=== PATIENT | male | born 1950 | race American Indian/Alaskan Native ===

== ENCOUNTER 2018-08-16 10:16 | Outpatient (REF) | payer MEDICARE, BC, SELFPAY ==
[2018-08-16 13:38] LABS: Anion Gap 8.6 mmol/L (3-11); BUN 14 mg/dL (7-18); CO2 29.4 mmol/L (21.0-32.0); CREATININE 0.96 mg/dL (0.70-1.30); Calcium 9.3 mg/dL (8.5-10.1); Chloride 104 mmol/L (98-107); Glucose 101 mg/dL (70-100); Potassium 3.8 mmol/L (3.5-5.1); Sodium 142 mmol/L (136-145)
== END 2018-08-16 10:36 ==
LOC: NCHCN 10:16
PROVIDERS: PCP Family Medicine; Visit Provider Family Medicine
DX: I10 Essential (primary) hypertension (principal)
CPT/HCPCS: 80048

== ENCOUNTER 2019-11-16 10:27 | Emergency (ER) | payer MEDICARE, BC, SELFPAY ==
[2019-11-16] VITALS (47 sets, daily range): BP systolic 138–164; BP diastolic 70–97; PULSE 65–87; RESP 7–27; TEMP 36.6; O2SAT 93–99
--- NOTE | 2019-11-16 10:30 | DI.CT_ITS ---
EXAM: CT HEAD CERVICAL SPINE WO CLINICAL HISTORY: Trauma, fall 8 feet TECHNIQUE: COMPARISON: No exams were available for comparison FINDINGS: Noncontrast cranial CT was performed. No calvarial fracture seen. Paranasal sinuses and mastoid air cells appear clear as visualized. Orbital and temporal bone structures appear intact. There is an ossified left frontal mass arising from the inner table of the skull or dura, the finding s are suggestive of meningioma. No prior studies available for comparison. There is no evidence of acute intracranial hemorrhage, mass effect, or midline shift. Cervical spine CT was performed utilizing multi slice imaging and multi planar reconstruction. Image s obtained through the lung apices are unremarkable. No cervical mass or adenopathy. Unremarkable a ppearance of the tracheal laryngeal structures. There are moderate degenerative changes of the cervical spine with multilevel disc space narrowing of the lower cervical spine and moderate hypertrophic spurring of the facet joints and endplates. There is no evidence of acute cervical spine fracture or dislocation. IMPRESSION: No evidence of acute cervical spine injury. No evidence of acute intracranial injury, incidental note is made of a 21 millimeter in diameter ossi fied left frontal mass highly suggestive of meningioma. Additional evaluation with MR both pre and p ost contrast is suggested to confirm this diagnosis and to evaluate for additional meningiomas in the brain. RADIATION DOSE DELIVERED: 0000 Total DLP
--- NOTE | 2019-11-16 10:30 | DI.CT_ITS ---
EXAM: CT CHEST WO CLINICAL HISTORY: Left rib pain, trauma TECHNIQUE: COMPARISON: CT CT HEAD CERVICAL SPINE WO from 11/16/2019 FINDINGS: CT examination of the chest was performed without contrast administration. Images obtained through t he upper abdomen show unremarkable appearance of visualized portions of spleen pancreas kidneys and a drenals. There is a tiny low-attenuation right hepatic lobe rounded lesion consistent with cyst or h emangioma. Note is made of cholelithiasis without biliary dilatation. No mediastinal mass, adenopathy, or hematoma. Cardiac size is normal. Tracheobronchial tree appears intact. No pleural effusion. No pneumothorax. Lungs are clear. There is mildly displaced left 7th rib fracture posterolaterally. No other bony thoracic injury seen . IMPRESSION: Left 7th rib fracture, mildly displaced. No associated pneumothorax or hemothorax. Cholelithiasis noted. RADIATION DOSE DELIVERED: 000
--- NOTE | 2019-11-16 10:42 | ED.GENADUL_ITS ---
Discharge Plan Disposition Condition: Stable Discharge Details Chief Complaint: Trauma Clinical Impression: Left rib fracture, Laceration of lower lip, Chin laceration, Blunt head trauma, Blunt chest trauma Primary Care Provider: Олег Haque ED Provider: Zuleyma James Home Meds and New Rx's Prescriptions: No Action cetirizine 10 mg tablet 10 mg PO DAILY RF: 0 aspirin [Aspir-81] 81 mg Tablet,Delayed Release (Dr/Ec) 81 mg PO DAILY RF: 0 lisinopril-hydrochlorothiazide 20-25 mg tablet 1 tab PO DAILY RF: 0 multivitamin Tablet 1 tab PO DAILY RF: 0 ascorbic acid (vitamin C) [Vitamin C] 500 mg Tablet 500 mg PO DAILY RF: 0 cholecalciferol (vitamin D3) [Vitamin D3] 25 mcg (1,000 unit) Capsule 25 mcg PO DAILY RF: 0 Glucosamine Chondroitin 550-30-1 mg Capsule 1 cap PO DAILY RF: 0 Discharge Instructions Instructions: Rib Fracture (ED), Head Injury (ED), Facial Laceration (ED) Additional Instructions: Follow up with primary care provider in 3-5 days. Return to ED sooner if any worsening or concerns. Increase oral fluids. Have chin sutures removed in 5 to 7 days return sooner or be seen if any signs of infection including increased redness, red streaks, swelling, drainage or fever. The lip suture is dissolvable and will dissolve on its own. Please take Tylenol or Ibuprofen with food every 4-6 hours as needed for pain and swelling. You will be sore for the next couple of days. Return immediately to the ER if you have any worsening chest pain, shortness of breath, fever coughing up blood or sputum. No soaking to your wounds, you may wash wounds under running soap and water daily allow to air dry as much as possible. Keep clean and dry. Please follow up with [facility] Neurosurgery ? ?Location: Neurosurgery is located at [facility] in [place], [place] on the third floor, [employer] [address]. Referrals: Олег Haque [Primary Care Provider] - Activity:: Activity as Tolerated Shower/Bathe:: 24 hours Diet:: As Tolerated Medical Decision Making <Zuleyma James - Last Filed: 08/13/20 15:17> 1121: Spoke with patient's Ajit, who reports she found patient on his back he appeared somewhat woozy but never lost consciousness. At this time official CT report is pending, this appears to be some intracranial hemorrhage noted on head CT. Images pushed to [facility]. Patient does take aspirin daily, images being pushed to [facility] at this time. IV orders and blood work in place. Discussed preliminary results with patient, verbalizes understanding. He is complaining a little bit of nausea denies any headache, no focal neuro deficits noted at this time. Pupils are PERRLA. Let was applied to the chin laceration. 1137: Spoke with Dr. Cueva radiologist regarding patient CTs he feels at this time is not acute traumatic bleeding but rather a meningioma in the left frontal lobe, no abnormalities noted on the C-spine. Discussed updated findings with patient and , verbalized understanding. Other findings include 7th left posterior lateral rib fracture. Radiology notified to push images to [facility]. 1139: [facility] Neurosurgery paged for consult. Patient continues to deny headache no history of complaints of headache no visual disturbances no neuro deficits noted. EXAM: CT CHEST WO CLINICAL HISTORY: Left rib pain, trauma TECHNIQUE: COMPARISON: CT CT HEAD CERVICAL SPINE WO from 11/16/2019 FINDINGS: CT examination of the chest was performed without contrast administration. Images obtained through the upper abdomen show unremarkable appearance of visualized portions of spleen pancreas kidneys and adrenals. There is a tiny low-attenuation right hepatic lobe rounded lesion consistent with cyst or hemangioma. Note is made of cholelithiasis without biliary dilatation. No mediastinal mass, adenopathy, or hematoma. Cardiac size is normal. Tracheobronchial tree appears intact. No pleural effusion. No pneumothorax. Lungs are clear. There is mildly displaced left 7th rib fracture posterolaterally. No other bony thoracic injury seen. IMPRESSION: Left 7th rib fracture, mildly displaced. No associated pneumothorax or hemothorax. Cholelithiasis noted. EXAM: CT HEAD CERVICAL SPINE WO CLINICAL HISTORY: Trauma, fall 8 feet TECHNIQUE: COMPARISON: No exams were available for comparison FINDINGS: Noncontrast cranial CT was performed. No calvarial fracture seen. Paranasal sinuses and mastoid air cells appear clear as visualized. Orbital and temporal bone structures appear intact. There is an ossified left frontal mass arising from the inner table of the skull or dura, the findings are suggestive of meningioma. No prior studies available for comparison. There is no evidence of acute intracranial hemorrhage, mass effect, or midline shift. Cervical spine CT was performed utilizing multi slice imaging and multi planar reconstruction. Images obtained through the lung apices are unremarkable. No cervical mass or adenopathy. Unremarkable appearance of the tracheal laryngeal structures. There are moderate degenerative changes of the cervical spine with multilevel disc space narrowing of the lower cervical spine and moderate hypertrophic spurring of the facet joints and endplates. There is no evidence of acute cervical spine fracture or dislocation. IMPRESSION: No evidence of acute cervical spine injury. No evidence of acute intracranial injury, incidental note is made of a 21 millimeter in diameter ossified left frontal mass highly suggestive of meningioma. Additional evaluation with MR both pre and post contrast is suggested to confirm this diagnosis and to evaluate for additional meningiomas in the brain. 1339: [facility] re-paged still have not heard back neurosurgery. Transfer center [facility] states that the images are just now being uploaded there and at 1330. 1430: Spoke with [facility] transfer center [facility] again she informs me that neurosurgery is in a case at this time it may be up to 40 more minutes until they call me back. We will order an MRI with and without brain as suggested in the CT read discussed this with patient, verbalized understanding. He is complaining of 2 or 3 out of 10 generalized tenderness to his chest wall and continues to be neurologically stable. 1440: Spoke with Dr. Gomez with neurosurgery [facility] who was personally able to view the CT he does agree with a benign meningioma diagnosis. He does not recommend emergent MRI at this time. He states that he will schedule patient for an outpatient visit and schedule outpatient MRI. MRI canceled at this time and patient discussed follow-up care and plan of care, verbalized understanding. Discussed home care and follow-up with patient, verbalized understanding. Patient ambulatory out of department without assistance. <Chai Saucedo MD - Last Filed: 11/16/19 11:56> I had a [id number] encounter with the patient. I evaluated the patient. I discussed case with MAIL TELLER/PA and I reviewed MAIL TELLER/PA note and agree with note as documented HPI <Zuleyma James - Last Filed: 11/16/19 15:17> General Mode of arrival: EMS . Date/Time Provider Initiated Documentation: 11/16/19 10:34 . Limitations to Documentation: no limitations . Information obtained by: patient and EMS . HPI Narrative: 69-year-old male presents the ED via EMS status post fall from ladder. Per EMS report patient fell approximately 8 feet when the ladder came unhooked he slid down the ladder landing on the ground. Denies loss of consciousness, is alert and oriented x4 upon arrival. He also is in a c-collar. He does have a proximately 3 cm laceration noted to his posterior chin, small 0.5 cm laceration noted to his left lower lip. There is an abrasion noted right axillary, abrasion to his right elbow, is complaining of some left anterior rib pain. Denies any C-spine, T-spine L-spine tenderness noted nontender to palpation. No abdominal pain. Pelvis is stable. Related Data Home Medications Medication Instructions Recorded Confirmed ascorbic acid (vitamin C) [Vitamin 500 mg PO DAILY 11/16/19 11/16/19 C] aspirin [Aspir-81] 81 mg PO DAILY 11/16/19 11/16/19 cetirizine 10 mg PO DAILY 11/16/19 11/16/19 cholecalciferol (vitamin D3) 25 mcg PO DAILY 11/16/19 11/16/19 [Vitamin D3] glucos sul [id number]-Mn 1 cap PO DAILY 11/16/19 11/16/19 [Glucosamine Chondroitin] lisinopril-hydrochlorothiazide 1 tab PO DAILY 11/16/19 11/16/19 multivitamin 1 tab PO DAILY 11/16/19 11/16/19 Allergies Allergy/AdvReac Type Severity Reaction Status Date / Time No Known Allergies Allergy Unverified 11/16/19 10:29 General Stated Complaint: Trauma LOTTIE: 3 Review of Systems <Zuleyma James - Last Filed: 11/16/19 15:17> Narrative: Constitutional: Negative for weight loss, alert and oriented, well groomed, normal body habitus, appears comfortable. HEENT: Denies trauma, headaches, blurry vision, nasal discharge, sore throat, trouble swallowing. Chest: Denies chest pain, palpitations, irregular rhythm, hypertension. Respiratory: Denies Shortness of breath, cough, hemoptysis. GI: Denies abdominal pain, nausea, vomiting, diarrhea, constipation. : Denies dysuria, hematuria, flank pain, rectal bleeding. Neuro: Denies dizziness, blurry vision, weakness, syncope, headache or facial numbness. Hematologic: Denies easy bruising, intolerance to heat or cold, hair loss. PFSH <Zuleyma James - Last Filed: 11/16/19 15:17> Social History Smoking/Tobacco Use Status: Former Tobacco Use Alcohol Intake: current Alcohol Intake frequency: a few times a week Drug use: Never Do you feel safe at home: Yes Do you feel safe in your relationship?: Yes Exam <Zuleyma James - Last Filed: 11/16/19 15:17> Narrative Exam Narrative: Constitutional: Alert and oriented x3. Appears stated age. Normal body habitus. Head: Normocephalic, no palpable skull fractures, step-off Eyes: Pupils PERRLA, Red reflex noted, EOM's intact. Eyelids symmetrical without lesions, discharge, or swelling. ENT: Bilateral TM's WNL, External ear normal to inspection, no mastoid TTP, swelling, or erythema, Nasal turbinates WNL, no nasal discharge. Normal dentition, teeth are intact, does have a laceration to the left lower outer and inner lip measuring approximately 0.5 cm posterior pharynx WNL, no exudate. Chest: RRR, Normal S1, S2, distal pulses intact. Tenderness noted left anterior chest. Resp: Lungs clear to auscultation bilaterally, no wheezes, rales, or rhonchi. Musculoskeletal: Normal gait, 5/5 strength to all four extremities. Skin: Capillary refill less than 2 sec. Neurologic: Cranial nerves II-XII intact. Alert and oriented x 3. DTR's intact. Hematologic/Lymphatic: No ecchymosis, no lymphadenopathy. Skin Full body images: 1. Approximately 3 cm laceration partial-thickness 2. Approximate 0.5 cm laceration partial-thickness, external and internal 3. Superficial abrasion 4. Ecchymosis 5. Superficial avulsion measuring approximately 0.5 cm Course <Zuleyma James - Last Filed: 11/16/19 15:17> Vital Signs Vital signs: Vital Signs Temperature 36.6 C 11/16/19 10:29 Pulse 82 11/16/19 10:29 Respiratory Rate 18 11/16/19 10:29 Blood Pressure 148/80 H 11/16/19 10:29 Pulse Oximetry 97 11/16/19 10:29 Temperature 36.6 C 11/16/19 10:29 Temperature Source Temporal Artery Scan 11/16/19 10:29 Pulse 82 11/16/19 10:29 Respiratory Rate 18 11/16/19 10:29 Respiratory Effort Non-Labored 11/16/19 10:35 Blood Pressure 148/80 H 11/16/19 10:29 Blood Pressure Position Sitting 11/16/19 10:29 Pulse Oximetry 97 11/16/19 10:29 Oxygen Delivery Method Room Air 11/16/19 10:29 Oxygen Flow Rate 0 11/16/19 10:29 Pain Level 2 11/16/19 10:29 Procedures <Zuleyma James - Last Filed: 11/16/19 15:17> Laceration Laceration 1: Site: lip Side (If applicable): left Size (cm): 0.5 Description: stellate, flap, clean and involves naomie border Depth: [id number] Local Anesthetic: Lidocaine 1% Amount of anesthesia used (mL): 1 Pre-repair: wound explored, irrigated extensively and deep structures intact Skin layer closed with: vicryl Size (cm): 5-0 Number of sutures: 1 Technique: simple, interrupted Laceration 2: Site: face (submental chin) Size (cm): 3 Description: irregular, clean and involves naomie border Depth: simple, single layer Local Anesthetic: Lidocaine 1% and other anesthetic (LET topical) Amount of anesthesia used (mL): 2 Pre-repair: wound explored, irrigated extensively and deep structures intact Skin layer closed with: nylon Size (cm): 4-0 Number of sutures: 4 Technique: simple, interrupted
[2019-11-16] MEDS: Acetaminophen 325 MG TAB PO ×2 (10:50→14:30)
[2019-11-16] MEDS: Ondansetron O.D.T. 4 MG TABEF PO (10:55)
[2019-11-16] MEDS: Normal Saline Flush 10 ML SYR IVP (11:00)
[2019-11-16] MEDS: Lidocaine/Epinephri/Tetracaine Topical Gel 3 ML TP (11:03)
[2019-11-16 11:38] LABS: Abs Immature Grans 0.05 10^3/uL (0.0-0.06); Absolute Basophil Count 0.03 10^3/uL (0.0-0.2); Absolute Eosinophil Count 0.13 10^3/uL (0.0-0.7); Absolute Lymphocyte Count 1.41 10^3/uL (1.2-3.4); Absolute Monocyte Count 0.76 10^3/uL (0.1-0.8); Absolute Neutrophil Count 6.77 10^3/uL (1.2-6.7); Basophils % 0.3; Eosinophils % 1.4; HCT 43.3 % (40.0-50.0); HGB 15.1 g/dL (13.5-17.5); Immature Grans % 0.5; Lymphocytes % 15.4; MCH 32.8 pg (27.0-33.0); MCHC 34.9 % (32.0-36.0); MCV 93.9 fL (80-95); MPV 9.2 fL (8.0-11.0); Monocytes % 8.3; Neutrophils % 74.1; Nucleated RBC 0 %; Platelet Count 251 10^3/uL (130-400); RBC 4.61 10^6/uL (4.36-5.78); RDW 12.9 % (11.8-14.1); RDW-SD 44.2 fL; WBC 9.15 10^3/uL (4.4-10.8)
[2019-11-16] MEDS: Normal Saline 250 ML 500 ML IV (11:45)
[2019-11-16 11:53] LABS: Prothrombin Time 9.9 sec (9.3-11.0)
[2019-11-16 11:58] LABS: ALT 29 U/L (16-63); AST 20 U/L (15-37); Albumin 3.8 g/dL (3.4-5.0); Alkaline Phosphatase 68 U/L (46-116); Anion Gap 10.7 mmol/L (3-11); BUN 20 mg/dL (7-18); Bilirubin, Total 0.7 mg/dL (0.2-1.0); CO2 25.3 mmol/L (21.0-32.0); Calcium 9.7 mg/dL (8.5-10.1); Chloride 105 mmol/L (98-107); Glucose 146 mg/dL (74-106); Potassium 3.5 mmol/L (3.5-5.1); Sodium 141 mmol/L (136-145); Total Protein 7.6 g/dL (6.4-8.2)
== END 2019-11-16 15:00 ==
PROVIDERS: Emergency Provider Registered Nurse Emergency; PCP Family Medicine
DX: S22.32XA Fracture of one rib, left side, initial encounter for closed fracture (principal); S01.511A Laceration without foreign body of lip, initial encounter; S09.90XA Unspecified injury of head, initial encounter; S50.311A Abrasion of right elbow, initial encounter; W11.XXXA Fall on and from ladder, initial encounter; R40.2412 Glasgow coma scale score 13-15, at arrival to emergency department; Z79.82 Long term (current) use of aspirin; S01.81XA Laceration without foreign body of other part of head, initial encounter
CPT/HCPCS: 12013; 36415; 71250; 80053; 90471; 96360; 99284; 70450; 72125; 85025; 85610; 99283

== ENCOUNTER → 2020-08-08 10:36 | Outpatient (BNVA) | payer MEDICARE, BC, SELFPAY | PROVIDERS: PCP Family Medicine; Referring Provider Family Medicine; Visit Provider Surgery | DX: K62.5 Hemorrhage of anus and rectum (principal) | CPT/HCPCS: 99202; 99213 ==

== ENCOUNTER 2020-08-14 02:41 | Outpatient (CLI) | payer MEDICARE, BC, SELFPAY ==
[2020-08-14 10:54] LABS: Source Nasal/Nares
[2020-08-14 13:36] LABS: COVID-19 PCR Negative (Negative)
== END 2020-08-14 02:42 | disposition home or self-care (01) ==
LOC: LBO 02:41
PROVIDERS: PCP Family Medicine; Visit Provider Surgery
DX: Z20.822 Contact with and (suspected) exposure to COVID-19 (principal); Z01.818 Encounter for other preprocedural examination
CPT/HCPCS: 87635

== ENCOUNTER 2020-08-16 06:02 | Day surgery (SDC) | payer MEDICARE, BC, SELFPAY ==
[2020-08-16 06:16] VITALS: BP 122/80; PULSE 90; RESP 16; TEMP 36.2; O2SAT 99
[2020-08-16] MEDS: Lactated Ringers 1,000 ML 80 ML IV (06:33)
--- NOTE | 2020-08-16 07:11 | W.ANESPRE ---
General Info Date of Service Date Performed: 08/16/20 Height: 6 ft 2 in Weight: 102.6 kg Body Mass Index (BMI): 29.0 Surgical Procedure: Operation Date: 08/16/20 07:35 Proposed Procedures Side Surgeon frederic Li, DO Meds Allergies and Home Medications Allergies Allergy/AdvReac Type Severity Reaction Status Date / Time No Known Allergies Allergy Unverified 08/13/20 09:45 Home Medication Medication Instructions Recorded ascorbic acid (vitamin C) [Vitamin 500 mg PO DAILY 11/16/19 C] aspirin [Aspir-81] 81 mg PO DAILY 11/16/19 cetirizine 10 mg PO DAILY 11/16/19 cholecalciferol (vitamin D3) 25 mcg PO DAILY 11/16/19 [Vitamin D3] glucos sul [id number]-C-Mn 1 cap PO DAILY 11/16/19 [Glucosamine Chondroitin] lisinopril-hydrochlorothiazide 1 tab PO DAILY 11/16/19 multivitamin 1 tab PO DAILY 11/16/19 Current Visit Medications: Current Medications Generic Name Dose Route Start Last Admin Trade Name Freq PRN Reason Stop Dose Admin Ringer's Solution 1,000 mls @ 80 mls/hr 08/16/20 06:00 08/16/20 06:33 IV 09/14/20 23:59 80 mls/hr INFUSION JOSH Administration IV Miscellaneous Supplies 1 each 08/16/20 06:00 Iv Access IV 09/14/20 23:59 DIRECTED JOSH Sodium Chloride 0 ml 08/16/20 06:00 Normal Saline Flush 10 Ml Syr IV 09/14/20 23:59 PRN PRN Sodium Chloride 0 ml 08/16/20 06:00 Normal Saline 10 Ml Vial IJ 09/14/20 23:59 DIRECTED PRN Sterile Water 0 ml 08/16/20 06:00 Water,Injection,Sterile 10 Ml Vial IJ 09/14/20 23:59 DIRECTED PRN PFSH Active Problems Active Problems: Problem Status Onset Code Rectal bleeding K62.5 Impacted cerumen 12/06/13 H61.20 Hematoma 06/18/14 T14.8XXA Medical History Medical History Allergic rhinitis Dermatitis of ear canal H/O meningioma of the brain History of pilonidal cyst Hyperlipidemia Hypertension Osteoarthritis Prediabetes Sleep apnea Tobacco Smoking/Tobacco Use Status: Former Tobacco Use Alcohol Alcohol Intake: current Alcohol intake frequency: a few times a week Substance Use Substance use: Never Substance use type: does not use Vital Signs and Lab Results Vital Signs Most Recent Vital Signs in EMR: Most Recent Vital Signs Temp Pulse Resp BP Pulse Ox 36.2 C L 90 16 122/80 99 08/16/20 06:16 08/16/20 06:16 08/16/20 06:16 08/16/20 06:16 08/16/20 06:16 Lab Results Blood Type / Crossmatch: No Data to Display Complete Blood Count: No Data to Display Complete Metabolic Panel: No Data to Display Liver Function Panel: No Data to Display Coagulation Panel: No Data to Display Cardiac Panel: No Data to Display Arterial Blood Gas: No Data to Display Venous Blood Gas: No Data to Display Pancreas Panel: No Data to Display Thyroid Panel: No Data to Display Infectious Disease: Coronavirus (COVID-19)(PCR) Negative (Negative) 08/14/20 09:27 08/14/20 Coronavirus 2019 Source Nasal/nares 08/14/20 09:27 08/14/20 Blood Cultures: No Data to Display Toxicology Panel: No Data to Display Anesthesia Assessment and Plan Anesthesia History Personal History: No History of Anesthesia Complications Family History: No Family History of Anesthesia Complications Exercise Tolerance Exercise Tolerance: Metabolic Equivalents>4 Pertinent Negatives Pertinent Negatives: No Symptoms of GERD Cardiac & Pulmonary Exam Cardiac Exam: Normal S1/S2 Heart Sounds Pulmonary Exam: Clear Bilateral Breath Sounds Airway Exam Known Difficult Airway: No Mallampati Class: 2 Mouth Opening: Normal (> 3cm) Thyromental Distance: Greater than 3 cm Neck Range of Motion: Full ROM Neck Circumference: Normal Teeth Condition: Normal Dentition ASA Classification ASA Score: ASA 2 Emergency Case?: No NPO Status NPO Status: NPO Clears >2 hours, Solids >8 hours Anesthesia Plan Resuscitation Status: Full Code Anesthesia Technique: General Anesthesia Airway Planned: Natural Airway Monitors Used: Standard Monitors
[2020-08-16 07:24] VITALS: BMI 29.0
--- NOTE | 2020-08-16 08:22 | W.ANESPOSTOP ---
Postoperative Evaluation Date, Time and Location Date Performed: 08/16/20 Time Performed: 08:22 Patient Location: Day Surgery Unit Vital Signs Most Recent Imported Vital Signs: Most Recent Vital Signs Temp Pulse Resp BP Pulse Ox 36.2 C L 90 16 122/80 99 08/16/20 06:16 08/16/20 06:16 08/16/20 06:16 08/16/20 06:16 08/16/20 06:16 Most Recent Manually Entered Vital Signs: Adult Blood Pressure: 123/70 Heart Rate: 76 Respirations: 16 Oxygen Saturation (%): 93 Temperature (C): 36.5 C Pain Score (0-10 Scale): 0 Pain Score Most Recent Pain Score: Most Recent Pain Score Pain Level 0 08/16/20 06:16 Assessment Mental Status: Awake (Alert & Oriented to Patient Baseline) Airway and Respiratory Function: Patent airway with normal (patient baseline) respiratory exam Cardiovascular Function: Hemodynamically Stable Hydration Status: Adequately Hydrated Nausea & Vomiting: No Nausea or Vomiting Pain: Pt. Denies Any Pain Peripheral Nerve Block: Patient did not receive a nerve block
[2020-08-16 08:23] VITALS: BP 123/70; PULSE 76; RESP 16; TEMPC 36.5; O2SAT 93
[2020-08-16 08:24] VITALS: BP 123/70; PULSE 79; RESP 16; TEMP 36.5; O2SAT 93
--- NOTE | 2020-08-16 08:28 | COLE_ITS ---
Date of service: 08/16/20 Time of Service: 08:28 Colonoscopy Report Date of procedure: 08/16/20 Pre-op diagnosis general: gross + SHANITA Post-op diagnosis procedure note: other (severe diverticula) Surgeon: Jovanna Li Anesthesia Type: General:No Airway Estimated blood loss (mL): 0 Pathology: none sent Complications: None Disposition: same day Prep: Miralax/Dulcolax Retraction Time: 8 Procedure Description: After informed consent was obtained the patient was taken to the procedure room and placed in a left decubitous position. Monitors were applied and a time out was done. The patients name, date of , procedure, allergies to medications and metal in their body was reviewed. The patient was then sedated. Once sedated and comfortable a rectal exam was done. External exam was normal. Internal exam revealed a normal sphincter tone and no palpable masses. The scope was then introduced and retrofelexed. No fissures are noted in the rectum. No masses noted in the rectum. Grade I internal hemorrhoids were identified. The scope was then advanced to the cecum without difficulty. The TI and appendiceal orifice were identified. The prep was good. The scope was then slowly retracted over 8 minutes back into the rectum. There are no polyps or AVMs noted. He does have severe diverticular disease that does extend all the way over to the transverse colon. There are multiple large and very sherry us diverticula. There is no signs of bleeding or infection. There is no signs of any bleeding today. the scope was removed, and the patient was woken up, and taken back to Same day surgery in stable condition. The patient tolerated the procedure well and there were no immediate complications. Follow up: The patient does not require any further colonoscopies, unless they develop changes in bowel habits or other new gastrointestinal complaints.
--- NOTE | 2020-08-16 08:41 | PDOC.DSDIS_ITS ---
Discharge Plan Disposition Patient Disposition: HOME Condition: Good Discharge Details Reason For Visit: colon scope Attending Provider: Jovanna Li Primary Care Provider: Олег Haque Home Meds and New Rx's Prescriptions: No Action cetirizine 10 mg tablet 10 mg PO DAILY RF: 0 aspirin [Aspir-81] 81 mg Tablet,Delayed Release (Dr/Ec) 81 mg PO DAILY RF: 0 lisinopril-hydrochlorothiazide 20-25 mg tablet 1 tab PO DAILY RF: 0 multivitamin Tablet 1 tab PO DAILY RF: 0 ascorbic acid (vitamin C) [Vitamin C] 500 mg Tablet 500 mg PO DAILY RF: 0 cholecalciferol (vitamin D3) [Vitamin D3] 25 mcg (1,000 unit) Capsule 25 mcg PO DAILY RF: 0 Glucosamine Chondroitin 550-30-1 mg Capsule 1 cap PO DAILY RF: 0 Discharge Instructions Additional Instructions: [facility] Colonoscopy Post- Op Instructions Instructions for Everyone who is given Anesthesia: For your safety, please do the following for the next twenty-four (24) hours: *Do Not operate a motor vehicle (car, truck, motorcycle, etc.) *Do Not drink alcoholic beverages or use any recreational drugs for the first 24 hours or while taking pain medications. The medications in your body may have a reaction that can be dangerous. *Do Not make any important decisions or sign any important papers. Findings: Diverticula Make sure you are eating a high fiber diet and make sure you are moving your bowels on a regular basis, and not straining. Follow up:Dr. Haque as needed 1. No lifting over 20 pounds or strenuous activity for the first 24 hours after your procedure. After 24 hours there are no restrictions on your activity but you may feel fatigued for a few days. 2. After you arrive home you may have a light meal and return to your normal diet as you can tolerate it without feeling sick to your stomach. 3. You may have a bloated, gaseous feeling in your belly (abdomen) after a colonoscopy. Passing gas and belching will help. Walking or lying down on your left side with your knees flexed may relieve the discomfort. Call the office at [phone] (Office) or [phone] (Hospital) right away if you notice any of the following: a.Vomiting of blood or ?coffee ground stools?. b.Rectal bleeding 1Tbsp, blood clots or continuous bleeding. c.Severe belly (abdominal) pain. d.A hard distended belly (abdomen) and an inability to pass gas. 4. Please don?t expect to have a normal BM (bowel movement) for 2-3 days after your procedure. 5. If there are questions regarding the findings of your procedure, please contact your doctor 6. If you are unable to contact your doctor with a problem, contact the hospital at [phone]. 7. Continue all your regular medications unless directed otherwise. I understand the above instructions and have no questions. Signature of Patient or Adult Escort Name of Responsible Adult Escort Signature of Nurse Date/Time DIVERTICULAR DISEASE OVERVIEW???A diverticulum is a pouch-like structure that can form through points of weakness in the muscular wall of the colon (ie, at points where blood vessels pass through the wall). Diverticulosis affects men and women equally. The risk of diverticular disease increases with age. It occurs throughout the world but is seen more commonly in developed countries. WHAT IS DIVERTICULAR DISEASE? Diverticulosis???Diverticulosis merely describes the presence of diverticula. Diverticulosis is often found during a test done for other reasons, such as flexible sigmoidoscopy, colonoscopy, or barium enema. Most people with diverticulosis have no symptoms and will remain symptom free for the rest of their lives. A person with diverticulosis may have diverticulitis, or diverticular bleeding. Diverticulitis???Inflammation of a diverticulum (diverticulitis) occurs when there is thinning and breakdown of the diverticular wall. This may be caused by increased pressure within the colon or by hardened particles of stool, which can become lodged within the diverticulum. The symptoms of diverticulitis depend upon the degree of inflammation present. The most common symptom is pain in the left lower abdomen. Other symptoms can include nausea and vomiting, constipation, diarrhea, and urinary symptoms such as pain or burning when urinating or the frequent need to urinate. Diverticulitis is divided into simple and complicated forms. ?Simple diverticulitis, which accounts for 75 percent of cases, is not associated with complications and typically responds to medical treatment without surgery. ?Complicated diverticulitis occurs in 25 percent of cases and usually requires surgery. Complications associated with diverticulitis can include the following: ?Abscess ? a localized collection of pus ?Fistula ? an abnormal tract between two areas that are not normally connected (eg, bowel and bladder) ?Obstruction ? a blockage of the colon ?Peritonitis ? infection involving the space around the abdominal organ ?Sepsis ? overwhelming body-wide infection that can lead to failure of multiple organs Diverticular bleeding???Diverticular bleeding occurs when a small artery located within a diverticulum is eroded and bleeds into the colon. Diverticular bleeding usually causes painless bleeding from the rectum. In approximately 50 percent of cases, the person will see maroon or bright red blood with bowel movements. Is bleeding with a bowel movement normal?It is not normal to see blood in a bowel movement; this can be a sign of several conditions, most of which are not serious (eg, hemorrhoids) but some of which are serious and require immediate treatment. Anyone who sees blood after a bowel movement should consult with their healthcare provider to determine if further testing or evaluation is needed. DIVERTICULOSIS AND DIVERTICULITIS DIAGNOSIS???Diverticulosis is often found during tests performed for other reasons. ?Barium?enema ? This is an x-ray study that uses barium in an enema to view the outline of the lower intestinal tract. This is an older test and has been largely replaced by computed tomography (CT) scan. ?Flexible sigmoidoscopy ? This is an examination of the inside of the sigmoid colon with a thin, flexible tube that contains a camera. ?Colonoscopy ? This is an examination of the inside of the entire colon. ?CT scan ? A CT scan is often used to diagnose diverticulitis and its complications. If diverticulitis (not just diverticulosis) is suspected, the above three tests should not be used because of the risk of perforation. TREATMENT Diverticulosis???People with diverticulosis who do not have symptoms do not require treatment. However, most clinicians recommend increasing fiber in the diet, which can help to bulk the stools and possibly prevent the development of new diverticula, diverticulitis, or diverticular bleeding. Fiber is not proven to prevent these conditions in all patients but may help to control recurrent episodes in some. Increase fiber???Fruits and vegetables are a good source of fiber.? Fiber content of packaged foods can be calculated by reading the nutrition label. Seeds and nuts???Patients with diverticular disease have historically been advised to avoid whole pieces of fiber (such as seeds, corn, and nuts) because of concern that these foods could cause an episode of diverticulitis. However, this belief is completely unproven. We do not suggest that patients with diverticulosis avoid seeds, corn, or nuts. Diverticulitis???Treatment of diverticulitis depends upon how severe your sym ptoms are. Home treatment???If you have mild symptoms of diverticulitis (mild abdominal pain, usually left lower abdomen), you can be treated at home with a clear liquid diet and oral antibiotics. However, if you develop one or more of the following signs or symptoms, you should seek immediate medical attention: ?Temperature >100.1?F (38?C) ?Worsening or severe abdominal pain ?An inability to tolerate fluids Hospital treatment???If you have moderate to severe symptoms, you may be hospitalized for treatment. During this time, you are not allowed to eat or drink; antibiotics and fluids are given into a vein. If you develop an abscess of the colon, you may require drainage of the abscess (usually performed by placing a drainage tube across the abdominal wall) or by surgically opening the affected area. Surgery???If you develop a generalized infection in the abdomen (peritonitis), you will usually require an emergency operation. A two-part operation may be necessary in some cases. ?The first operation involves removal of the diseased colon and creation of a colostomy. A colostomy is an opening between the colon and the skin, where a bag is attached to collect waste from the intestine. The lower end of the colon is temporarily sewed closed to allow it to heal. ?Approximately three to six months later, a second operation is performed to reconnect the two parts of the colon and close the opening in the skin. You are then able to empty your bowels through the rectum. Sometimes patients require up to a year to recover from the first operation, depending on how sick they were. In non-emergency situations, the diseased area of the colon can be removed and the two ends of the colon can be reconnected in one operation, without the need for a colostomy. Surgery versus medical therapy???An operation to remove the diseased area of the colon may be necessary if you do not improve with medical therapy. After an episode of uncomplicated diverticulitis, elective surgery is generally not required as the risk of another attack or requiring emergency surgery is low. However, patients with persistent symptoms attributable to diverticulitis, a history of complicated diverticulitis, or a compromised immune system should be evaluated for possible surgery to prevent another attack. In such patients, another attack has been associated with a higher risk of complications or . Of course, the decision will also depend in part upon your other medical conditions and ability to undergo surgery. In many cases, an elective operation can be performed laparoscopically, using small incisions, rather than the typical vertical (up and down) abdominal incision. Laparoscopic surgery usually allows you to recover more quickly and shortens the hospital stay. After diverticulitis resolves???After an episode of diverticulitis resolves, if you have not had a recent colonoscopy, the entire length of the colon should be evaluated to determine the extent of disease and to rule out the presence of abnormal lesions such as polyps or cancer. Recommended tests include colonoscopy, barium enema and sigmoidoscopy, or CT colonography. Diverticular bleeding???Most cases of diverticular bleeding resolve on their own. However, some people will need further testing or treatment to stop bleeding, which may include a colonoscopy, angiography (a treatment that blocks off the bleeding artery), bleeding scan, or surgery. DIVERTICULAR DISEASE PROGNOSIS Diverticulosis???Over time, diverticulosis may cause no problems or it may cause episodes of bleeding and/or diverticulitis. Approximately 15 to 25 percent of people with diverticulosis will develop diverticulitis, while 5 to 15 percent will develop diverticular bleeding. Diverticulitis???Approximately 85 percent of people with uncomplicated divert iculitis will respond to medical treatment, while approximately 15 percent of patients will need an operation. After successful treatment for a first attack of diverticulitis, one-third of patients will remain asymptomatic, one-third will have episodic cramps without diverticulitis, and one-third will go on to have a second attack of diverticulitis. The prognosis tends to remain similar following a second attack of diverticulitis. Only 10 percent of people remain symptom-free after a second attack. Subsequent attacks tend to be of similar severity, not increasing in severity as previously believed. ? ? ? High Fiber Diet What is Dietary Fiber? All fiber comes from plants, bushes, paras or trees.? Of course, the ones that we eat provide us with fruits, vegetables and grains.? There are many different types of fiber but the three that are most important to the health of the body are: Insoluble Fiber This fiber does not dissolve in water, nor is it fermented by the bacteria residing in the colon.? Rather, it retains water and in so doing, helps to promote a larger, bulkier and more regular bowel activity.? This, in turn, may be important in preventing disorder such as diverticulosis and hemorrhoids, and in sweeping out certain toxins and cancer causing carcinogens.? Sources of insoluble fiber are: ? whole grain wheat and other whole grains ? corn bran, including popcorn, unflavored and unsweetened ? nuts and seeds ? potatoes and the skins from most fruits from trees such as apples, bananas and avocados ? many green vegetables such as green beans, zucchini, celery and cauliflower ? some fruit plants such as tomatoes and kiwi Soluble Fiber These fibers are fermented or used by the colon bacteria as a food source or nourishment.? When these good bacteria grow and thrive, many health benefits occur in both the colon and the body.? Soluble fiber is present in some degree in most edible plant foods, but the ones with the most soluble fiber include: ? legumes such as peas and most beans, including soybeans ? oats, rye and barley ? many fruits such as berries, plums, apples bananas and pears ? certain vegetables such as broccoli and carrots ? most root vegetables ? psyllium husk supplement products Prebiotic Soluble Fiber These are relatively newly discovered soluble plant fibers.? The technical name for this fiber is inulin or fructan. When these soluble fibers are fermented by the good colon bacteria, some further significant health benefits have been shown to occur by research in many medical centers. These soluble prebiotic fibers occur in significant amounts in: ? asparagus ? yams ? onions ? garlic ? bananas ? leeks ? agave ? chicory and other root vegetables such as [place] artichokes ? wheat, rye and barley (smaller amounts) Benefits of a High Fiber Diet The health benefits of a high fiber diet, consumed on a regular basis and reaching recommended amounts (below), are now fairly well-defined. There are some additional benefits in the early research stage with the prebiotic soluble fibers. What is now known regarding a high fiber diet include: Bowel Regularity A high fiber diet promotes regularity with a softer, bulkier and regular stool pattern. This decreases the chance of hemorrhoids, diverticulosis and perhaps colon cancer. Cholesterol and Reduced Triglycerides The soluble fibers are the ones that will reduce cholesterol levels when used on a regular basis. Psyllium husk and prebiotic soluble fiber will also reduce cholesterol. They may also reduce the incidence of coronary heart disease. Oats, flax seeds and legumes or beans are the recommended fibers. Colon Polyps and Cancer It is still not certain if a high fiber diet helps prevent colon cancer. Considerable research suggests that this may occur. Certainly it makes sense to increase regularity and so speed the movement of cancer causing carcinogens through the bowel. In addition, reducing a heavy meat diet reduces the bile flow from the liver in a favorable way. This, too, reduces the amount of carcinogens that reach and are manufactured in the colon. Finally, a high fiber diet, including prebiotic soluble fiber, increases the integrity and health of the wall of the colon. The risk of cancer may be reduced. Colon Wall Integrity A high fiber diet changes the bacterial makeup of the colon toward a more favorable balance. For instance, it is known that those people with obesity, diabetes type 2 and inflammatory bowel disease have a predominance of bad bacteria in the colon. This, in turn, may render the bowel wall weak and allow bacteria and, indeed, even toxins to seep through. A high fiber diet with a modest reduction in animal and meat products may return the bacterial makeup to a more positive balance. This, in particular, has been seen when the soluble fiber prebiotics are added to the diet. Blood Sugar Soluble fiber such as in legumes (beans), oats and in prebiotic fibers slows the absorption of blood sugar and so helps regulate the sugar in the blood. Insoluble fiber on a regular basis is associated with reduced risk of type 2 diabetes. Weight Loss High fiber diets are more filling and give a sense of fullness sooner than an animal and meat based diet does. In addition, the soluble prebiotic fibers have been shown to turn off the hunger hormones produced in the wall of the gut and to increase the hormones that give a sense of fullness. Those hormones are made in the wall of the gut. New medical research has shown that the bacterial makeup in the colon in overweight people is abnormal to the extent that they manufacture and absorb almost twice the number of calories through the colon wall as do normals. Prebiotic fibers (below) will help change this hormonal balancein a favorable way. Bacteria and the Function of the Colon The colon finishes the digestive process. Hopefully, the waste products move through in a nice regular manner. Insoluble fibers help this process by retaining water and so producing a bulkier, softer stool, which is easy to pass. The additional role of the colon is to provide a home for an enormous number of micro-organisms, mostly bacteria. Recent research has shown that there are over 1,000 species of bacteria with a total bacterial count ten times the number of cells in the body. These bacteria play a major role in keeping the colon wall itself healthy. In addition, these good bacteria produce a very strong immune system for the body. They significantly increase calcium absorption and bone density. They provide other documented benefits. It is the soluble fibers in the diet that are so effective in stimulating the growth of good colon bacteria. How Much is Enough? The amount of fiber in food is measured in grams.? National nutritional authorities recommend the following amounts of dietary fiber daily. Under Age 50? Over Age 50 Men? 38 grams? 30 grams Women??? 25 grams? 21 grams For a week or so, it is best to tally the amount of fiber you are consuming.? Boxed and packaged foods will have the amount of fiber per serving on the nutrition label. Which Fibers and Which Foods are Best? As noted, healthy fiber is only found in plants. The three major categories are whole grains, fruits and vegetables. Whole Grains Wheat, oats, barley, wild or brown rice, amaranth, buckwheat, bulgur, corn, millet, quinoa, rye, sorghum, teff and triticals. By far, wheat, oats and wild or brown rice are most common. Always buy whole grain products. White bread, baked goods and rolls almost always are made from wheat flour. Wheat flour is white because most of the fiber, vitamins and other nutrients have been removed. Try not buy enriched grains. What this means is that simple white flour has had vitamins added to it by the pin drafter operator. The word, enriched, implies a good and healthy product. On the contrary, enriched means that most of the fiber has been removed and a few vitamins added. Fruits Fruits come from trees such as apple and pear or from bushes or paras. You should eat a wide variety of fruits, preferably with every meal. In many cases, the skin of a fruit such as apple will contain much of the insoluble fiber while the pulp contains most of the soluble fiber. To the extent possible, buy organic fruits as these will have little or no pesticides. Always wash fruit. Vegetables Eat a wide variety of vegetables. They should be a mainstay of lunch and dinners. Frozen vegetables retain as much nutrition and fiber as fresh vegetables. As with fruit, try to buy organic to reduce any residual pesticide ingestion. Wash fresh vegetables thoroughly. Cruciferous vegetables such as broccoli, [place] sprouts and cauliflower contain certain chemicals such as sulforaphane. This substance has very strong anti-cancer properties and should be eaten frequently. Legumes, Beans, Peas and Soybeans These vegetables have plenty of soluble fiber and should be part of a varied vegetable intake. Beans, in particular, contain a certain type of fiber that may lead to harmless gas or bloating. Nuts and Seeds These are rich sources of fiber and are a good substitute for sweets such as candies and baked sweet goods. While nuts and seeds are rich in fiber, they also contain vegetable fat and so can and do add calories. Read the Labels As noted, fresh and frozen foods are usually better.? They have good nutrition and few, if any, chemicals added to them.? When buying packaged foods and, in particular grains, look for three things: ? The first word on the label should be whole, such as whole wheat or whole grain. ? Check out the calories and the amount of fiber in a serving. ? How many and what other additives or chemicals are added.? Fewer is always better.? Do you know what each additive does?? Some are added not for the benefit of the head buyer tobacco but rather for manufacturers.? These could and do include sugar, artificial flavor, chemicals to prevent oxidation and spoilage, emulsifiers to blend the product.? You have to be a house detective. Fiber Facts, Nuggets and Pearls ? For breakfast you can easily get the day started well by using a high fiber, whole grain cereal.? Check the labels.? Add fruit such as blueberries and bananas.? If you are an egg eater, use whole wheat or grain toast.? Adding wheat germ gives you a good fiber kick. ? Always use whole grain or wheat with rolls and sandwiches.? Does your fast food store not have them?? Perhaps you look elsewhere.? Eating an occasional black banks or veggie burger provides variety. ? Snacks should consist of fruit and/or nuts.? While nuts are loaded with fiber, they are an energy rich food, meaning they have a lot of calories in a small packet. ? Fruit juices should contain pulp.? Clear juices such as clear orange, pear or apple juice contain little fiber and have a lot of fructose.? Prune juice is usually high in fiber. ? Homemade soups ? adding fresh or frozen vegetables to a chicken or vegetable stock is a good way to start homemade soup. ? Salads ? adding cooked and then chilled vegetables provide great flavoring to almost any salad.? Remember, a [place] salad has lots of cooked corn in it.? Small slices of apples or oranges and nuts such as chopped walnuts or sliced almonds always adds taste, variety and fiber to almost any salad. ? Fruit ? Try to eat fruit of some type with almost every meal. ? Rethink how you place the various foods on your dinner plate.? Reducing the portions of the meat or animal food portion to the side with equal or more portions of vegetables, legumes and fruits portion always allows for more fiber.? There was never anything magic about making the meat or animal food portion the main part of the dinner plate.? Eating from smaller plates can, over time, trick your mind and spray applicator habit of using a dinner plate.? Again, there is nothing magic in an 11, 12, or 13 inch dinner plate. Fiber Supplements There are a variety of fiber supplements available on the food or pharmacy [facility]. Psyllium This soluble plant fiber has been used in [place] for over 2,000 years. It is a soluble fiber with mucilage in it. This acts to retain a lot of water and also is fermented by colon bacteria. When 7 grams a day are used, it does lower cholesterol. Metamucil in various forms is psyllium. Methyl Cellulose All the cellulose products come from finely ground wood chips which are then treated in a variety of ways such as boiling in acids. Methyl cellulose is an insoluble fiber which does dissolve in water. It is also an emulsifier, meaning it blends oils and water. Citrucel is methyl cellulose (MC). MC may not be appropriate for Crohn?s disease or ulcerative colitis as several medical studies have shown that certain emulsifiers dissolve the mucous lining of the colon in animals prone to Crohn?s disease. This then allows bacteria to invade the underlying tissue. Inulin Inulin is a soluble prebiotic fiber found in many foods and which are fermented mostly in the left side of the colon. It is available in a supplement as generic inulin and in Fiber Choice. Oligofructose FOS These are also prebiotic fibers. They are fermented very quickly in the right side of the colon. Prebiotin [email or web address]://www.[employer]/ This product is a combination of oligofructose, which feeds the bacteria in the right side of the colon and inulin, which does the same in the left side of the colon. There seems to be a benefit for this particular formula based on medical research. Prebiotic Soluble Fiber These may be the healthiest of all the soluble fibers.? They grow in many plants and have had a great deal of research done on them in the last 10-15 years.? These fibers are found in asparagus, yams and other root vegetables such as chicory, garlic, onion, leeks and in smaller amounts in wheat.? This research has shown the following: ? Increase in good and decrease in bad colon bacteria ? Increase calcium absorption and enhanced bone mass ? Enhanced immune system ? Appetite and weight control by changing the hormone appetite signals to the brain ? May decrease colon cancer incidence ? Reduce or correct a leaky colon Eating a wide variety of plant food up to the recommended amount will likely give you enough prebiotic fiber. Supplements such as Prebiotin https://www.[employer]/ can be added to the diet. Short Chain Fatty Acids (SCFA) Some rather remarkable research findings have shown that one of the benefits of ingesting a lot of soluble fiber, in particular the prebiotic ones, results in larger amounts of SCFAs in the colon.? These SCFAs are made by the good bacteria in the colon such as Bifidobacter and Lactobacillus.? These small molecules have been shown to do the following: ? Enhance the health and integrity of the colon wall ? Provide nourishment for the cells that actually line the colon ? Increases the acidity of the colon which is a very real health benefit ? Stabilize blood sugar for diabetics ? Reduce blood cholesterol and triglyceride ? Significantly enhance immunity ? May be a benefit for Crohn?s disease and ulcerative colitis patients Fiber and Gas Everyone has intestinal gas and that is a good thing.? It means that bacteria, hopefully the good ones, are thriving.? The normal amount of flatus passed each day depends on sex and what is eaten.? The normal number of flatus is 10-20 times a day.? When the bacteria that make intestinal gases are growing, it also means that other good bacteria are using the same fibers to grow and produce multiple health benefits, including the production of healthy short-chain fatty acids.? These substances are produced quietly in the colon and produce many health-related outcomes. Soluble fiber should always be used in a gradual manner.? If too much is consumed at any one time, then excess, but harmless, intestinal gas can occur.? People with irritable bowel syndrome are particularly prone to bloating and mild cramping.? In this instance, soluble fiber in the diet or supplement should be used in small doses and increased gradually. Finally, prebiotic fibers tend to cause the production of short-chain fatty acids which acidify the colon.? This, in turn, reduces or stops the growth of bacteria that make the smelly hydrogen sulfide gases that produce noxious flatus.? People who consume many vegetables with prebiotics or take a prebiotic fiber supplement often have non-odoriferous flatus. Fiber and Irritable Bowel Syndrome Irritable bowel syndrome (IBS) is one of the most common disorders of the lower digestive tract.? The symptoms of IBS can be quite varied.? They can be a mix of several symptoms such as constipation, diarrhea, crampy abdominal discomfort, bloating and gas.? An attack of IBS can be triggered by emotional tension and anxiety, poor dietary habits and certain medications.? It is now known that infections in the intestine can lead to long-term IBS symptoms.? Increased amounts of fiber in the diet can help relieve the symptoms of irritable bowel syndrome by producing soft, bulky stools.? This helps to normalize the time it takes for the stool to pass through the colon.? Recent medical research with n ewer techniques has shown some surprising and dramatic findings for IBS patients.? Specifically, there is a very significant and abnormal shift of bacteria from those that provide health benefits to those bad bacteria that we really do not want in the gut.? The technical name for this bad group of bacteria is called Firmicutes.? Along with this abnormal bacterial collection, there is a smoldering low-grade inflammation in the gut wall that may contribute to symptoms.? The goal for IBS patients should be to gradually increase the soluble dietary fibers in the diet so as to promote the growth of good bacteria and so suppress the bad ones along with the associated inflammation. IBS patients need to be careful of the amount of soluble fiber they consume.? The reason for this is that, while the good colon bacteria thrive on these fibers and produce health benefits, other gas-forming bacteria may generate excessive but harmless gas and subsequent bloating.? Thus, soluble plant fibers or a dietary prebiotic supplement should be taken in small initial doses and then gradually increased to tolerance. Fiber and Colon Polyps/Cancer Colon cancer is a major health problem. This disease is most common in Western cultures. It is not seen very often in rural cultures where the diet is mostly plant based. Usually, colon cancer starts out as a colon polyp, a benign mushroom-shaped growth. In time it grows, and in some people it becomes cancerous. Colon cancer is usually always curable if polyps are removed when fou nd or if surgery is performed at an early stage. It is now known that people can inherit the risk of developing colon cancer, but diet is important, too. As noted, there is a very low rate of colon cancer in residents of countries where grains are unprocessed and retain their fiber. It seems that in the [place] world, cancer-containing agents (carcinogens) remain in contact with the colon wall for a longer time and in higher concentrations. So, a large bulky stool may act to dilute these carcinogens by moving them through the bowel more quickly. Less carcinogenic exposure to the colon may mean fewer colon polyps and less cancer. A very current review of the entire world?s literature on the effect of fiber on colon polyps and cancer prevention has shown rather clearly that for every 10 grams of fiber added to the diet, there is a 10% reduction in incidence of colon cancer. So the recommended 30 gram fiber diet would result in a 30% less chance of getting these tumors. There are also substances produced in the colon by the good bacteria that seem to retard certain pre-cancer factors from developing. They are called short- chain fatty acids (SCFA). See above for description of SCFAs. A high fiber diet increases these substances. So, the combination of dietary fiber and the production of short-chain fatty acids have a clear health benefit. Fiber and Diverticulosis Prolonged, vigorous contraction of the colon over a long period of time may result in diverticulosis.? This increased pressure causes small and, eventually, larger ballooning pockets to form.? These pockets by themselves cause no problem.? However, sometimes they become infected (diverticulitis) or even break open (perforate) causing infection or inflammation within the abdomen (peritonitis).? A high fiber diet increases the bulk in the stool and thereby reduces the pressure within the colon.? By so doing, the formation of pockets may be reduced or possibly even stopped. In the past, many physicians were fearful that seeds as in tomatoes, nuts or berries were harmful and could get inside these pockets and rattle around, causing damage. We now know that this has never been the case and that these foods contain lots of fiber and are actually beneficial for diverticulosis patients. Certain bulking agents such as psyllium are traditional types of bulk producing supplements.? Psyllium is a soluble fiber.? Combining it with insoluble fiber as in wheat bran or corn bran (no gluten) can enhance this bulking effect even more.? A product containing a prebiotic, psyllium and wheat bran is probably a very good combination for bowel regularity. Prebiotin https://www.prebiotin.com/ Regularity/Diverticulosis is one such product. Discharge Orders Discharge Orders: Discharge Order (Routine); Ordered 08/16/20 Ordered By: Jovanna Li DS: Diagnosis Discharge Diagnosis (1) Diverticula of colon: Status: Acute
[2020-08-16 09:10] VITALS: BP 116/80; PULSE 76; RESP 16; TEMP 36.5; O2SAT 95
== END 2020-08-16 09:37 | disposition home or self-care (01) ==
PROVIDERS: PCP Family Medicine; Visit Provider Surgery
PROC: 0DJD8ZZ Inspection of Lower Intestinal Tract, Via Natural or Artificial Opening Endoscopic (ICD-10-PCS; CPT 45378; principal; 2020-08-16 07:30)
DX: K62.5 Hemorrhage of anus and rectum (principal); K57.30 Diverticulosis of large intestine without perforation or abscess without bleeding
CPT/HCPCS: 45378

== ENCOUNTER 2020-09-26 13:02 | Outpatient (REF) | payer MEDICARE, BC, SELFPAY ==
[2020-09-28 14:14] LABS: COVID-19 RT-PCR UVMMC Result Negative (Negative)
== END 2020-09-26 13:03 | disposition home or self-care (01) ==
LOC: LBN 13:02
PROVIDERS: Visit Provider Physician Assistant Medical
DX: Z20.822 Contact with and (suspected) exposure to COVID-19 (principal); R50.9 Fever, unspecified
CPT/HCPCS: U0003

== ENCOUNTER 2021-03-26 15:56 | Outpatient (REF) | payer MEDICARE, BC, SELFPAY ==
[2021-03-26 15:38] LABS: Anion Gap 8.7 mmol/L (3-11); BUN 20 mg/dL (7-18); CO2 28.3 mmol/L (21.0-32.0); Calcium 9.2 mg/dL (8.5-10.1); Calculated LDL 116 mg/dL (<100); Chloride 106 mmol/L (98-107); Cholesterol 188 mg/dL (<200); Glucose 92 mg/dL (74-106); HDL Cholesterol 57 mg/dL (40-60); Potassium 4.1 mmol/L (3.5-5.1); Sodium 143 mmol/L (136-145); Triglyceride 79 mg/dL (<150)
== END 2021-03-26 15:57 | disposition home or self-care (01) ==
LOC: NCHCN 15:56
PROVIDERS: Visit Provider Family Medicine
DX: I10 Essential (primary) hypertension (principal); E78.5 Hyperlipidemia, unspecified
CPT/HCPCS: 80048; 80061

== ENCOUNTER 2023-01-06 12:19 | Outpatient (REF) | payer MEDICARE, BC, SELFPAY ==
[2023-01-06 16:31] LABS: Anion Gap 8.4 mmol/L (3-11); BUN 18 mg/dL (7-18); CO2 26.6 mmol/L (21.0-32.0); Calcium 9.3 mg/dL (8.5-10.1); Calculated LDL 66 mg/dL (<100); Chloride 103 mmol/L (98-107); Cholesterol 138 mg/dL (<200); Estimated GFR 79.97 (mL/min/1.73m2); Glucose 94 mg/dL (74-106); HDL Cholesterol 46 mg/dL (40-60); Potassium 4.3 mmol/L (3.5-5.1); Sodium 138 mmol/L (136-145); TSH (W/Ref FT4) 1.12 uIU/mL (0.36-3.74); Triglyceride 134 mg/dL (<150)
[2023-01-06 17:04] LABS: Hemoglobin A1C 6.1 % (<5.7)
== END 2023-01-06 12:20 | disposition home or self-care (01) ==
LOC: NCHCN 12:19
PROVIDERS: Visit Provider Family Medicine
DX: I10 Essential (primary) hypertension (principal); R73.03 Prediabetes; F41.9 Anxiety disorder, unspecified
CPT/HCPCS: 80048; 80061; 83036; 84443

== ENCOUNTER → 2023-02-03 03:39 | Outpatient (CLI) | payer MEDICARE, BC, SELFPAY ==
--- NOTE | 2023-02-03 | DI.MRI_ITS ---
Exam(s) MR BRAIN WO/W EXAM: MR BRAIN WO/W CLINICAL HISTORY: F/U BRAIN MENINGIOMA,D32.0. TECHNIQUE: Multiplanar multisequence MRI of the brain was performed. CONTRAST MATERIAL: IV Contrast: 20 ML of Dotarem contrast administered. COMPARISON: CT CT HEAD CERVICAL SPINE WO from 11/16/2019 FINDINGS: VENTRICLES AND EXTRA AXIAL SPACES: Normal in size and morphology for the patient's age. HEMORRHAGE: None. CEREBRAL PARENCHYMA: No focus of restricted diffusion to suggest acute infarct. There has been no zeus nge in size or appearance of the previously noted mass abutting the meninges in the left frontal lobe . Previous CT showed significant calcification. There is no significant associated edema. No new m asses identified MIDLINE SHIFT: None. BRAINSTEM/CEREBELLUM: Normal. CALVARIUM: Normal. VISUALIZED PARANASAL SINUSES/MASTOIDS: Mucous retention cysts in the maxillary sinuses. Mucous reten tion in the right sphenoid sinus. IMPRESSION: Stable appearance of left frontal meningioma. No new abnormalities are identified. DATA REPOSITORY:
[2023-02-03] MEDS: Normal Saline Flush 10 ML SYR IVP (14:19)
[2023-02-03] MEDS: Gadoterate meglumine 20 ML SYRINGE IVP (14:20)
== END ==
PROVIDERS: Visit Provider Family Medicine
DX: D32.0 Benign neoplasm of cerebral meninges (principal)
CPT/HCPCS: 70553

== ENCOUNTER 2023-08-07 06:27 | Emergency (ER) | payer MEDICARE, BC, SELFPAY ==
[2023-08-07] VITALS (8 sets, daily range): BP systolic 132–178; BP diastolic 71–87; PULSE 73–87; RESP 12–19; TEMP 36.3; O2SAT 97–100
--- NOTE | 2023-08-07 07:00 | RT.EKG_ITS ---
APPROVED REPORT Exam: Resting ECG Reason for Exam: abodminal pain Patient Location: E HR:84 bpm ECG Measurements Heart Rate 84 AXIS ID 163 P 43 QRSd 159 QRS -59 QT 435 T -11 QTc 506 Conclusion Sinus rhythm. 84 RBBB no stemi
--- NOTE | 2023-08-07 07:12 | ED.GENADUL_ITS ---
Discharge Plan Disposition Patient Disposition: Home Condition: Stable Discharge Details Clinical Impression: Nausea & vomiting Primary Care Provider: Unknown,Unknown ED Provider: Gordon Carrera Home Meds and New Rx's Prescriptions: New famotidine [Pepcid] 40 mg tablet 40 mg PO BID Qty: 60 0RF ondansetron 4 mg tablet,disintegrating 4 mg PO Q8H PRN (Reason: nausea and vomiting) Qty: 20 0RF metoclopramide HCl [Reglan] 5 mg tablet 5 mg PO QAC Qty: 30 0RF Rx Instructions: administer 30 minutes before meals No Action cetirizine 10 mg tablet 10 mg PO DAILY PRN lisinopril-hydrochlorothiazide 20-25 mg tablet 1 tab PO DAILY multivitamin Tablet 1 tab PO DAILY ascorbic acid (vitamin C) [Vitamin C] 500 mg Tablet 500 mg PO DAILY cholecalciferol (vitamin D3) [Vitamin D3] 25 mcg (1,000 unit) Capsule 25 mcg PO DAILY Discharge Instructions Instructions: Acute Nausea and Vomiting (ED) Additional Instructions: take medications as prescribed start clear liquids, bland diet and advance slowly if symptoms not improving please follow up with PCP or return to the ED HPI General Date/Time Provider Initiated Documentation: 08/07/23 06:28 . Limitations to Documentation: no limitations . Information obtained by: patient . HPI Narrative: 73-year-old gentleman without significant past medical history presents for evaluation of vomiting. He reports intermittent episodic vomiting over the last 4 days. He reports that symptoms are associated with burning and significant reflux. He states that he is regurgitating some food. There is no bilious coloration of the vomiting and no blood. There is no associated with fever or abdominal pain. He has no associated diarrhea. No exacerbating or relieving factors. Related Data Home Medications Medication Instructions Recorded Confirmed ascorbic acid (vitamin C) 500 mg 500 mg PO DAILY 11/16/19 08/07/23 tablet (Vitamin C) cetirizine 10 mg tablet 10 mg PO DAILY PRN 11/16/19 08/07/23 cholecalciferol (vitamin D3) 25 25 mcg PO DAILY 11/16/19 08/07/23 mcg (1,000 unit) capsule (Vitamin D3) lisinopril 20 1 tab PO DAILY 11/16/19 08/07/23 mg-hydrochlorothiazide 25 mg tablet multivitamin 1 tab PO DAILY 11/16/19 08/07/23 famotidine 40 mg tablet (Pepcid) 40 mg PO BID #60 tabs 08/07/23 metoclopramide HCl 5 mg tablet 5 mg PO QAC #30 tabs 08/07/23 (Reglan) ondansetron 4 mg disintegrating 4 mg PO Q8H PRN nausea and 08/07/23 tablet vomiting #20 tabs Previous Rx's Medication Instructions Recorded famotidine 40 mg tablet (Pepcid) 40 mg PO BID #60 tabs 08/07/23 metoclopramide HCl 5 mg tablet 5 mg PO QAC #30 tabs 08/07/23 (Reglan) ondansetron 4 mg disintegrating 4 mg PO Q8H PRN nausea and 08/07/23 tablet vomiting #20 tabs Allergies Allergy/AdvReac Type Severity Reaction Status Date / Time No Known Allergies Allergy Unverified 08/07/23 06:37 General Stated Complaint: Abd Prob LOTTIE: 3 Exam Narrative Exam Narrative: Review of Systems: All systems reviewed & are unremarkable except as noted in HPI and below Well-developed, no acute distress NCAT PERRL, normal conjunctiva Moist mucous membranes RRR, no murmur Unlabored respiratory effort, clear bilaterally Nondistended abdomen , soft, nontender Extremities w/o deformity, no cyanosis, no edema No rashes or lesions. no focal neurologic deficits Appropriate mood and affect Course Vital Signs Vital signs: Vital Signs Temperature 36.3 C L 08/07/23 06:31 Pulse 87 08/07/23 06:31 Respiratory Rate 18 08/07/23 06:31 Blood Pressure 178/71 H 08/07/23 06:31 Pulse Oximetry 100 08/07/23 06:31 Temperature 36.3 C L 08/07/23 06:31 Temperature Source Temporal Artery Scan 08/07/23 06:31 Pulse 82 08/07/23 07:01 Pulse 78 08/07/23 07:10 Respiratory Rate 19 08/07/23 07:10 Respiratory Effort Normal 08/07/23 06:34 Blood Pressure 132/86 08/07/23 07:01 Blood Pressure Mean 101 08/07/23 07:01 Pulse Oximetry 98 08/07/23 07:10 Oxygen Delivery Method Room Air 08/07/23 06:31 Oxygen Flow Rate 0 08/07/23 06:31 Pain Level 0 08/07/23 06:31 Medical Decision Making Emergent evaluation of nonbilious, nonbloody vomiting. Initial differential includes reflux, gastritis, viral illness. Low suspicion for obstructive etiology as patient is having bowel movements and abdominal exam is benign. Lab work obtained, mild dehydration noted, no electrolyte derangement. Lipase is normal. Patient was given IV fluids as well as antiemetic. This did improve his symptoms. He reported some hiccups and reflux. I will start him on Pepcid and Reglan. As well as Zofran as needed. Advised that if symptoms or not improving with medications he should return for reevaluation or follow-up with his PCP. Medical Records Medical records reviewed: Yes I reviewed the patient's medical records. Lab Data Lab results reviewed: Yes I reviewed the patient's lab results. Quality:SDOH Health Related Social Needs: No Data to Display PFSH All Active Problems Nausea & vomiting (Acute) Diverticula of colon (Acute) severe. extend over to the transverse colon 08/23 Rectal bleeding (Acute) Impacted cerumen (Acute 12/06/13) Hematoma (Acute 06/18/14) Medical History History of pilonidal cyst Allergic rhinitis Sleep apnea Hyperlipidemia Hypertension Prediabetes Osteoarthritis Dermatitis of ear canal H/O meningioma of the brain Surgical History History of colonoscopy (~08/16/20) Social History Smoking/Tobacco Use Status: Former Tobacco Use Quit Date: 04/05/85 Smoking risk assessment performed?: Yes Alcohol Intake: current Alcohol Intake frequency: a few times a week Drug use: Never Substance use type: does not use Do you feel safe at home: Yes Do you feel safe in your relationship?: Yes PAWSS Have you Been Recently Intoxicated or Drunk Within the Last 30 days?: No Have you Ever Experienced Previous Episodes of Alcohol Withdrawal?: No Have you ever Experienced Withdrawal Seizures?: No Have you ever Experienced Delirium Tremens(DT)s?: No Have you ever undergone Alcohol Rehabilitation Treatment (i.e, inpt ot outpatient treatment programs)?: No Have you ever Experienced Blackouts?: No Have you ever Combined Alcohol with other Downers within the last 90 days?: No Have you ever Combined Alcohol with any other Substance of Abuse during the last 90 days?: No Positive Blood Alcohol level on Presentation? [PCS.BAL]: No Evidence of Increased Autonomic Activity (i.e. HR>120, tremor, sweating, agitation, nausea)?: No Result: 0
[2023-08-07] MEDS: Normal Saline 1,000 ML 1000 ML IV (07:29)
[2023-08-07] MEDS: Ondansetron 4 MG/2 ML VIAL IVP (07:30)
[2023-08-07 07:34] LABS: Abs Immature Grans 0.05 10^3/uL (0.0-0.06); Absolute Eosinophil Count 0.04 10^3/uL (0.0-0.7); Absolute Monocyte Count 0.87 10^3/uL (0.1-0.8); Basophils % 0.3 %; Eosinophils % 0.3 %; HCT 41.1 % (40.0-50.0); HGB 13.4 g/dL (13.5-17.5); Immature Grans % 0.4 %; Lymphocytes % 7.6 %; MCH 28.2 pg (27.0-33.0); MCHC 32.6 % (32.0-36.0); MCV 86 fL (80-95); MPV 9.5 fL (8.0-11.0); Monocytes % 7.4 %; Platelet Count 429 10^3/uL (130-400); RBC 4.76 10^6/uL (4.36-5.78); RDW 15.1 % (11.8-14.1); RDW-SD 47.8 fL; WBC 11.78 10^3/uL (4.4-10.8)
[2023-08-07 07:35] LABS: Absolute Basophil Count 0.04 10^3/uL (0.0-0.2)
[2023-08-07 07:52] LABS: ALT 23 U/L (16-63); AST 16 U/L (15-37); Albumin 3.4 g/dL (3.4-5.0); Alkaline Phosphatase 105 U/L (46-116); Anion Gap 11.6 mmol/L (3-11); BUN 24 mg/dL (7-18); Bilirubin, Total 0.5 mg/dL (0.2-1.0); CO2 28.4 mmol/L (21.0-32.0); CREATININE 1.2 mg/dL (0.70-1.30); Calcium 9.5 mg/dL (8.5-10.1); Chloride 100 mmol/L (98-107); Estimated GFR 63.85 (mL/min/1.73m2); Glucose 182 mg/dL (74-106); Lipase 28 U/L (16-77); Potassium 3.2 mmol/L (3.5-5.1); Sodium 140 mmol/L (136-145); Total Protein 8.4 g/dL (6.4-8.2); Troponin I < 50 ng/L (< or =60)
[2023-08-07] MEDS: Metoclopramide 10 MG TAB PO (08:37)
[2023-08-07 08:58] LABS: Bilirubin Small (Negative); Blood Negative (Negative); Clarity Clear (Clear); Glucose Negative (Negative); Ketones 15 mg/dL (Negative); Leukocyte Esterase Negative (Negative); Nitrite Negative (Negative); Specific Gravity 1.025 (1.005-1.025); pH 6.5 (5-8)
[2023-08-07 09:06] LABS: Bacteria Negative HPF (Negative); C & S Indicated? No; Casts 10-20 Hyaline LPF (Negative); Crystals Negative HPF (Negative); Epithelial Cells Few HPF (Negative); Mucus Moderate (Negative); RBC 0-2 HPF (0-2); WBC 0-2 HPF (0-5)
== END 2023-08-07 09:15 | disposition home or self-care (01) ==
PROVIDERS: Emergency Provider Emergency Medicine
DX: R11.2 Nausea with vomiting, unspecified (principal); I10 Essential (primary) hypertension; E78.5 Hyperlipidemia, unspecified; Z87.891 Personal history of nicotine dependence
CPT/HCPCS: 36415; 80053; 83690; 93005; 96372; 96374; 99284; 81003; 81015; 83735; 84484; 85025; 93010; 99283; J2405

== ENCOUNTER 2023-08-09 05:29 | Inpatient (IN) | payer MEDICARE, BC, SELFPAY ==
[2023-08-09] VITALS (36 sets, daily range): BP systolic 138–191; BP diastolic 69–97; PULSE 51–86; RESP 11–29; TEMP 36.1–36.8; O2SAT 93–100
--- NOTE | 2023-08-09 05:30 | RT.EKG_ITS ---
APPROVED REPORT Exam: Resting ECG Reason for Exam: slow heart rate Patient Location: E HR:82 bpm ECG Measurements Heart Rate 82 AXIS ME 176 P 42 QRSd 150 QRS -69 QT 429 T 16 QTc 499 Conclusion Sinus rhythm...normal P axis, V-rate 60- 99 Ventricular premature complex...V complex w/ short R-R interval RBBB and LAFB...QRSd >120mS, axis(-40,240) Inferior infarct, old...Q >35mS, II III aVF
[2023-08-09 06:17] LABS: Abs Immature Grans 0.06 10^3/uL (0.0-0.06); Absolute Basophil Count 0.04 10^3/uL (0.0-0.2); Absolute Eosinophil Count 0.08 10^3/uL (0.0-0.7); Absolute Lymphocyte Count 1.37 10^3/uL (1.2-3.4); Absolute Monocyte Count 1.14 10^3/uL (0.1-0.8); Absolute Neutrophil Count 7.77 10^3/uL (1.2-6.7); Basophils % 0.4 %; Eosinophils % 0.8 %; HCT 42.5 % (40.0-50.0); HGB 14.2 g/dL (13.5-17.5); Immature Grans % 0.6 %; Lymphocytes % 13.1 %; MCH 28.3 pg (27.0-33.0); MCHC 33.4 % (32.0-36.0); MCV 85 fL (80-95); MPV 9.8 fL (8.0-11.0); Monocytes % 10.9 %; Neutrophils % 74.2 %; Platelet Count 467 10^3/uL (130-400); RBC 5.02 10^6/uL (4.36-5.78); RDW 15.3 % (11.8-14.1); WBC 10.46 10^3/uL (4.4-10.8)
[2023-08-09] MEDS: Ondansetron 4 MG/2 ML VIAL IVP ×4 (06:26→21:26)
[2023-08-09] MEDS: Famotidine 20 MG/2 ML VIAL IVP (06:27)
[2023-08-09] MEDS: Sucralfate 1 GM TAB PO (06:27)
[2023-08-09] MEDS: Normal Saline 1,000 ML 1000 ML IV (06:27)
[2023-08-09] MEDS: Pantoprazole 40 MG VIAL IVP (06:27)
[2023-08-09 06:35] LABS: ALT 131 U/L (16-63); AST 92 U/L (15-37); Albumin 3.7 g/dL (3.4-5.0); Alkaline Phosphatase 127 U/L (46-116); Anion Gap 14.5 mmol/L (3-11); BUN 28 mg/dL (7-18); Bilirubin, Total 1.2 mg/dL (0.2-1.0); CO2 28.5 mmol/L (21.0-32.0); CREATININE 1.3 mg/dL (0.70-1.30); Calcium 9.9 mg/dL (8.5-10.1); Chloride 98 mmol/L (98-107); Estimated GFR 58.01 (mL/min/1.73m2); Glucose 152 mg/dL (74-106); Lipase 60 U/L (16-77); Sodium 141 mmol/L (136-145); Total Protein 8.7 g/dL (6.4-8.2); Troponin I < 50 ng/L (< or =60)
[2023-08-09 06:39] LABS: Potassium 2.8 mmol/L (3.5-5.1)
--- NOTE | 2023-08-09 07:10 | ED.GENADUL_ITS ---
Discharge Plan Disposition Patient Disposition: Admit to [facility] Condition: Fair Discharge Details Chief Complaint: Nausea/Vomit/Diar Clinical Impression: Reflux esophagitis, Nausea with vomiting, Acute hypokalemia Primary Care Provider: Unknown,Unknown ED Provider: Abhishek Rojo Home Meds and New Rx's Prescriptions: No Action cetirizine 10 mg tablet 10 mg PO DAILY PRN lisinopril-hydrochlorothiazide 20-25 mg tablet 1 tab PO DAILY multivitamin Tablet 1 tab PO DAILY ascorbic acid (vitamin C) [Vitamin C] 500 mg Tablet 500 mg PO DAILY cholecalciferol (vitamin D3) [Vitamin D3] 25 mcg (1,000 unit) Capsule 25 mcg PO DAILY famotidine [Pepcid] 40 mg tablet 40 mg PO BID Qty: 60 0RF ondansetron 4 mg tablet,disintegrating 4 mg PO Q8H PRN (Reason: nausea and vomiting) Qty: 20 0RF metoclopramide HCl [Reglan] 5 mg tablet 5 mg PO QAC Qty: 30 0RF Rx Instructions: administer 30 minutes before meals HPI General Date/Time Provider Initiated Documentation: 08/09/23 05:45 . HPI Narrative: The patient is a 73-year-old male, with a past medical history significant for recently acquired viral gastroenteritis, who was seen here in the emergency room on Wednesday for the symptoms and rehydrated and discharged, who returns this morning with ongoing intermittent reflux, nausea, vomiting, and now intractable hiccups. The patient reports that he was improved on Wednesday and did transiently hold down food into different intervals, but he began having reflux symptoms in the evening around bedtime and began having hiccups with nausea and vomiting throughout the course of the night again last night. The patient reports that he has been unable to tolerate anything by mouth, including his medications, since redeveloping the symptoms. He is actively having a sense of reflux right now although have become more periodic now. Related Data Home Medications Medication Instructions Recorded Confirmed ascorbic acid (vitamin C) 500 mg 500 mg PO DAILY 11/16/19 08/09/23 tablet (Vitamin C) cetirizine 10 mg tablet 10 mg PO DAILY PRN 11/16/19 08/09/23 cholecalciferol (vitamin D3) 25 25 mcg PO DAILY 11/16/19 08/09/23 mcg (1,000 unit) capsule (Vitamin D3) lisinopril 20 1 tab PO DAILY 11/16/19 08/09/23 mg-hydrochlorothiazide 25 mg tablet multivitamin 1 tab PO DAILY 11/16/19 08/09/23 famotidine 40 mg tablet (Pepcid) 40 mg PO BID #60 tabs 08/07/23 08/09/23 metoclopramide HCl 5 mg tablet 5 mg PO QAC #30 tabs 08/07/23 08/09/23 (Reglan) ondansetron 4 mg disintegrating 4 mg PO Q8H PRN nausea and 08/07/23 08/09/23 tablet vomiting #20 tabs Previous Rx's Medication Instructions Recorded famotidine 40 mg tablet (Pepcid) 40 mg PO BID #60 tabs 08/07/23 metoclopramide HCl 5 mg tablet 5 mg PO QAC #30 tabs 08/07/23 (Reglan) ondansetron 4 mg disintegrating 4 mg PO Q8H PRN nausea and 08/07/23 tablet vomiting #20 tabs Allergies Allergy/AdvReac Type Severity Reaction Status Date / Time No Known Allergies Allergy Unverified 08/09/23 05:32 General Stated Complaint: Nausea/Vomit/Diar LOTTIE: 3 Exam Const General: cooperative, no acute distress and well groomed Resp Effort & Inspection: normal respiratory effort and able to speak in complete sentences Auscultation: clear to auscultation bilaterally Cardio Rate: regular rate Rhythm: regular rhythm Heart Sounds: S1 normal and S2 normal GI Inspection: normal to inspection Palpation: soft and nontender Auscultation: normal bowel sounds Skin General skin exam: no rashes or lesions noted Lesions: no lesions Neuro General: patient oriented x3, moves all extremities, normal light touch, pain and propioception and CN's II-XI intact bilaterally Cranial Nerves: CN's II-XI intact bilaterally Extrem General: full ROM and no clubbing, cyanosis or edema Right upper extremity: normal to inspection Left upper extremity: normal to inspection Course Vital Signs Vital signs: Vital Signs Temperature 36.3 C L 08/09/23 05:33 Pulse 61 08/09/23 05:33 Respiratory Rate 29 H 08/09/23 05:33 Blood Pressure 191/69 H 08/09/23 05:33 Pulse Oximetry 97 08/09/23 05:33 Temperature 36.3 C L 08/09/23 05:33 Temperature Source Temporal Artery Scan 08/09/23 05:33 Pulse 61 08/09/23 05:33 Respiratory Rate 15 08/09/23 06:05 Respiratory Effort Normal, Non-Labored 08/09/23 05:38 Blood Pressure 191/69 H 08/09/23 05:33 Blood Pressure Position Sitting 08/09/23 05:33 Pulse Oximetry 97 08/09/23 06:05 Oxygen Delivery Method Room Air 08/09/23 05:33 Oxygen Flow Rate 0 08/09/23 05:33 Pain Level 0 08/09/23 05:33 Lab/Test Results Lab/Test Results: Laboratory Tests Range/Units 08/09/23 05:53 WBC (4.4-10.8) 10^3/uL 10.46 RBC (4.36-5.78) 10^6/uL 5.02 Hgb (13.5-17.5) g/dL 14.2 Hct (40.0-50.0) % 42.5 MCV (80-95) fL 85 MCH (27.0-33.0) pg 28.3 MCHC (32.0-36.0) % 33.4 RDW (11.8-14.1) % 15.3 H Plt Count (130-400) 10^3/uL 467 H MPV (8.0-11.0) fL 9.8 Immature Gran % % 0.6 Neutrophils % % 74.2 Lymphocytes % % 13.1 Monocytes % % 10.9 Eosinophils % % 0.8 Basophils % % 0.4 Nucleated RBC % (0.0-0.3) % 0.0 Absolute Neutrophils (1.2-6.7) 10^3/uL 7.77 H Absolute Lymphocytes (1.2-3.4) 10^3/uL 1.37 Absolute Monocytes (0.1-0.8) 10^3/uL 1.14 H Absolute Eosinophils (0.0-0.7) 10^3/uL 0.08 Absolute Basophils (0.0-0.2) 10^3/uL 0.04 Sodium (136-145) mmol/L 141 Potassium (3.5-5.1) mmol/L 2.8 L* Chloride (98-107) mmol/L 98 Carbon Dioxide (21.0-32.0) mmol/L 28.5 Anion Gap (3-11) mmol/L 14.5 H BUN (7-18) mg/dL 28 H Creatinine (0.70-1.30) mg/dL 1.3 Est GFR (CKD-EPI 2020) (mL/min/1.73m2) 58.01 Glucose (74-106) mg/dL 152 H Calcium (8.5-10.1) mg/dL 9.9 Total Bilirubin (0.2-1.0) mg/dL 1.2 H AST (15-37) U/L 92 H ALT (16-63) U/L 131 H Alkaline Phosphatase (46-116) U/L 127 H Troponin I (< or =60) ng/L < 50 Total Protein (6.4-8.2) g/dL 8.7 H Albumin (3.4-5.0) g/dL 3.7 Lipase (16-77) U/L 60 Medical Decision Making The patient was seen and examined. He is relatively hypertensive but tells me that he has been able to tolerate his oral hypertension medications for the last 2 days. The patient has a fair amount of ectopy and his telemetry monitoring, and his comprehensive metabolic profile returned with a significantly low potassium level. Magnesium was added onto determine whether or not he needed concomitant repletion of this electrolyte as well. The patient continues to hav e relatively severe reflux symptoms which were treated here in the emergency room with IV Protonix, IV famotidine, oral viscous lidocaine, oral Carafate, and oral Maalox. The patient was also given some IV Zofran here in the emergency room. I will begin repletion of the patient with 40 mill equivalents of IV potassium through his IV, but he will require admission for electrolyte repletion. The patient is most likely having ectopy related to his hypokalemia and may in fact be having the hiccups related to this as well, although he may simply be having the hiccups related to significant esophageal irritation at the lower esophageal sphincter in the diaphragm. If symptoms do not resolve with more aggressive antiacid medication and IV fluid resuscitation, the patient might benefit from GI evaluation and EGD. I will discuss the case with the hospitalist for admission to the hospital for ongoing management. Quality:SDOH Health Related Social Needs: No Data to Display PFSH All Active Problems (Updated 08/09/23 @ 07:29 by Abhishek Rojo MD) Acute hypokalemia (Acute) Nausea with vomiting (Acute) Reflux esophagitis (Acute) Nausea & vomiting (Acute) Diverticula of colon (Acute) severe. extend over to the transverse colon 08/23 Rectal bleeding (Acute) Impacted cerumen (Acute 12/06/13) Hematoma (Acute 06/18/14) Medical History History of pilonidal cyst Allergic rhinitis Sleep apnea Hyperlipidemia Hypertension Prediabetes Osteoarthritis Dermatitis of ear canal H/O meningioma of the brain Surgical History History of colonoscopy (~08/16/20) Social History Smoking/Tobacco Use Status: Former Tobacco Use Quit Date: 04/05/85 Smoking risk assessment performed?: Yes Alcohol Intake: current Alcohol Intake frequency: a few times a week Drug use: Never Substance use type: does not use Housing: house Do you feel safe at home: Yes Do you feel safe in your relationship?: Yes PAWSS Have you Been Recently Intoxicated or Drunk Within the Last 30 days?: No Have you Ever Experienced Previous Episodes of Alcohol Withdrawal?: No Have you ever Experienced Withdrawal Seizures?: No Have you ever Experienced Delirium Tremens(DT)s?: No Have you ever undergone Alcohol Rehabilitation Treatment (i.e, inpt ot outpatient treatment programs)?: No Have you ever Experienced Blackouts?: No Have you ever Combined Alcohol with other Downers within the last 90 days?: No Have you ever Combined Alcohol with any other Substance of Abuse during the last 90 days?: No Positive Blood Alcohol level on Presentation? [PCS.BAL]: No Evidence of Increased Autonomic Activity (i.e. HR>120, tremor, sweating, agitation, nausea)?: No Result: 0
--- NOTE | 2023-08-09 07:27 | W.PM.HP.N ---
Date of service: 08/09/23 Time of Service: 10:36 Assessment and Plan Assessment and plan (1) Acute hypokalemia: Status: Acute Assessment and plan: - Secondary to poor p.o. intake and intractable nausea and vomiting -Patient was given IV fluid rehydration as well as total of 40 mill equivalents IV potassium while in the emergency department -Will follow-up BMP in the afternoon and give additional IV potassium replacement as needed (2) Nausea with vomiting: Status: Acute Assessment and plan: - Likely due to combination of reflux, initial inciting event of possible viral gastritis, now exacerbated and feeding into feedback loop of nausea vomiting, and hiccups -Zofran intermittently helps with nausea and vomiting but is not improving hiccups -Therefore, patient has been started on 1 mg as needed every 4 hours IV Ativan with first dose to be given now in order to get had additional episodes of hiccups, and to hopefully quell hiccup episodes long enough to allow for stomach to heal and irritation to improve -Patient n.p.o. at this time and will advance diet once nausea vomiting and hiccups have improved (3) Reflux esophagitis: Status: Acute Assessment and plan: - Continue Protonix (4) Hypertension: Status: Chronic Assessment and plan: - Hold home p.o. lisinopril/HCTZ at this time -Will give IV antihypertensive while patient is n.p.o. if needed History of Present Illness History of Present Illness Chief Complaint: nausea, vomiting Narrative: 73-year-old male with past medical history of hypertension who had recently been to the emergency department for intractable nausea and vomiting and was discharged home after improvement with Zofran and returns to the emergency department with intractable nausea and vomiting and hiccups. Patient states that after being discharged from the emergency department he did have significant improvement of his symptoms. However, shortly after he began to have frequent episodes of hiccups that exacerbated his nausea and vomiting led to him not being able to tolerate any p.o. intake. He denies any blood in his vomit, fever, lightheadedness, dizziness, diarrhea or constipation. In the emergency department patient had normal physical exam, normal vital signs and a CBC, he did however have significant hypokalemia with a potassium of 2.8. While in the emergency department he was given IV fluid rehydration as well as total of 40 mEq of IV potassium. He was given IV Protonix as well as Zofran but did not have resolution of his symptoms. At which time emergency room physician paged hospitalist for admission for patient with intractable nausea and vomiting and hiccups resulting in inability to tolerate p.o. intake and hypokalemia. Review of Systems All systems reviewed & are unremarkable except as noted in HPI and below PFSH All Active Problems (Updated 08/09/23 @ 10:39 by Kirit Vieira MD) Hypertension (Chronic) Acute hypokalemia (Acute) Nausea with vomiting (Acute) Reflux esophagitis (Acute) Nausea & vomiting (Acute) Diverticula of colon (Acute) severe. extend over to the transverse colon 08/23 Rectal bleeding (Acute) Impacted cerumen (Acute 12/06/13) Hematoma (Acute 06/18/14) Medical History History of pilonidal cyst Allergic rhinitis Sleep apnea Hyperlipidemia Hypertension Prediabetes Osteoarthritis Dermatitis of ear canal H/O meningioma of the brain Surgical History History of colonoscopy (~08/16/20) Social History Smoking/Tobacco Use Status: Former Tobacco Use Quit Date: 04/05/85 Smoking risk assessment performed?: Yes Alcohol Intake: current Alcohol Intake frequency: a few times a week Drug use: Never Substance use type: does not use Housing: house Do you feel safe at home: Yes Do you feel safe in your relationship?: Yes Meds Allergies and Home Medications Allergies Allergy/AdvReac Type Severity Reaction Status Date / Time No Known Allergies Allergy Unverified 08/09/23 05:32 Home Medications Medication Instructions Recorded Confirmed Type ascorbic acid (vitamin C) 500 mg 500 mg PO DAILY 11/16/19 08/09/23 History tablet (Vitamin C) cetirizine 10 mg tablet 10 mg PO DAILY PRN 11/16/19 08/09/23 History cholecalciferol (vitamin D3) 25 25 mcg PO DAILY 11/16/19 08/09/23 History mcg (1,000 unit) capsule (Vitamin D3) lisinopril 20 1 tab PO DAILY 11/16/19 08/09/23 History mg-hydrochlorothiazide 25 mg tablet multivitamin 1 tab PO DAILY 11/16/19 08/09/23 History famotidine 40 mg tablet (Pepcid) 40 mg PO BID #60 tabs 08/07/23 08/09/23 Rx metoclopramide HCl 5 mg tablet 5 mg PO QAC #30 tabs 08/07/23 08/09/23 Rx (Reglan) ondansetron 4 mg disintegrating 4 mg PO Q8H PRN nausea and 08/07/23 08/09/23 Rx tablet vomiting #20 tabs Exam Narrative Exam Narrative: Well-appearing older gentleman laying in bed in no acute distress, ANO x 4, heart regular rhythm, lungs clear to auscultation bilaterally, abdomen with moderate epigastric tenderness to palpation without guarding or rebound Results Labs 08/09/23 05:53 08/09/23 05:53 Labs: Laboratory Results - last 24 hr 08/09/23 05:53 WBC 10.46 RBC 5.02 Hgb 14.2 Hct 42.5 MCV 85 MCH 28.3 MCHC 33.4 RDW 15.3 H Plt Count 467 H MPV 9.8 Immature Gran % 0.6 Neutrophils % 74.2 Lymphocytes % 13.1 Monocytes % 10.9 Eosinophils % 0.8 Basophils % 0.4 Nucleated RBC % 0.0 Absolute Neutrophils 7.77 H Absolute Lymphocytes 1.37 Absolute Monocytes 1.14 H Absolute Eosinophils 0.08 Absolute Basophils 0.04 Sodium 141 Potassium 2.8 L* Chloride 98 Carbon Dioxide 28.5 Anion Gap 14.5 H BUN 28 H Creatinine 1.3 Est GFR (CKD-EPI 2020) 58.01 Glucose 152 H Calcium 9.9 Total Bilirubin 1.2 H AST 92 H ALT 131 H Alkaline Phosphatase 127 H Troponin I < 50 Total Protein 8.7 H Albumin 3.7 Lipase 60 Last Vital Signs Temp 97.3 F L 08/09/23 05:33 Pulse 61 08/09/23 05:33 Resp 15 08/09/23 06:05 BP 191/69 H 08/09/23 05:33 Pulse Ox 97 08/09/23 06:05 PAWSS Have you Been Recently Intoxicated or Drunk Within the Last 30 days?: No Have you Ever Experienced Previous Episodes of Alcohol Withdrawal?: No Have you ever Experienced Withdrawal Seizures?: No Have you ever Experienced Delirium Tremens(DT)s?: No Have you ever undergone Alcohol Rehabilitation Treatment (i.e, inpt ot outpatient treatment programs)?: No Have you ever Experienced Blackouts?: No Have you ever Combined Alcohol with other Downers within the last 90 days?: No Have you ever Combined Alcohol with any other Substance of Abuse during the last 90 days?: No Positive Blood Alcohol level on Presentation? [PCS.BAL]: No Evidence of Increased Autonomic Activity (i.e. HR>120, tremor, sweating, agitation, nausea)?: No Result: 0 Time Spent Time spent with Patient: >75 minutes Time was spent: preparing to see the patient(eg.review tests), obtaining and/or reviewing separately otained hiistory, ordering medications,tests, procedures, referring, communicating with other health acute care physical therapist, indepentently interpreting results, counseling the patient and care coordination
[2023-08-09] MEDS: POTASSIUM CHLORIDE/D5-0.9%NACL 1,000 ML 150 MEQ IV ×3 (07:31→21:26)
[2023-08-09 07:47] LABS: Magnesium 2.2 mg/dL (1.8-2.4)
[2023-08-09] MEDS: Enoxaparin 40 MG/0.4 ML SYR SC (09:59)
[2023-08-09] MEDS: Normal Saline Flush 10 ML SYR IVP ×5 (10:46→18:51)
[2023-08-09] MEDS: LORazepam 2 MG/ML VIAL 1 MG IVP ×3 (10:46→18:50)
--- NOTE | 2023-08-09 13:44 | PHA.REVIEW2 ---
Pharmacy Admission Review Admission Clinical Review Admission Pharmacy Review: Acute hypokalemia (Acute) Nausea with vomiting (Acute) Reflux esophagitis (Acute) No Known Allergies Allergy (Unverified 08/09/23 05:32) Resuscitation Status Full Code Height 6 ft 3 in Weight 94.801 kg Pharmacy Admission Review Renal Dosing Renal Dosing: BUN 28 mg/dL (7-18) H 08/09/23 05:53 Creatinine 1.3 mg/dL (0.70-1.30) 08/09/23 05:53 Medications needing adjustments: Reviewed (CrCl 67.86 mL/min) List of meds needing interventions: Current medications are okay Anticoagulation Anticoagulation: Hgb 14.2 g/dL (13.5-17.5) 08/09/23 05:53 Hct 42.5 % (40.0-50.0) 08/09/23 05:53 Plt Count 467 10^3/uL (130-400) H 08/09/23 05:53 Creatinine 1.3 mg/dL (0.70-1.30) 08/09/23 05:53 DVT Prophylaxis: Reviewed Medications: Enoxaparin (40mg daily) Relevant Labs Relevant Labs: Sodium 141 mmol/L (136-145) 08/09/23 05:53 Potassium 2.8 mmol/L (3.5-5.1) L* 08/09/23 05:53 Chloride 98 mmol/L (98-107) 08/09/23 05:53 Magnesium 2.2 mg/dL (1.8-2.4) 08/09/23 05:53 Electrolytes, C-Reactive P, ESR: Reviewed (K 2.8 - repleting with potassium infusion, AST/ALT 92/131, glucose 152) Cardiac Review Cardiac Review: Troponin I < 50 ng/L (< or =60) 08/09/23 05:53 Blood Pressure 157/97 1119 Blood Pressure 148/79 0832 Blood Pressure 148/77 0831 Blood Pressure 171/81 0721 Blood Pressure 162/83 0710 Blood Pressure 191/69 0533 BP, HR, EF%: Reviewed (BP 157/97, HR WNL) QTc Review QTc: Reviewed (506 from 08/07/23) IV to PO Switch IV Medications: Reviewed (NPO) Home Meds Home Med List reviewed: Reviewed Relevent Home Meds Not ordered & why?: None ordered at this time as patient is NPO. Spoke with provider who will put in orders when patients oral intake improves Current Meds Current Medication Order Review: Reviewed
[2023-08-09 14:16] LABS: Anion Gap 8.7 mmol/L (3-11); BUN 26 mg/dL (7-18); CO2 30.3 mmol/L (21.0-32.0); CREATININE 1.1 mg/dL (0.70-1.30); Chloride 104 mmol/L (98-107); Estimated GFR 70.88 (mL/min/1.73m2); Glucose 156 mg/dL (74-106); Potassium 3.3 mmol/L (3.5-5.1); Sodium 143 mmol/L (136-145)
[2023-08-09] MEDS: chlorproMAZINE 25 MG/ML AMP IM (22:07)
[2023-08-10] VITALS (91 sets, daily range): BP systolic 103–171; BP diastolic 64–105; PULSE 48–115; RESP 16–31; TEMP 36.4–37.4; O2SAT 86–99; BMI 25.4
--- NOTE | 2023-08-10 | DI.CT_ITS ---
Exam(s) CT CHEST/ABD/PEL WO EXAM: CT CHEST/ABD/PEL WO CLINICAL HISTORY: Intractable nausea/vomiting TECHNIQUE: Imaging Protocol: Axial computed tomography images with coronal and sagittal reformatted images were created and reviewed COMPARISON: CT CT CHEST WO from 11/16/2019 FINDINGS: CHEST: Tracheobronchial tree: Patent where visualized. Pulmonary parenchyma: There are linear infiltrate seen in the dependent portions of the lungs which m ay represent atelectasis. Pneumonia cannot be entirely excluded. No focal consolidating infiltrates are seen. No architectural distortion. Mediastinum and Judie: No dominant adenopathy or fluid collection. The esophagus is fluid-filled and t here is a question of wall thickening present. Thyroid gland: There is a 1 cm hypodense nodule in the posterior aspect of the left lobe of the thyro id gland. Nonemergent thyroid ultrasound may be obtained. (Series 5, image 38). Pleura: No effusion or pneumothorax. Heart: The heart is not dilated. Coronary artery calcification is present. No pericardial effusion. Aorta: Thoracic aorta non-dilated. Lymph nodes: Within normal limits. Bones:Within normal limits for the patient's age. Soft tissues: Mild gynecomastia. ABDOMEN: Liver: Normal density. There is a tiny hypodensity seen in the liver which is stable. No suspicious hepatic lesions are identified. Gallbladder and Biliary Tract: There is cholelithiasis. There is air seen within the gallbladder. T here also appears to be gallbladder wall thickening and pericholecystic fluid. No biliary ductal dil atation is present. Pancreas: Normal density, no abnormal calcifications or inflammatory process. Spleen: Normal. Adrenals: No masses seen. Kidneys: Normal size, contour and axis. 2 mm nonobstructing stone in the lower pole of the left kidne y. There is a cyst in the inferior pole of the right kidney. No follow-up is recommended. Abdominal Aorta: Abdominal portion non-dilated. Mild atherosclerotic calcification is present. Bowel: There is diverticulosis seen in the colon. There is mild bowel wall thickening seen in the he patic flexure adjacent to the gallbladder. There is also mild bowel wall thickening seen in the dist al stomach. The stomach is distended as is the proximal small bowel. There is a partially calcified masslike area in the small bowel in the left upper quadrant. This appears to be at the transition p oint and causing obstruction. This measures 4.7 cm x 4 cm. (Series 5, image 926). Appendix is unre markable. Peritoneal Cavity: No ascites, collection or mesenteric inflammatory response. No free air. Lymph Nodes: Within normal limits. Bones: Within normal limits for the patient's age. There is a well corticated cystic lesion in the l eft ilium. No periosteal reaction or cortical destruction is seen. Soft Tissues: Unremarkable. PELVIS: Bladder: Symmetric distention, no gross wall thickening. Reproductive Organs: There is an enlarged prostate gland. Lymph Nodes: Within normal limits. Bones: Within normal limits for the patient's age. IMPRESSION: 1. No acute pulmonary process. Bilateral basilar atelectasis. 2. Left thyroid nodule. Nonemergent thyroid ultrasound should be obtained for further evaluation. 3. Intraluminal 4.7 x 4 cm calcified mass in the proximal small bowel. Differential considerations s hould include small bowel neoplasm or possible gallstone. There is resultant small bowel obstruction . 4. Cholelithiasis. There is a question of air seen within the gallbladder. There is gallbladder wal l thickening and pericholecystic fluid suggesting acute cholecystitis. There is no biliary ductal di latation. 5. Colonic diverticulosis without evidence of acute diverticulitis. 6. Mild wall thickening seen in the hepatic flexure of the colon and the adjacent distal stomach whic h may be secondary colitis/gastritis due to the adjacent gallbladder inflammation. RADIATION DOSE DELIVERED: 1,496.38mGy.cm Total DLP 1,496.38mGy.cm Total DLP DATA REPOSITORY: All CT scans at this facility are submitted to the National Radiology Data Registry (NRDR) Dose Index Registry (DIR) with the [employer] ([employer]). RADIATION OPTIMIZATION: All CT scans at this facility use at least one of these dose optimization te chniques: automated exposure control; mA and/or kV adjustment per patient size (includes targeted exa ms where dose is matched to clinical indication); or iterative reconstruction.
--- NOTE | 2023-08-10 | DI.CT_ITS ---
Exam(s) CT ABDOMEN PELVIS WO EXAM: CT ABDOMEN PELVIS WO CLINICAL HISTORY: gallstone ileus. TECHNIQUE: Imaging Protocol: Axial computed tomography images with coronal and sagittal reformatted images were created and reviewed. COMPARISON: CT CT CHEST/ABD/PEL WO from 08/10/2023 FINDINGS: The examination is limited due to patient motion artifact. ABDOMEN: Lung Bases: There is fluid seen in the distal esophagus. Dependent atelectatic changes are seen in t he lung bases. Liver: Normal density. The tiny hypodensity in the right lobe of the liver is stable and likely refle cts a small cyst. Gallbladder and biliary tract: There is again seen cholelithiasis and air within the gallbladder. Ga llbladder wall thickening and pericholecystic fluid is present. There is no biliary ductal dilatatio n. Pancreas: Normal density, no abnormal calcifications or inflammatory process. Spleen: Normal. Kidneys: No change since the prior examination from the day before. Adrenal glands: No mass is seen. Lymph nodes: Within normal limits. Abdominal Aorta: Abdominal portion non-dilated. PELVIS: Bladder:Symmetric distention, no gross wall thickening. Bowel: The stomach remains significantly distended with fluid. There is also dilatation of the proxi mal small bowel to the level of the 5.3 cm partially calcified intraluminal mass. This likely reflec ts a gallstone. The findings are suspicious for gallstone ileus. The remainder of the bowel shows n o evidence of obstruction or bowel wall thickening. There is diverticulosis of the colon without derick dence of acute diverticulitis. There is a normal appendix present. Peritoneal cavity: No ascites, collection or mesenteric inflammatory response. No free air. Reproductive organs: Enlarged prostate gland. Bones: No change compared to 08/10/2023. Soft Tissues: Within normal limits. IMPRESSION: 1. Findings most suspicious for gallstone ileus with a 5.3 cm stone in the proximal small bowel with resultant obstruction. 2. Cholelithiasis with findings of acute cholecystitis. Air is seen within the gallbladder. 3. Findings were discussed with Dr. Li on 08/10/2023. 4. Bilateral basilar infiltrates in the lungs which may represent atelectasis or pneumonia. Please c orrelate clinically. RADIATION DOSE DELIVERED: 1,206.42mGy.cm Total DLP DATA REPOSITORY: All CT scans at this facility are submitted to the National Radiology Data Registry (NRDR) Dose Index Registry (DIR) with the [employer] (ACR). RADIATION OPTIMIZATION: All CT scans at this facility use at least one of these dose optimization te chniques: automated exposure control; mA and/or kV adjustment per patient size (includes targeted exa ms where dose is matched to clinical indication); or iterative reconstruction.
[2023-08-10] MEDS: Ondansetron 4 MG/2 ML VIAL IVP (02:18)
[2023-08-10] MEDS: Normal Saline Flush 10 ML SYR IVP ×3 (02:19→19:55)
[2023-08-10] MEDS: chlorproMAZINE 25 MG/ML AMP IM (03:02)
[2023-08-10] MEDS: LORazepam 2 MG/ML VIAL 1 MG IVP ×3 (03:04→13:55)
[2023-08-10 04:02] LABS: HGB 13.8 g/dL (13.5-17.5); MCH 28.1 pg (27.0-33.0); MCHC 32.1 % (32.0-36.0); MCV 88 fL (80-95); MPV 9.6 fL (8.0-11.0); Platelet Count 391 10^3/uL (130-400); RBC 4.91 10^6/uL (4.36-5.78); RDW 15.2 % (11.8-14.1); RDW-SD 49.3 fL; WBC 17.18 10^3/uL (4.4-10.8)
[2023-08-10 04:18] LABS: Anion Gap 15.4 mmol/L (3-11); BUN 30 mg/dL (7-18); CO2 23.6 mmol/L (21.0-32.0); CREATININE 1.1 mg/dL (0.70-1.30); Chloride 108 mmol/L (98-107); Estimated GFR 70.88 (mL/min/1.73m2); Glucose 175 mg/dL (74-106); Magnesium 2.3 mg/dL (1.8-2.4); Potassium 3.7 mmol/L (3.5-5.1); Sodium 147 mmol/L (136-145)
[2023-08-10] MEDS: Metoprolol 5 MG/5 ML VIAL IVP (04:43)
--- NOTE | 2023-08-10 05:23 | DI.VRAD_ITS ---
PROCEDURE INFORMATION: Exam: CT Chest Without Contrast; Diagnostic Exam date and time: 08/10/2023 3:21 AM Age: 73 years old Clinical indication: Nausea and vomiting; Patient HX: Intractable nausea/vomiting TECHNIQUE: Imaging protocol: Diagnostic computed tomography of the chest without contrast. Radiation optimization: All CT scans at this facility use at least one of these dose optimization techniques: automated exposure control; mA and/or kV adjustment per patient size (includes targeted exams where dose is matched to clinical indication); or iterative reconstruction. COMPARISON: No relevant prior studies available. FINDINGS: Lungs: Bibasilar atelectasis. Pleural spaces: No pleural effusion or pneumothorax. Heart: Unremarkable. No cardiomegaly. No pericardial effusion. Lymph nodes: Unremarkable. No enlarged lymph nodes. Vasculature: Unremarkable. No aortic aneurysm. Bones/joints: No acute fracture. Soft tissues: Unremarkable. IMPRESSION: No acute findings. PROCEDURE INFORMATION: Exam: CT Abdomen And Pelvis Without Contrast Exam date and time: 08/10/2023 3:21 AM Age: 73 years old Clinical indication: Nausea and vomiting; Patient HX: Intractable nausea/vomiting TECHNIQUE: Imaging protocol: Computed tomography of the abdomen and pelvis without contrast. Radiation optimization: All CT scans at this facility use at least one of these dose optimization techniques: automated exposure control; mA and/or kV adjustment per patient size (includes targeted exams where dose is matched to clinical indication); or iterative reconstruction. COMPARISON: No relevant prior studies available. FINDINGS: Liver: Hypoattenuating focus in the right lobe of the liver which is too small to characterize. Gallbladder and bile ducts: Cholelithiasis. No biliary ductal dilatation or pneumobilia. Pancreas: Normal. No ductal dilation. Spleen: Normal. No splenomegaly. Adrenal glands: Normal. No mass. Kidneys and ureters: Normal. No hydronephrosis. Stomach and bowel: Distended stomach and distended proximal small bowel loops measuring up to 3.2 cm. Apparent transition zone in the left lower quadrant where there is a partially calcified and gas-containing structure measuring 5 cm suggestive of a large gallstone. There is colonic diverticulosis without diverticulitis. Appendix: Normal appendix. Intraperitoneal space: Unremarkable. No free air. No significant fluid collection. Vasculature: Unremarkable. No abdominal aortic aneurysm. Lymph nodes: Unremarkable. No enlarged lymph nodes. Urinary bladder: Unremarkable as visualized. Reproductive: Unremarkable as visualized. Bones/joints: Degenerative changes of the lumbar spine. No fracture. Soft tissues: Unremarkable. IMPRESSION: Small bowel ileus or obstruction secondary to a calcified structure in a distal bowel loop which may represent a large gallstone (gallstone ileus). Surgical consultation recommended. This report contains findings that may be critical to patient care. The findings were verbally communicated via telephone conference with Kirit Montgomery at 5:21 AM EDT on 08/10/2023. The findings were acknowledged and understood. Dictated and Authenticated by: Randolph Paulino MD. Ordering:ARACELI Beth MD
[2023-08-10] MEDS: POTASSIUM CHLORIDE/D5-0.9%NACL 1,000 ML 150 MEQ IV ×2 (06:30→13:55)
--- NOTE | 2023-08-10 09:31 | PDOC.CMIN ---
Date of service: 08/10/23 Time of Service: 09:31 Care Management Initial Assmt Initial Assessment REASON FOR HOSPITALIZATION:: Intractable nausea, vomiting, hypokalemia PREVIOUS FUNCTIONAL STATUS/SOCIAL/FAMILY SUPPORTS:: Resides in [facility]. CURRENT FUNCTIONAL STATUS:: Up independently per documentation, Ananth was sleeping when CM attempted to see him, will continue to follow. Ananth will be brought to the OR today, and admit to ICU post surgically. CM continues to follow. ADVANCE DIRECTIVES:: Reports document is at home-not on file at [facility]. Has patient been provided with info about the portal/API?: Yes Did the patient sign up for the portal?: No CODE STATUS:: Full Code INSURANCE COVERAGE / FINANCIAL ISSUES:: Medicare, BC/BS, ACO Attributed CURRENT HOME/COMMUNITY SERVICES/EQUIPMENT:: [employer] PRIMARY CARE PHYSICIAN:: Unknown POTENTIAL DISCHARGE NEEDS:: PCP T-Doc offer for follow up PATIENT/FAMILY EDUCATION NEEDS:: Review discharge instructions, discuss Ask Me Three ANTICIPATED BARRIERS TO DISCHARGE:: None identified. TRANSPORTATION:: Via private vehicle. PLAN:: Anticipate Ananth will return home when ready per MD. He will follow up with his PCP and plan of care as prescribed. Further evaluation anticipated post surgically. CM continues to follow. PFSH All Active Problems Tachycardia, paroxysmal (Acute) Gallstone ileus of small intestine (Acute) Hypertension (Chronic) Acute hypokalemia (Acute) Nausea with vomiting (Acute) Reflux esophagitis (Acute) Nausea & vomiting (Acute) Diverticula of colon (Acute) severe. extend over to the transverse colon 08/23 Rectal bleeding (Acute) Impacted cerumen (Acute 12/06/13) Hematoma (Acute 06/18/14) Medical History History of pilonidal cyst Allergic rhinitis Sleep apnea Hyperlipidemia Prediabetes Osteoarthritis Dermatitis of ear canal H/O meningioma of the brain Surgical History (Updated 08/10/23 @ 16:05 by Jovanna Li DO) History of nasal surgery History of colonoscopy (~08/16/20) Social History Smoking/Tobacco Use Status: Former Tobacco Use Quit Date: 04/05/85 Smoking risk assessment performed?: Yes Alcohol Intake: current Alcohol Intake frequency: a few times a week Drug use: Never Substance use type: does not use Housing: house Do you feel safe at home: Yes Do you feel safe in your relationship?: Yes SDOH(Care Management) Screening Will the Patient Participate in the Screening?: Declined to provide Do you worry about having a steady place to live?: no In the past 12 months, have you had to go without electric, gas, oil or water in your home?: no Have you or anyone in your house had to go without enough food to eat?: no Has lack of transportation kept you from medical appointments or from doing things needed for daily living?: no Has anyone in your support network made you feel unsafe for any reason?: no
--- NOTE | 2023-08-10 11:20 | DI.RAD_ITS ---
Exam(s) XR ABDOMEN FLAT UPRIGHT EXAM: 2D digital imaging was performed. CLINICAL HISTORY: gallstone obstruction. COMPARISON: CT CT CHEST/ABD/PEL WO from 08/10/2023 TECHNIQUE: Supine and upright views of the abdomen was performed. Five images were obtained. FINDINGS: LUNG BASES: Clear. BOWEL GAS PATTERN: The stomach appears to be status tended and fluid-filled. The small bowel is of n ormal caliber as is the colon. There is a moderate amount of stool throughout the colon. FREE AIR: None. CALCIFICATIONS: Calcifications are seen in the pelvis consistent with phleboliths. OSSEOUS STRUCTURES: Normal for age. OTHER FINDINGS: None. IMPRESSION: The stomach remains distended and fluid-filled. The small bowel and colon are of normal caliber. Th e calcified lesion seen in the bowel on the CT scan from earlier in the day is not well visualized on the current examination. DATA REPOSITORY: RADIATION DOSE DELIVERED:
--- NOTE | 2023-08-10 12:57 | W.PM.PROGNOT ---
Date of Service Date of service: 08/10/23 Time of Service: 12:57 Assessment and Plan Assessment and plan (1) Gallstone ileus of small intestine: Status: Acute Assessment and plan: -CT c/w cholecystitis and large gallstone vs mass in the small bowel causing SBO. -Management likely surgical, expect consult after cases done this afternoon (2) Acute hypokalemia: Status: Acute Assessment and plan: -Secondary to poor p.o. intake and intractable nausea and vomiting -Patient was given IV fluid rehydration as well as total of 40 mill equivalents IV potassium while in the emergency department -Will follow-up BMP in the afternoon and give additional IV potassium replacement as needed (3) Nausea with vomiting: Status: Acute Assessment and plan: -Zofran intermittently helps with nausea and vomiting but is not improving hiccups, started on lorazepam -Patient n.p.o. at this time. He may need NGT but defer to surgery as he is not highly distended (4) Reflux esophagitis: Status: Acute Assessment and plan: - Continue Protonix (5) Hypertension: Status: Chronic Assessment and plan: - Holding home p.o. lisinopril/HCTZ at this time - Will give IV antihypertensive while patient is n.p.o. if needed (6) Tachycardia, paroxysmal: Status: Acute Assessment and plan: episode of tachycardia on telemetry. Wide complex but this is related to baseline RBBB. Some irregular beats but not completely irregular. I'm not sure if this is afib. He does not have this diagnosis so will ask for cardiology input. Subjective Subjective Patient reports: denies voiding w/o difficulty, bowel movement or shortness of breath Interval history since last seen: Still nauseous. No appetite. Hiccups uncomfortable. His breath smells horrible after vomiting, yellow/green vomit. Still not having abdominal pain. No chest pain, dizziness, or palpitations. Exam Narrative Exam Narrative: Laying in bed in no acute distress, sleepy since getting lorazepam, but arousable and appropriately responsive to questions. heart regular rhythm with skipped beats. lungs clear to auscultation bilaterally abdomen with hypoactive BS, soft with mild distension and mild epigastric tenderness to palpation without guarding or rebound ext: non tender, no edema Objective Last Vital Signs Temp 36.4 C L 08/10/23 11:31 Pulse 90 08/10/23 11:31 Resp 18 08/10/23 11:31 BP 134/77 08/10/23 11:31 Pulse Ox 95 08/10/23 11:31 Laboratory Results - last 24 hr 08/09/23 08/10/23 13:57 03:47 WBC 17.18 H RBC 4.91 Hgb 13.8 Hct 43.0 MCV 88 MCH 28.1 MCHC 32.1 RDW 15.2 H Plt Count 391 MPV 9.6 Sodium 143 147 H Potassium 3.3 L 3.7 Chloride 104 108 H Carbon Dioxide 30.3 23.6 Anion Gap 8.7 15.4 H BUN 26 H 30 H Creatinine 1.1 1.1 Est GFR (CKD-EPI 2020) 70.88 70.88 Glucose 156 H 175 H Calcium 9.0 9.0 Magnesium 2.3 Objective Narrative Objective Narrative: CT C/A/P: 1. No acute pulmonary process. Bilateral basilar atelectasis. 2. Left thyroid nodule. Nonemergent thyroid ultrasound should be obtained for further evaluation. 3. Intraluminal 4.7 x 4 cm calcified mass in the proximal small bowel. Differential considerations should include small bowel neoplasm or possible gallstone. There is resultant small bowel obstruction. 4. Cholelithiasis. There is a question of air seen within the gallbladder. There is gallbladder wall thickening and pericholecystic fluid suggesting acute cholecystitis. There is no biliary ductal dilatation. 5. Colonic diverticulosis without evidence of acute diverticulitis. 6. Mild wall thickening seen in the hepatic flexure of the colon and the adjacent distal stomach which may be secondary colitis/gastritis due to the adjacent gallbladder inflammation. PAWSS Have you Been Recently Intoxicated or Drunk Within the Last 30 days?: No Have you Ever Experienced Previous Episodes of Alcohol Withdrawal?: No Have you ever Experienced Withdrawal Seizures?: No Have you ever Experienced Delirium Tremens(DT)s?: No Have you ever undergone Alcohol Rehabilitation Treatment (i.e, inpt ot outpatient treatment programs)?: No Have you ever Experienced Blackouts?: No Have you ever Combined Alcohol with other Downers within the last 90 days?: No Have you ever Combined Alcohol with any other Substance of Abuse during the last 90 days?: No Positive Blood Alcohol level on Presentation? [PCS.BAL]: No Evidence of Increased Autonomic Activity (i.e. HR>120, tremor, sweating, agitation, nausea)?: No Result: 0 Time Spent with Patient Time Spent with Patient: 35-49 minutes Time was spent: preparing to see the patient(eg.review tests), obtaining and/or reviewing separately otained hiistory, ordering medications,tests, procedures, referring, communicating with other health child care specialist, indepentently interpreting results and counseling the patient
--- NOTE | 2023-08-10 14:49 | W.CARDCONSUL ---
Date of service: 08/10/23 Time of Service: 14:50 History of Present Illness Narrative: Cardiac evaluation was requested to address dysrhythmia which occurred overnight I reviewed the strips. Basic rhythm was sinus to sinus tachycardia, frequent atrial premature beats, runs of PACs and a lot of artifact. I do not think any of this represented ventricular tachycardia nor did suggest paroxysmal atrial fibrillation. PFSH All Active Problems (Updated 08/10/23 @ 13:16 by Олег Haque) Tachycardia, paroxysmal (Acute) Gallstone ileus of small intestine (Acute) Hypertension (Chronic) Acute hypokalemia (Acute) Nausea with vomiting (Acute) Reflux esophagitis (Acute) Nausea & vomiting (Acute) Diverticula of colon (Acute) severe. extend over to the transverse colon 08/23 Rectal bleeding (Acute) Impacted cerumen (Acute 12/06/13) Hematoma (Acute 06/18/14) Medical History History of pilonidal cyst Allergic rhinitis Sleep apnea Hyperlipidemia Hypertension Prediabetes Osteoarthritis Dermatitis of ear canal H/O meningioma of the brain Surgical History History of colonoscopy (~08/16/20) Social History Smoking/Tobacco Use Status: Former Tobacco Use Quit Date: 04/05/85 Smoking risk assessment performed?: Yes Alcohol Intake: current Alcohol Intake frequency: a few times a week Drug use: Never Substance use type: does not use Housing: house Do you feel safe at home: Yes Do you feel safe in your relationship?: Yes Results Last Vital Signs Temp 36.4 C L 08/10/23 11:31 Pulse 90 08/10/23 11:31 Resp 18 08/10/23 11:31 BP 134/77 08/10/23 11:31 Pulse Ox 95 08/10/23 11:31 Labs 08/10/23 03:47 08/10/23 03:47 Labs: Laboratory Results - last 24 hr 08/10/23 03:47 WBC 17.18 H RBC 4.91 Hgb 13.8 Hct 43.0 MCV 88 MCH 28.1 MCHC 32.1 RDW 15.2 H Plt Count 391 MPV 9.6 Sodium 147 H Potassium 3.7 Chloride 108 H Carbon Dioxide 23.6 Anion Gap 15.4 H BUN 30 H Creatinine 1.1 Est GFR (CKD-EPI 2020) 70.88 Glucose 175 H Calcium 9.0 Magnesium 2.3
--- NOTE | 2023-08-10 15:22 | ANES.PREOP_ITS ---
General Info Date of Service Date Performed: 08/10/23 Height: 6 ft 3 in Weight: 92.533 kg Body Mass Index (BMI): 25.4 Meds Allergies and Home Medications Allergies Allergy/AdvReac Type Severity Reaction Status Date / Time No Known Allergies Allergy Unverified 08/09/23 05:32 Home Medication Medication Instructions Recorded ascorbic acid (vitamin C) 500 mg 500 mg PO DAILY 11/16/19 tablet (Vitamin C) cetirizine 10 mg tablet 10 mg PO DAILY PRN 11/16/19 cholecalciferol (vitamin D3) 25 25 mcg PO DAILY 11/16/19 mcg (1,000 unit) capsule (Vitamin D3) lisinopril 20 1 tab PO DAILY 11/16/19 mg-hydrochlorothiazide 25 mg tablet multivitamin 1 tab PO DAILY 11/16/19 famotidine 40 mg tablet (Pepcid) 40 mg PO BID #60 tabs 08/07/23 metoclopramide HCl 5 mg tablet 5 mg PO QAC #30 tabs 08/07/23 (Reglan) ondansetron 4 mg disintegrating 4 mg PO Q8H PRN nausea and 08/07/23 tablet vomiting #20 tabs Current Visit Medications: Current Medications Generic Name Dose Route Start Last Admin Trade Name Freq PRN Reason Stop Dose Admin Acetaminophen 0 mg 08/09/23 08:37 Acetaminophen 325 Mg Tab PO Q4H PRN PRN Docusate Sodium 100 mg 08/09/23 08:37 Docusate Sodium 100 Mg Cap PO TID PRN PRN Potassium Chloride/Dextrose/Sod Cl 1,000 mls @ 150 mls/hr 08/09/23 06:45 08/10/23 13:55 Kcl 40meq/D5-0.9% Nacl IV 150 mls/hr INFUSION JOSH Administration IV Miscellaneous Supplies 1 each 08/09/23 08:45 Iv Access IV DIRECTED JOSH Lorazepam 1 mg 08/09/23 10:21 08/10/23 13:55 Lorazepam 2 Mg/Ml Vial IVP 1 mg Q4H PRN PRN Administration Polyethylene Glycol 17 gm 08/09/23 08:37 Polyethylene Glycol 3350 17 Gm Packet PO DAILY PRN PRN Constipation Promethazine HCl 25 mg 08/10/23 02:32 Promethazine 25 Mg Tab PO Q4H PRN PRN Sodium Chloride 0 ml 08/09/23 06:07 08/10/23 02:19 Normal Saline Flush 10 Ml Syr IVP 10 ml PRN PRN Administration Sodium Chloride 0 ml 08/09/23 08:30 08/10/23 07:35 Normal Saline Flush 10 Ml Syr IVP 30 ml BID JOSH Administration Sodium Chloride 0 ml 08/09/23 06:07 Normal Saline 10 Ml Vial IJ DIRECTED PRN PFSH Active Problems Active Problems: Problem Status Onset Code Tachycardia, paroxysmal I47.9 Gallstone ileus of small intestine K56.3 Hypertension I10 Acute hypokalemia E87.6 Nausea with vomiting R11.2 Reflux esophagitis K21.00 Nausea & vomiting R11.2 Diverticula of colon K57.30 Rectal bleeding K62.5 Impacted cerumen 12/06/13 H61.20 Hematoma 06/18/14 T14.8XXA Medical History Medical History History of pilonidal cyst Allergic rhinitis Sleep apnea Hyperlipidemia Hypertension Prediabetes Osteoarthritis Dermatitis of ear canal H/O meningioma of the brain Surgical History Surgical History History of colonoscopy (~08/16/20) Tobacco Smoking/Tobacco Use Status: Former Tobacco Use Alcohol Alcohol Intake: current Alcohol intake frequency: a few times a week Substance Use Substance use: Never Substance use type: does not use Vital Signs and Lab Results Vital Signs Most Recent Vital Signs in EMR: Most Recent Vital Signs Temp Pulse Resp BP Pulse Ox 36.4 C L 90 18 134/77 95 08/10/23 11:31 08/10/23 11:31 08/10/23 11:31 08/10/23 11:31 08/10/23 11:31 Lab Results 08/10/23 03:47 08/10/23 03:47 Blood Type / Crossmatch: 2 No Data to Display Complete Blood Count: 2 White Blood Count 17.18 10^3/uL (4.4-10.8) H 08/10/23 03:47 Red Blood Count 4.91 10^6/uL (4.36-5.78) 08/10/23 03:47 Hemoglobin 13.8 g/dL (13.5-17.5) 08/10/23 03:47 Hematocrit 43.0 % (40.0-50.0) 08/10/23 03:47 Platelet Count 391 10^3/uL (130-400) 08/10/23 03:47 Complete Metabolic Panel: 2 Sodium 147 mmol/L (136-145) H 08/10/23 03:47 Potassium 3.7 mmol/L (3.5-5.1) 08/10/23 03:47 Chloride 108 mmol/L (98-107) H 08/10/23 03:47 Carbon Dioxide 23.6 mmol/L (21.0-32.0) 08/10/23 03:47 BUN 30 mg/dL (7-18) H 08/10/23 03:47 Creatinine 1.1 mg/dL (0.70-1.30) 08/10/23 03:47 Est GFR (CKD-EPI 2020) 70.88 (mL/min/1.73m2) 08/10/23 03:47 Magnesium 2.3 mg/dL (1.8-2.4) 08/10/23 03:47 Calcium 9.0 mg/dL (8.5-10.1) 08/10/23 03:47 Albumin 3.7 g/dL (3.4-5.0) 08/09/23 05:53 Glucose 175 mg/dL (74-106) H 08/10/23 03:47 Liver Function Panel: 2 Alanine Aminotransferase (ALT/SGPT) 131 U/L (16-63) H 08/09/23 05:53 Aspartate Amino Transf (AST/SGOT) 92 U/L (15-37) H 08/09/23 05: 53 Coagulation Panel: 2 No Data to Display Cardiac Panel: 2 Troponin I < 50 ng/L (< or =60) 08/09/23 Arterial Blood Gas: 2 No Data to Display Venous Blood Gas: 2 No Data to Display Pancreas Panel: 2 Lipase 60 U/L (16-77) 08/09/23 05:53 Thyroid Panel: 2 No Data to Display Infectious Disease: 2 No Data to Display Blood Cultures: 2 No Data to Display Toxicology Panel: 2 No Data to Display Imaging and Studies Imaging and Studies Study information below may be from another EMR and interpreted by another provider. Please see original notes in EMR for more complete details. 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 Anesthesia Assessment and Plan Anesthesia History Personal History: No History of Anesthesia Complications Family History: No Family History of Anesthesia Complications Exercise Tolerance Exercise Tolerance: Metabolic Equivalents>4 Cardiac & Pulmonary Exam Cardiac Exam: Normal S1/S2 Heart Sounds Pulmonary Exam: Clear Bilateral Breath Sounds Implantable Cardiac Device Does patient have a Pacemaker or an ICD?: No Airway Exam Known Difficult Airway: No Mallampati Class: 2 Mouth Opening: Normal (> 3cm) Thyromental Distance: Greater than 3 cm Neck Range of Motion: Full ROM Neck Circumference: Normal Teeth Condition: Normal Dentition ASA Classification ASA Score: ASA 2 Emergency Case?: Yes NPO Status NPO Status: Full Stomach (CT with sig stomach contents. ) Anesthesia Plan Resuscitation Status: Full Code Anesthesia Technique: General Anesthesia Airway Planned: Endotracheal Tube Pain Management: Surgeon and patient request nerve block Monitors Used: Standard Monitors Preoperative Comments:: 73 yo male for exp lap due to SBO. CT with sig stomach contents. K was low on admission and has been replaced. sig PMHx: SAMI, HTN, preDM. He and his deny major. NGT was placed on med surg and is draining well. Consent performed with and Ananth.
--- NOTE | 2023-08-10 15:57 | CHAPLAIN ---
Ananth was sitting up in bed when I visited, with a washcloth on his forehead. He was clearly uncomfortable and threw up when I went to get crackers and a glass of water for the friend/family member who was visiting. I'll stop in another time.
--- NOTE | 2023-08-10 15:58 | W.SURGCON ---
Date of service: 08/10/23 Time of Service: 15:58 Assessment and Plan Assessment and plan (1) Gallstone ileus of small intestine: Status: Acute Assessment and plan: Informed consent is obtained for the procedural (explained in simple layman's terms that the pt and/or family could understand) explaining risks vs benefits and alternatives to the procedure and consequences if we do not do the procedure. Risks include but are not limited to: bleeding, infections, pneumonia, blood clots/DVT/PE, anesthesia (aspiration, damage to teeth/airway/WA/CVA//prolonged mechanical ventilation/PTX/IV infections), damage to bowel, bladder, blood vessels, ureters, bile ducts. Leakage from anastomosis requiring colostomy/ Wound infections requiring further surgery. ?Scarring and disfigurement. Subsequent bowel obstructions from scar tissue.? Chronic pain or numbness from the incision, or hernia. complications from anethesia. His stomach is quite dilated. We are attempted decompression w/ ngt, but there is a risk of aspiration. Post op ileus Pt will admitted to ICU overnight. d/w and daughter Rafita can't do epidural due to lovenox. further rec to follow findings ar surgery. This document was created with voice activated software and may contain errors. 30 mins spent in direct pt care and [40 in non face to face time (2) Diverticula of colon: Status: Acute (3) Nausea with vomiting: Status: Acute (4) Reflux esophagitis: Status: Acute (5) Tachycardia, paroxysmal: Status: Acute History of Present Illness Narrative: Patient is a patient is a 73-year-old 73-year-old male was admitted through the ER with nausea vomiting and abdominal pain. His states that he has been having pain off and on for the last few months. He will not tell her when he is feeling poorly. Last night he reached the point where he was unable to keep anything down and was having tense abdominal pain. Patient's only surgeries are removal of nasal polyps and a pilonidal cyst. He had no problems with anesthesia. He quit smoking 36 years ago. He has never had a heart attack or stroke. He has hypertension. He is prediabetic. Review of Systems Narrative: Patient has been medicated with Ativan and I am able to get a review of systems. History is taken from his and the chart. PFSH All Active Problems Tachycardia, paroxysmal (Acute) Gallstone ileus of small intestine (Acute) Hypertension (Chronic) Acute hypokalemia (Acute) Nausea with vomiting (Acute) Reflux esophagitis (Acute) Nausea & vomiting (Acute) Diverticula of colon (Acute) severe. extend over to the transverse colon 08/23 Rectal bleeding (Acute) Impacted cerumen (Acute 12/06/13) Hematoma (Acute 06/18/14) Medical History History of pilonidal cyst Allergic rhinitis Sleep apnea Hyperlipidemia Prediabetes Osteoarthritis Dermatitis of ear canal H/O meningioma of the brain Surgical History (Updated 08/10/23 @ 16:05 by Jovanna Li DO) History of nasal surgery History of colonoscopy (~08/16/20) Social History Smoking/Tobacco Use Status: Former Tobacco Use Quit Date: 04/05/85 Smoking risk assessment performed?: Yes Alcohol Intake: current Alcohol Intake frequency: a few times a week Drug use: Never Substance use type: does not use Housing: house Do you feel safe at home: Yes Do you feel safe in your relationship?: Yes Exam Narrative Exam Narrative: Pt is unable to give any history secondary to ativan HEENT- NGT placed poor denititon] pt cannot cooperate w/ exam L: CTA b/l H: r/r/r ABomen: distented. no surgical scars or hernias no BS Ext: no c/c/e Results Last Vital Signs Temp 36.4 C L 08/10/23 15:47 Pulse 104 H 08/10/23 15:47 Resp 16 08/10/23 15:47 BP 144/80 H 08/10/23 15:47 Pulse Ox 95 08/10/23 15:47 Labs 08/10/23 03:47 08/10/23 03:47 Labs: Laboratory Results - last 24 hr 08/10/23 03:47 WBC 17.18 H RBC 4.91 Hgb 13.8 Hct 43.0 MCV 88 MCH 28.1 MCHC 32.1 RDW 15.2 H Plt Count 391 MPV 9.6 Sodium 147 H Potassium 3.7 Chloride 108 H Carbon Dioxide 23.6 Anion Gap 15.4 H BUN 30 H Creatinine 1.1 Est GFR (CKD-EPI 2020) 70.88 Glucose 175 H Calcium 9.0 Magnesium 2.3
[2023-08-10] MEDS: Lactated Ringers 1,000 ML 30 ML IV (16:17)
[2023-08-10] MEDS: ERTAPENEM 1 GM in Normal Saline 50 ML IVPB (16:38)
--- NOTE | 2023-08-10 16:46 | W.ANESNERVE ---
Nerve Block Single Injection Procedure Date and Time Date Performed: 08/10/23 Procedure Start: 16:25 Location Where Procedure Performed Procedure Location: Operating Room Procedure Stop: 16:32 Reason Performed: Postoperative Analgesia Requesting Provider: Jovanna Li Timeout Performed Timeout Performed: Yes Monitoring Used ECG, Blood Pressure, SpO2 and ETCO2 Sterility Sterility: Hand Hygiene, Surgical Cap, Surgical Mask and Chlorhexidine Sedation Given During Procedure Sedation Given (Indicate Dose Given): No Sedation given Patient Mental Status Patient Mental Status: Performed under general anesthesia Nerve Block 1st Nerve Block: Laterality: Bilateral Block Type: Rectus Sheath (Bilateral) Ultrasound Image Saved?: Yes Needle / Catheter Used: 100mm SonoPlex II Local Anesthetic Bolus (Indicate Dose Given): Bupivacaine 0.25% Dose:: 20 mL and Exparel Dose:: 20 mL Additives (Indicate Dose Given): None Ultrasound: Sterile probe cover and gel used Nerve Stimulator: Not Used Paresthesia: None Procedure Tolerated: No Complications Procedure Outcome: Successful Performed By: Fegn Moraes
--- NOTE | 2023-08-10 16:55 | GB_PTH ---
PATIENT: Ananth Ann LOC: ICU U#:[id number] AGE/SX: 73/M ROOM: ICU.221 RE08/09/[address]: Alejandro Cueva MD : 1950 BED: A DIS: 08/13/2023 SPEC #: [id number] RECD: 08/10/23 18:04 STATUS: TORSTEN REQ #: [id number] KE: 08/10/23 16:[address]: Kirit Vieira DEPT: Surgical Specimen RECD BY: Jesika Uriarte ENTERED: 08/10/23 18:06 SP TYPE: GB OTHR DR: Alejandro Cueva MD Unknown,Unknown Tissues: 1 - STONES Procedures: GROSS LEVEL 1 Comments: [id number]
[2023-08-10] MEDS: Lidocaine 1% Multi-Dose W/EPI 1/100,000 50 ML VIAL (17:13)
--- NOTE | 2023-08-10 17:31 | ROE_ITS ---
Date of service: 08/10/23 Time of Service: 17:31 Operative Note Operative Note DATE OF PROCEDURE: 08/10/23 PRE-OP DIAGNOSIS: gallstones ileus/bowel obstruction POST-OP DIAGNOSIS: same PROCEDURE: Ex lap. excision of gallstone from ileum with repair of enterotomy SURGEON: Jovanna Li MANUFACTURING PROJECT ENGINEER: Violeta Dorantes ANESTHESIA TYPE: Local By Surgeon, General LMA/ETT and Primary Nerve Block Refer to Anesthesia Record ESTIMATED BLOOD LOSS: 10 PATHOLOGY: other COMPLICATIONS: None Patient was transported to: ICU Patient's condition: stable Procedure Description: Patient is a 73-year-old male diagnosed with a gallstone ileus and has shown improvement of the stone in the past 36 hours. He continues to exhibit signs and symptoms of obstruction and is here for exploratory laparotomy to remove the stone. Again we are not addressing his gallbladder issues at this time. The patient has received a significant amount of Ativan that he is not able to give consent at this time. Consent is obtained from his . Risks of surgery include but not limited to: Bleeding, infection, pneumonia, blood clots, damage to bowel, bladder, blood vessels, ureters, hernias, wound infection this strictures persistent ileus passage of further gallstones, complications of anesthesia and other and unpredictable factors. Patient is brought to the operative suite and placed in the supine position. Anesthesia was administered per the department of anesthesia. NG tube had been placed prior to coming down to the OR. He has significant amount of contents in his stomach. We were able to evacuate this prior to induction. He had no aspiration. Kaur catheter is placed. Good IV access is assured. He did receive preop antibiotics. Timeout is performed. Block is performed by anesthesia. Please see their dictation. Patient is prepped and draped in the usual sterile fashion using a ChloraPrep scrub solution. Review of the CT from this afternoon shows the stone is in the jejunal ileal transition area in the left lower quadrant. 30 cc of 1% lidocaine with epi was used for local anesthesia. A vertical midline incision is made 2 fingerbreadths above and below the umbilicus. Electrocautery was used to provide hemostasis and dissect down to the peritoneum. The peritoneum was elevated with 2 hemosta ts and entered sharply. There is a scant amount of purulent material upon entering the abdomen and cultures are taken. NG tube is in good position. He has diverticula and a significant amount of stool in the colon. There is no palpable lesions in the liver. There are no palpable lesions in the stomach. The small bowel was run. The stone is localized. The stone is 5 x 4 cm. A transverse incision is made in the antimesenteric portion of the bowel using electrocautery. The stone was extracted. The bowel was then closed longitudinally in a 2 layer fashion using 4-0 Vicryl on the mucosa in a running fashion. The serosa is closed with 4-0 Prolene interrupted imbricating Lembert sutures. There is no leak of succus. The bowel was placed back in its normal anatomical position. No bleeding was noted. There is a good palpable lumen. The abdomen is irrigated with a liter of saline. Interceed was placed under the incision. The fascia was closed in 2 layers with 0 Vicryl. No drain is placed. Skin is closed with leonardo. A daniel dressing was applied. Patient tolerated the procedure well without complication transferred directly to the ICU. We will keep him overnight in the ICU for observation. Patient has electrolyte abnormalities due to the severe loss of GI contents. And was having frequent PVCs. His was apprised of his condition.
--- NOTE | 2023-08-10 17:31 | BRIEFOP_ITS ---
Date of service: 08/10/23 Time of Service: 17:31 Brief Operative Note Procedure/Pre & Post Op Diagnoses/Integrity Specialist: Operation Date: 08/10/23 16:20 Actual Procedures p Exploratory Laparotomy - Jovanna Li DO Pre-Op Diagnosis: GALLSTONE ILEUS/ SMALL BOEWL OBSTRUCTION Post-Op Diagnosis: GALLSTONE ILEUS/ SMALL BOEWL OBSTRUCTION Case Staff Physician Integrity Specialist: Violeta Dorantes Anesthesia Anesthesia Type: Local By Surgeon, General LMA/ETT and Primary Nerve Block 5 Specimen/Culture Specimen(s): peritoneal cultures Culture(s): AEROBIC CULTURE PERITONEAL ANAEROBIC CULTURE PERITONEAL Complications Complications: None
--- NOTE | 2023-08-10 17:33 | CHAPLAIN ---
I visited Ananth when he was on Med/Surg earlier today. He was very uncomfortable. He was moved to the ICU and went to the OR to remove a gallstone from his intestine, his explained. She said she has been a bit anxious waiting for him to return from surgery. She said she looked it up online and read the surgery would take about half an hour. I suggested that getting through pre-surgery, post-op and recovery will add sometime and suggested she check with Ananth's nurse, LEOBARDO Ang, to see if she knows when Ananth will be back in the ICU. I let Ashia know that Ananth's is anxious about the procedure. Their two daughters are on their way from [place] and [place] and should arrive this evening.
[2023-08-10 18:30] LABS: Anion Gap 13.1 mmol/L (3-11); BUN 35 mg/dL (7-18); CO2 23.9 mmol/L (21.0-32.0); CREATININE 1.4 mg/dL (0.70-1.30); Chloride 112 mmol/L (98-107); Estimated GFR 53.07 (mL/min/1.73m2); Glucose 198 mg/dL (74-106); Potassium 4.2 mmol/L (3.5-5.1); Sodium 149 mmol/L (136-145)
[2023-08-10 18:31] LABS: Magnesium 2.4 mg/dL (1.8-2.4)
[2023-08-10] MEDS: DEXTROSE 5%-0.45% SALINE 1,000 ML 75 ML IV (19:17)
--- NOTE | 2023-08-10 19:42 | W.ANESPOSTOP ---
Postoperative Evaluation Date, Time and Location Date Performed: 08/10/23 Time Performed: 18:20 Patient Location: Intensive Care Unit Vital Signs Most Recent Imported Vital Signs: Most Recent Vital Signs Temp Pulse Resp BP Pulse Ox 37.4 C 94 H 18 153/82 H 99 08/10/23 17:50 08/10/23 17:50 08/10/23 17:50 08/10/23 17:50 08/10/23 17:50 Pain Score Most Recent Pain Score: Most Recent Pain Score Pain Level 0 08/10/23 17:50 Assessment Mental Status: Arousable with meaningful communication Airway and Respiratory Function: Patent airway with normal (patient baseline) respiratory exam Cardiovascular Function: Hemodynamically Stable Hydration Status: Adequately Hydrated Nausea & Vomiting: No Nausea or Vomiting Pain: Pt. Denies Any Pain Peripheral Nerve Block: Regional nerve block not resolved at time of post operative discharge
[2023-08-10] MEDS: ACETAMINOPHEN 1,000 MG/100 ML BTL 400 MG IVPB (19:54)
[2023-08-10] MEDS: Pantoprazole 40 MG VIAL IVP (19:55)
[2023-08-11] VITALS (57 sets, daily range): BP systolic 116–153; BP diastolic 67–118; PULSE 55–92; RESP 12–27; TEMP 36.6–36.8; O2SAT 87–98
[2023-08-11] MEDS: Metoprolol 5 MG/5 ML VIAL IVP ×5 (00:05→22:03)
[2023-08-11] MEDS: Normal Saline Flush 10 ML SYR IVP ×6 (00:05→18:30)
[2023-08-11] MEDS: ACETAMINOPHEN 1,000 MG/100 ML BTL 400 MG IVPB ×3 (01:44→18:31)
[2023-08-11] MEDS: Enoxaparin 40 MG/0.4 ML SYR SC (06:10)
[2023-08-11 07:04] LABS: Abs Immature Grans 0.05 10^3/uL (0.0-0.06); Absolute Basophil Count 0.04 10^3/uL (0.0-0.2); Absolute Eosinophil Count 0.03 10^3/uL (0.0-0.7); Absolute Lymphocyte Count 0.76 10^3/uL (1.2-3.4); Absolute Monocyte Count 1.29 10^3/uL (0.1-0.8); Basophils % 0.3 %; Eosinophils % 0.2 %; HCT 38.8 % (40.0-50.0); HGB 12.6 g/dL (13.5-17.5); Immature Grans % 0.4 %; MCH 28.7 pg (27.0-33.0); MCHC 32.5 % (32.0-36.0); MCV 88 fL (80-95); MPV 10.4 fL (8.0-11.0); Monocytes % 10.2 %; Neutrophils % 82.9 %; Platelet Count 367 10^3/uL (130-400); RBC 4.39 10^6/uL (4.36-5.78); RDW 15.8 % (11.8-14.1); RDW-SD 51.4 fL; WBC 12.67 10^3/uL (4.4-10.8)
[2023-08-11 07:23] LABS: Magnesium 2.4 mg/dL (1.8-2.4)
[2023-08-11 07:26] LABS: ALT 153 U/L (16-63); AST 27 U/L (15-37); Albumin 2.7 g/dL (3.4-5.0); Alkaline Phosphatase 107 U/L (46-116); Anion Gap 12.1 mmol/L (3-11); BUN 33 mg/dL (7-18); Bilirubin, Total 0.6 mg/dL (0.2-1.0); CO2 23.9 mmol/L (21.0-32.0); Calcium 8.9 mg/dL (8.5-10.1); Chloride 113 mmol/L (98-107); Estimated GFR 79.47 (mL/min/1.73m2); Glucose 157 mg/dL (74-106); Potassium 3.7 mmol/L (3.5-5.1); Sodium 149 mmol/L (136-145); Total Protein 6.6 g/dL (6.4-8.2)
[2023-08-11] MEDS: DEXTROSE 5%-0.45% SALINE 1,000 ML 75 ML IV ×2 (07:56→21:14)
--- NOTE | 2023-08-11 08:31 | W.PM.PROGNOT ---
Date of Service Date of service: 08/11/23 Time of Service: 08:31 Assessment and Plan Assessment and plan (1) Gallstone ileus of small intestine: Status: Acute Assessment and plan: POD #1 Exploratory Laparotomy with excision of gallstone from ileum with repair of enterotomy. Continue with NPO status NG tube in place, function well. Significantly decreased out put, 775 mL overnight will continue to monitor. Ice chips are okay High encouraged activity OOB, ambulation, sitting in the chair Pulmonary toilet Pain is well controlled. Lam in place, dark felicia colored urine noted. Significantly improved cognition and ability to engage in conversation this morning. Awaiting bowel function return. (2) Diverticula of colon: Status: Acute (3) Nausea with vomiting: Status: Acute (4) Reflux esophagitis: Status: Acute (5) Tachycardia, paroxysmal: Status: Acute Subjective Subjective Interval history since last seen: Arrive with Ananth resting comfortably in bed. He denies having any pain. Describes his nausea has improved, however he continues to have hiccups intermittently. He is eager to have the lam dc. Exam Const General: cooperative, healthy appearing and comfortable Orientation: alert and oriented x3 Resp Effort & Inspection: normal respiratory effort, no audible wheezes and no cough GI Inspection: normal to inspection and non-distended Palpation: soft, no guarding and nontender Auscultation: normal bowel sounds Objective Last Vital Signs Temp 36.7 C 08/11/23 04:40 Pulse 63 08/11/23 05:48 Resp 16 08/11/23 05:16 BP 124/68 08/11/23 05:18 Pulse Ox 98 08/11/23 05:16 Laboratory Results - last 24 hr 08/10/23 08/11/23 18:10 05:55 WBC 12.67 H RBC 4.39 Hgb 12.6 L Hct 38.8 L MCV 88 MCH 28.7 MCHC 32.5 RDW 15.8 H Plt Count 367 MPV 10.4 Immature Gran % 0.4 Neutrophils % 82.9 Lymphocytes % 6.0 Monocytes % 10.2 Eosinophils % 0.2 Basophils % 0.3 Nucleated RBC % 0.0 Absolute Neutrophils 10.50 H Absolute Lymphocytes 0.76 L Absolute Monocytes 1.29 H Absolute Eosinophils 0.03 Absolute Basophils 0.04 Sodium 149 H 149 H Potassium 4.2 3.7 Chloride 112 H 113 H Carbon Dioxide 23.9 23.9 Anion Gap 13.1 H 12.1 H BUN 35 H 33 H Creatinine 1.4 H 1.0 Est GFR (CKD-EPI 2020) 53.07 79.47 Glucose 198 H 157 H Calcium 9.0 8.9 Magnesium 2.4 2.4 Total Bilirubin 0.6 AST 27 ALT 153 H Alkaline Phosphatase 107 Total Protein 6.6 Albumin 2.7 L PAWSS Have you Been Recently Intoxicated or Drunk Within the Last 30 days?: No Have you Ever Experienced Previous Episodes of Alcohol Withdrawal?: No Have you ever Experienced Withdrawal Seizures?: No Have you ever Experienced Delirium Tremens(DT)s?: No Have you ever undergone Alcohol Rehabilitation Treatment (i.e, inpt ot outpatient treatment programs)?: No Have you ever Experienced Blackouts?: No Have you ever Combined Alcohol with other Downers within the last 90 days?: No Have you ever Combined Alcohol with any other Substance of Abuse during the last 90 days?: No Positive Blood Alcohol level on Presentation? [PCS.BAL]: No Evidence of Increased Autonomic Activity (i.e. HR>120, tremor, sweating, agitation, nausea)?: No Result: 0 Time Spent with Patient Time Spent with Patient: <25 minutes Time was spent: preparing to see the patient(eg.review tests), obtaining and/or reviewing separately otained hiistory and counseling the patient
--- NOTE | 2023-08-11 11:29 | CMPROGNOTE_ITS ---
Date of service: 08/11/23 Time of Service: 11:29 Care Management Progress Note Progress Note Text Progress Note Text: S/O: Ananth now in ICU, sleeping comfortably; RN reports he has been sleepy today. RN reports Ananth is now alert and oriented no longer presenting with confusion, soft restraints removed this morning. CM following. A: 73 year old admitted to [facility] 08/09/23 for intractable N/V, hypokalemia P: Anticipate Ananth will return home when ready per MD. He will follow up with his PCP and plan of care as prescribed. Further evaluation anticipated post surgically. CM continues to follow. SDOH(Care Management) Screening Will the Patient Participate in the Screening?: Declined to provide Do you worry about having a steady place to live?: no In the past 12 months, have you had to go without electric, gas, oil or water in your home?: no Have you or anyone in your house had to go without enough food to eat?: no Has lack of transportation kept you from medical appointments or from doing things needed for daily living?: no Has anyone in your support network made you feel unsafe for any reason?: no
--- NOTE | 2023-08-11 13:21 | W.NUTRFU ---
Date of service: 08/10/23 Time of Service: 13:15 Nutrition Note NOTE: 73yo male admitted with n/v, acute hypokalemia, and found to have gallstone ileus of sm intestine in exp surgery. Spoke to pt's in room as Ananth was down getting imaging done at the time of visit. Pt NPO since lunch at 5/6 upon admission, but has not eaten at home much since the beginnig of the month due to the episodic vomiting which got worse. UBW 3 years ago was ~102kg. Current wt data seems inconsistent but ~95-97kg seems to be about right according to his . About 5.9%wt loss x3 years. Estimated energy needs: 2094 (REE x1.3AF), 78gprotein (.8g/kg) Nutrition Dx: Inadequate energy intake (NI-1.4) related to ileus of small intestine and acute nausea and vomiting as evidenced by pt's current post operative status. Intervention: Due to high risk for wt loss, malnutrition, muscle wasting with prolonged NPO status and recent lack of po intake, would recommend TPN for nutrition support if bowel function doesn't return very soon so diet can be advanced. Monitoring: will monitor for diet advancement and/or TPN consult. Time Spent in Nutritional Counseling and Treatment: 0min
[2023-08-11] MEDS: ERTAPENEM 1 GM in Normal Saline 50 ML IVPB (16:21)
[2023-08-11] MEDS: Normal Saline 10 ML VIAL IJ (18:30)
[2023-08-11] MEDS: Pantoprazole 40 MG VIAL IVP (18:30)
[2023-08-12] VITALS (23 sets, daily range): BP systolic 130–153; BP diastolic 70–81; PULSE 51–70; RESP 12–19; TEMP 36.4–37; O2SAT 95–98
[2023-08-12] MEDS: ACETAMINOPHEN 1,000 MG/100 ML BTL 400 MG IVPB ×3 (02:58→18:25)
[2023-08-12] MEDS: Metoprolol 5 MG/5 ML VIAL IVP ×4 (03:41→21:24)
[2023-08-12] MEDS: Enoxaparin 40 MG/0.4 ML SYR SC (04:36)
[2023-08-12 09:33] LABS: Anion Gap 11.4 mmol/L (3-11); BUN 30 mg/dL (7-18); CO2 25.6 mmol/L (21.0-32.0); CREATININE 0.9 mg/dL (0.70-1.30); Calcium 8.7 mg/dL (8.5-10.1); Chloride 111 mmol/L (98-107); Estimated GFR 90.18 (mL/min/1.73m2); Glucose 125 mg/dL (74-106); Potassium 3.3 mmol/L (3.5-5.1); Sodium 148 mmol/L (136-145)
--- NOTE | 2023-08-12 09:50 | W.PM.PROGNOT ---
Date of Service Date of service: 08/12/23 Time of Service: 09:50 Assessment and Plan Assessment and plan (1) Gallstone ileus of small intestine: Status: Acute Assessment and plan: POD #2 Exploratory Laparotomy with excision of gallstone from ileum with repair of enterotomy. Awaiting morning labs. Continue with NPO status, NG tube in place, function well. Ice chips are okay. would consider removing, Output continues to be elevated. Highly encouraged activity OOB, ambulation, sitting in the chair Pulmonary toilet Pain is well controlled. Awaiting bowel function return. (2) Diverticula of colon: Status: Acute (3) Nausea with vomiting: Status: Acute (4) Reflux esophagitis: Status: Acute (5) Tachycardia, paroxysmal: Status: Acute Subjective Subjective Interval history since last seen: Arrive with patient resting comfortbaly in bed. He states that he is tired this morning, but other dawson feeling well. He describes some abdominal soreness and some intermittent hiccups. Exam Const General: cooperative, healthy appearing and comfortable Orientation: alert and oriented x3 Resp Effort & Inspection: normal respiratory effort, no audible wheezes and no cough GI Inspection: normal to inspection Palpation: soft, no guarding and tender (Mild ) Auscultation: hypoactive bowel sounds Objective Last Vital Signs Temp 37 C 08/12/23 04:00 Pulse 54 L 08/12/23 04:11 Resp 14 08/12/23 03:43 BP 151/81 H 08/12/23 03:43 Pulse Ox 96 08/12/23 03:43 PAWSS Have you Been Recently Intoxicated or Drunk Within the Last 30 days?: No Have you Ever Experienced Previous Episodes of Alcohol Withdrawal?: No Have you ever Experienced Withdrawal Seizures?: No Have you ever Experienced Delirium Tremens(DT)s?: No Have you ever undergone Alcohol Rehabilitation Treatment (i.e, inpt ot outpatient treatment programs)?: No Have you ever Experienced Blackouts?: No Have you ever Combined Alcohol with other Downers within the last 90 days?: No Have you ever Combined Alcohol with any other Substance of Abuse during the last 90 days?: No Positive Blood Alcohol level on Presentation? [PCS.BAL]: No Evidence of Increased Autonomic Activity (i.e. HR>120, tremor, sweating, agitation, nausea)?: No Result: 0 Time Spent with Patient Time Spent with Patient: <25 minutes Time was spent: preparing to see the patient(eg.review tests), obtaining and/or reviewing separately otained hiistory and counseling the patient
[2023-08-12] MEDS: DEXTROSE 5%-0.45% SALINE 1,000 ML 75 ML IV (10:30)
--- NOTE | 2023-08-12 10:36 | PDOC.CMPRO ---
Date of service: 08/12/23 Time of Service: 10:36 Care Management Progress Note Progress Note Text Progress Note Text: S/O: Ananth remains in ICU, family meeting today at 1330, to review current functioning and discuss community based supports with , Harsh and daughters, Nilda and Jada who intends on staying with her parents post discharge. Per family discussion, MEKA FERNANDEZ ([facility], [facility] planning) referrals completed. Awaiting further evaluation to determine discharge recommendations. CM continues to follow. A: 73 year old admitted 08/09/23 for intractable nausea, vomiting, hypokalemia P: Anticipate Ananth will return home when ready per MD. He will follow up with his PCP and plan of care as prescribed. MEKA FERNANDEZ ([facility], [facility] planning) referrals completed. Awaiting further evaluation to determine discharge recommendations. CM continues to follow. SDOH(Care Management) Screening Will the Patient Participate in the Screening?: Declined to provide Do you worry about having a steady place to live?: no In the past 12 months, have you had to go without electric, gas, oil or water in your home?: no Have you or anyone in your house had to go without enough food to eat?: no Has lack of transportation kept you from medical appointments or from doing things needed for daily living?: no Has anyone in your support network made you feel unsafe for any reason?: no
[2023-08-12 11:20] LABS: Magnesium 2.4 mg/dL (1.8-2.4)
[2023-08-12 11:25] LABS: HCT 36.9 % (40.0-50.0); HGB 11.9 g/dL (13.5-17.5); MCH 28.8 pg (27.0-33.0); MCHC 32.2 % (32.0-36.0); MCV 89 fL (80-95); MPV 10.5 fL (8.0-11.0); Platelet Count 313 10^3/uL (130-400); RBC 4.13 10^6/uL (4.36-5.78); RDW 15.4 % (11.8-14.1); RDW-SD 50.7 fL; WBC 8.97 10^3/uL (4.4-10.8)
[2023-08-12] MEDS: POTASSIUM CHLORIDE 20 MEQ/100 ML BAG 50 MEQ IVINF (13:06)
[2023-08-12] MEDS: Normal Saline Flush 10 ML SYR IVP ×3 (14:25→21:24)
--- NOTE | 2023-08-12 15:25 | CHAPLAIN ---
Ananth said he's feeling much better today, and recovering from his surgery. His , daughters and granddaughters have been here to visit. 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 He was pleasant and easily engaged in conversation. Ananth said he was told he cranky, but doesn't remember everything that went on he. He was very uncomfortable on the days leading up to his surgery.
--- NOTE | 2023-08-12 16:09 | W.PM.PROGNOT ---
Date of Service Date of service: 08/12/23 Time of Service: 16:09 Assessment and Plan Assessment and plan (1) Gallstone ileus of small intestine: Status: Acute Assessment and plan: I think the ileus portion is resolving, and is done well with removal of the nasogastric tube today. He does not have any nausea or vomiting this afternoon, so we will slowly advance his diet. Subjective Subjective Interval history since last seen: Ananth looks great. He is more awake and alert. He is passing flatus, and his appetite has been increasing. Potassium is a little bit low today. Exam GI Other: Abdomen is soft and nondistended. He has good bowel sounds. His daniel dressing is clean. Objective Last Vital Signs Temp 98.6 F 08/12/23 04:00 Pulse 54 L 08/12/23 12:01 Resp 16 08/12/23 12:01 BP 149/74 H 08/12/23 12:01 Pulse Ox 95 08/12/23 12:01 Laboratory Results - last 24 hr 08/12/23 06:10 WBC 8.97 RBC 4.13 L Hgb 11.9 L Hct 36.9 L MCV 89 MCH 28.8 MCHC 32.2 RDW 15.4 H Plt Count 313 MPV 10.5 Sodium 148 H Potassium 3.3 L Chloride 111 H Carbon Dioxide 25.6 Anion Gap 11.4 H BUN 30 H Creatinine 0.9 Est GFR (CKD-EPI 2020) 90.18 Glucose 125 H Calcium 8.7 Magnesium 2.4 PAWSS Have you Been Recently Intoxicated or Drunk Within the Last 30 days?: No Have you Ever Experienced Previous Episodes of Alcohol Withdrawal?: No Have you ever Experienced Withdrawal Seizures?: No Have you ever Experienced Delirium Tremens(DT)s?: No Have you ever undergone Alcohol Rehabilitation Treatment (i.e, inpt ot outpatient treatment programs)?: No Have you ever Experienced Blackouts?: No Have you ever Combined Alcohol with other Downers within the last 90 days?: No Have you ever Combined Alcohol with any other Substance of Abuse during the last 90 days?: No Positive Blood Alcohol level on Presentation? [PCS.BAL]: No Evidence of Increased Autonomic Activity (i.e. HR>120, tremor, sweating, agitation, nausea)?: No Result: 0 Time Spent with Patient Time Spent with Patient: <25 minutes Time was spent: preparing to see the patient(eg.review tests), ordering medications,tests, procedures, indepentently interpreting results and counseling the patient
[2023-08-12] MEDS: ERTAPENEM 1 GM in Normal Saline 50 ML IVPB (16:23)
[2023-08-12] MEDS: Pantoprazole 40 MG VIAL IVP (18:25)
[2023-08-12] MEDS: Melatonin 3 MG TAB PO (21:25)
[2023-08-13] VITALS (12 sets, daily range): BP systolic 111–152; BP diastolic 68–81; PULSE 57–98; RESP 14–23; TEMP 36.7–37.8; O2SAT 93–99
[2023-08-13] MEDS: Enoxaparin 40 MG/0.4 ML SYR SC (06:36)
[2023-08-13 06:53] LABS: HCT 36.5 % (40.0-50.0); HGB 11.7 g/dL (13.5-17.5); MCH 28.2 pg (27.0-33.0); MCHC 32.1 % (32.0-36.0); MCV 88 fL (80-95); MPV 10.2 fL (8.0-11.0); Platelet Count 290 10^3/uL (130-400); RBC 4.15 10^6/uL (4.36-5.78); RDW 15.3 % (11.8-14.1); RDW-SD 49.5 fL; WBC 9.26 10^3/uL (4.4-10.8)
[2023-08-13 07:08] LABS: Anion Gap 9.1 mmol/L (3-11); BUN 22 mg/dL (7-18); CO2 25.9 mmol/L (21.0-32.0); CREATININE 0.8 mg/dL (0.70-1.30); Calcium 8.5 mg/dL (8.5-10.1); Chloride 110 mmol/L (98-107); Estimated GFR 93.45 (mL/min/1.73m2); Glucose 101 mg/dL (74-106); Potassium 3.4 mmol/L (3.5-5.1); Sodium 145 mmol/L (136-145)
[2023-08-13] MEDS: Lisinopril 20 MG TAB PO (07:54)
[2023-08-13] MEDS: Normal Saline Flush 10 ML SYR IVP (07:55)
[2023-08-13] MEDS: Famotidine 20 MG TAB 40 MG PO (07:55)
--- NOTE | 2023-08-13 08:09 | PDOC.CMPRO ---
Date of service: 08/13/23 Time of Service: 08:09 Care Management Progress Note Progress Note Text Progress Note Text: S/O: Ananth remains in ICU, he was sitting up in his chair when CM met with he and his family, and had walked a loop with the FWW with RN. Family meeting today to review current functioning and referrals for community based supports with , Harsh and daughters, Nilda and Jada who intends on staying with her parents post discharge. Per family discussion, MEKA FERNANDEZ ([facility], [facility] and LTC planning) referrals completed. Home health RN and PT anticipated as well. CM continues to follow. A: 73 year old admitted 08/09/23 for intractable nausea, vomiting, hypokalemia P: Anticipate Ananth will return home when ready per MD, his daughter Jada will be supporting her parents. He will follow up with his PCP and plan of care as prescribed. MEKA FERNANDEZ ([facility], [facility] and LTC planning) referrals completed, anticipate new Home Health orders for PT/RN as well. CM continues to follow. SDOH(Care Management) Screening Will the Patient Participate in the Screening?: Declined to provide Do you worry about having a steady place to live?: no In the past 12 months, have you had to go without electric, gas, oil or water in your home?: no Have you or anyone in your house had to go without enough food to eat?: no Has lack of transportation kept you from medical appointments or from doing things needed for daily living?: no Has anyone in your support network made you feel unsafe for any reason?: no
--- NOTE | 2023-08-13 12:29 | PDOC.CMDIS ---
Date of service: 08/13/23 Time of Service: 12:29 LACE Index Scoring Tool Questions: Length of Stay (in days): 4 - 6 Was the patient admitted via the E.D.?: Yes E.D. Visits: 1 Answers: Total Score: 8 Risk of Readmission: Low Risk Care Management Discharge Plan Reason for Hospitalization: Intractable nausea, vomiting, hypokalemia Discharge Plan: Ananth will return home when ready per MD, his daughter Jada will be supporting her parents. He will follow up with his PCP and plan of care as prescribed. MEKA FERNANDEZ ([facility], [facility] and [facility]TC planning) referrals completed, anticipate new Home Health orders for PT/RN as well. Jada will transport Ananth via private vehicle. CM continues to follow. Patient/Family Education Needs: Review discharge instructions, community based services, supports, discuss self care needs upon discharge; Ananth reports having a FWW and Cane at home and is agreeable to all referrals at time of discharge. Services Needed at Discharge: Home Delivered Meals and Home Health Care Services SDOH Health Related Social Needs: Health related social needs food insecurity, transpo insecurity Health related social needs details New baseline functioning; not driving at this time, shares concerns about cost of food on fixed income, especially healthy food recommended by consumer loan processor. Health related social needs: food insecurity(Z59.41) and transportation insecurity(Z59.82) Health related social needs details: New baseline functioning; not driving at this time, shares concerns about cost of food on fixed income (does not anticipate returning to [employer] [facility]), especially healthy food recommended by consumer loan processor. Referrals and interventions: MEKA FERNANDEZ: food, assistant terminal manager planning Care Management Referrals: Thony
--- NOTE | 2023-08-13 15:38 | DSE_ITS ---
Date of service: 08/13/23 Time of Service: 15:38 DS: Diagnosis Discharge Diagnosis (1) Gallstone ileus of small intestine: Status: Acute Discharge Plan Disposition Patient Disposition: Home Condition: Good Discharge Details Reason For Visit: Interactable Nausea/Vomiting,Hypokalemia Admit Date/Time: 08/09/23 07:26 Admit Provider: Alejandro Cueva Attending Provider: Alejandro Cueva Primary Care Provider: Vu Ma Hospital Course Hospital Course: 73 y/o male who was admitted to the hospital for intractable nausea and vomiting was found to have a calcified intraluminal mass in the proximal small bowel. He underwent exploratory laparotomy and was found to have a gallstone ileus. Postoperatively Ananth did very well, his mentation cleared and he had an NG tube in place for 48 hours postop. He was slowly progressed onto a regular diet which he tolerated very well. His pain had been controlled throughout. He does have a daniel dressing over his laparotomy incision which will need to be removed on 08/15. He will discharge home later today on a regular diet. Restrictions include no lifting, pushing or pulling greater than 10 pounds. No strenuous bending or twisting. He will need to follow-up in the surgical office in 2 weeks for postop visit. Home Meds and New Rx's Prescriptions: New acetaminophen 325 mg Tablet 650 mg PO Q6H PRN PRNQty: 14 0RF Continued cetirizine 10 mg tablet 10 mg PO DAILY PRN lisinopril-hydrochlorothiazide 20-25 mg tablet 1 tab PO DAILY multivitamin Tablet 1 tab PO DAILY ascorbic acid (vitamin C) [Vitamin C] 500 mg Tablet 500 mg PO DAILY cholecalciferol (vitamin D3) [Vitamin D3] 25 mcg (1,000 unit) Capsule 25 mcg PO DAILY famotidine [Pepcid] 40 mg tablet 40 mg PO BID Qty: 60 0RF ondansetron 4 mg tablet,disintegrating 4 mg PO Q8H PRN (Reason: nausea and vomiting) Qty: 20 0RF metoclopramide HCl [Reglan] 5 mg tablet 5 mg PO QAC Qty: 30 0RF Rx Instructions: administer 30 minutes before meals Discharge Instructions Activity:: Activity as Tolerated Equipment/Supplies:: No Equipment Needed Diet:: Normal Diet Discharge Orders Discharge Orders: Discharge Order (Routine); Ordered 08/13/23 Ordered By: Violeta Dorantes DS: Summary Time Spent with Patient providing and/or coordinating discharge services: Less than 30 minutes Status at Discharge Functional status at discharge: independent ambulation Overall status at discharge: patient is back to baseline Mental Status: mental status grossly normal Speech and Movement: speech and movement normal Mood: congruent mood Affect: normal affect Quality:SDOH Health Related Social Needs: Health related social needs food insecurity, transpo i nsecurity Health related social needs details New baseline funct ioning; not driving at this time, shares concerns about cost of food on fixed income (does not anticipate returning to [employer]), especially healthy food recommended by information director. Health related social needs details: New baseline functioning; not driving at this time, shares concerns about cost of food on fixed income (does not anticipate returning to [employer]), especially healthy food r ecommended by information director. Referrals and interventions: JIM, COA: food, custodial planning Exam Const General: cooperative, healthy appearing and comfortable Orientation: alert and oriented x3 Resp Effort & Inspection: normal respiratory effort, no audible wheezes and no cough GI Inspection: normal to inspection Palpation: soft, no guarding and tender Auscultation: normal bowel sounds Psych Mental Status: mental status grossly normal Speech and Movement: speech and movement normal Mood: congruent mood Affect: normal affect DS: Data Vitals/I&O Vitals and I&O: Vital Signs Temperature 36.7 C 08/13/23 09:07 Temperature Source Temporal Artery Scan 08/13/23 09:07 Pulse 74 08/13/23 12:14 Pulse Rhythm Regular 08/10/23 07:25 Pulse 80 08/13/23 12:14 Respiratory Rate 21 08/13/23 12:14 Respiratory Effort Normal, Non-Labored 08/13/23 09:07 Respiratory Depth Normal 08/13/23 09:07 Respiratory Pattern Normal 08/13/23 09:07 Blood Pressure 111/81 08/13/23 12:14 Blood Pressure Mean 91 08/13/23 12:14 Blood Pressure Position Sitting 08/13/23 09:07 Pulse Oximetry 99 08/13/23 12:14 Oxygen Delivery Method Room Air 08/13/23 09:07 Oxygen Flow Rate 0 08/13/23 09:07 Pain Level 0 08/13/23 09:07 Intake & Output 08/12/23 08/13/23 08/13/23 18:59 06:59 18:59 Intake Total 1565 / 2287.5 722.5 / 2287.5 600 / 600 Output Total 1000 / 1500 500 / 1500 Balance 565 / 787.5 222.5 / 787.5 600 / 600 Weight 94 kg Intake: IV 1345 / 2067.5 722.5 / 2067.5 Oral 220 / 220 600 / 600 Output: Gastric Drainage 400 / 400 Left Nare 400 / 400 Urine 600 / 1100 500 / 1100 Other: Urine Color Light Sandra Yellow Urine Appearance Clear Clear Urine Odor Normal Comment No void at this assesment. Voiding Methods Urinal Data Completed and Pending Labs on day of discharge: Labs from last 24 hours 08/13/23 05:33 WBC 9.26 RBC 4.15 L Hgb 11.7 L Hct 36.5 L MCV 88 MCH 28.2 MCHC 32.1 RDW 15.3 H Plt Count 290 MPV 10.2 Sodium 145 Potassium 3.4 L Chloride 110 H Carbon Dioxide 25.9 Anion Gap 9.1 BUN 22 H Creatinine 0.8 Est GFR (CKD-EPI 2020) 93.45 Glucose 101 Calcium 8.5 Preliminary micro results at discharge 08/10/23 16:51 Surgical Culture - Preliminary Peritoneal 08/10/23 16:51 Anaerobic Culture - Preliminary Peritoneal PFSH All Active Problems Tachycardia, paroxysmal (Acute) Gallstone ileus of small intestine (Acute) Hypertension (Chronic) Acute hypokalemia (Acute) Nausea with vomiting (Acute) Reflux esophagitis (Acute) Nausea & vomiting (Acute) Diverticula of colon (Acute) severe. extend over to the transverse colon 08/23 Rectal bleeding (Acute) Impacted cerumen (Acute 12/06/13) Hematoma (Acute 06/18/14) Medical History History of pilonidal cyst Allergic rhinitis Sleep apnea Hyperlipidemia Prediabetes Osteoarthritis Dermatitis of ear canal H/O meningioma of the brain Surgical History (Updated 08/10/23 @ 16:05 by Jovanna Li DO) History of nasal surgery History of colonoscopy (~08/16/20) Social History (Reviewed 08/10/23 @ 16:03 by Jovanna Li, DOUGLAS Smoking/Tobacco Use Status: Former Tobacco Use Quit Date: 04/05/85 Smoking risk assessment performed?: Yes Alcohol Intake: current Alcohol Intake frequency: a few times a week Drug use: Never Substance use type: does not use Housing: house Do you feel safe at home: Yes Do you feel safe in your relationship?: Yes Time Spent with Patient Time Spent with Patient: <45 minutes Time was spent: preparing to see the patient(eg.review tests), obtaining and/or reviewing separately otained hiistory and counseling the patient
--- NOTE | 2023-08-13 15:48 | PGE_ITS ---
Date of Service Date of service: 08/13/23 Time of Service: 07:00 Assessment and Plan Assessment and plan (1) Hypertension: Status: Chronic (2) Tachycardia, paroxysmal: Status: Acute (3) Gallstone ileus of small intestine: Status: Acute Assessment and plan: Postop day 3 exploratory laparotomy for gallstone ileus and extraction of gallstone from the jejunum. Patient is tolerating a regular diet. He is up and walking. Transition to oral pain control PCOS on wound No fever or white count. BERRY has resolved Hypokalemia has resolved Patient is on Invanz day #3 Continue to walk Advance diet to soft (11) Status post exploratory laparotomy: Status: Acute The patient is tolerating a regular diet. His pain is well-controlled on nonnarcotic pain medication. He did move his bowels today. He has PCOS change. On discharge home and follow-up in clinic in 2 weeks time This document was created with voice activated software and may contain errors. 30 mins spent in direct pt care and 20 in non face to face time (4) Diverticula of colon: Status: Acute (5) Sleep apnea: (6) Hyperlipidemia: (7) Prediabetes: Subjective Subjective Interval history since last seen: Interval history since last seen: Pt is doing well. no headaches. No CP or SOB. no productive cough. no dysuria. no leg pain or swelling. Patient is tolerating full liquid diet. He has had multiple bowel movements with no bleeding. He was up walking yesterday and overall is feeling much better. He is not having any fever or chills. We discussed the findings at surgery. Exam Narrative Exam Narrative: PHYSICAL EXAM GENERAL APPEARANCE: Alert, healthy appearance, oriented, x 3,? in no acute distress HYDRATION: Well hydrated HEAD, EYES, EARS, NECK, THROAT: Head is normocephalic, pupils equal, round, reactive to light and accommodation, ocular movement intact, sclera clear and no jaundice. ?Dentition intact. No sore throat.? No jaw pain. No thrush LUNGS: normal respiration/normal chest excursion. ?Clear to auscultation bilaterally. ?No wheeze. ?HEART: Regular rate and rhythm. no murmurs ABDOMEN: soft and non-tender to palpation.? Normal bowel sounds.? Incision is clean dry and intact. Objective Last Vital Signs Temp 36.7 C 08/13/23 09:07 Pulse 74 08/13/23 12:14 Resp 21 08/13/23 12:14 BP 111/81 08/13/23 12:14 Pulse Ox 99 08/13/23 12:14 Laboratory Results - last 24 hr 08/13/23 05:33 WBC 9.26 RBC 4.15 L Hgb 11.7 L Hct 36.5 L MCV 88 MCH 28.2 MCHC 32.1 RDW 15.3 H Plt Count 290 MPV 10.2 Sodium 145 Potassium 3.4 L Chloride 110 H Carbon Dioxide 25.9 Anion Gap 9.1 BUN 22 H Creatinine 0.8 Est GFR (CKD-EPI 2020) 93.45 Glucose 101 Calcium 8.5 PAWSS Have you Been Recently Intoxicated or Drunk Within the Last 30 days?: No Have you Ever Experienced Previous Episodes of Alcohol Withdrawal?: No Have you ever Experienced Withdrawal Seizures?: No Have you ever Experienced Delirium Tremens(DT)s?: No Have you ever undergone Alcohol Rehabilitation Treatment (i.e, inpt ot outpatient treatment programs)?: No Have you ever Experienced Blackouts?: No Have you ever Combined Alcohol with other Downers within the last 90 days?: No Have you ever Combined Alcohol with any other Substance of Abuse during the last 90 days?: No Positive Blood Alcohol level on Presentation? [PCS.BAL]: No Evidence of Increased Autonomic Activity (i.e. HR>120, tremor, sweating, agitation, nausea)?: No Result: 0 Time Spent with Patient Time Spent with Patient: 25-34 minutes Time was spent: preparing to see the patient(eg.review tests), obtaining and/or reviewing separately otained hiistory, ordering medications,tests, procedures, referring, communicating with other health career development counselor, indepentently interpreting results, counseling the patient and care coordination
[2023-08-13] MEDS: ERTAPENEM 1 GM in Normal Saline 50 ML IVPB (17:43)
--- NOTE | 2023-08-13 17:51 | DSE_ITS ---
Date of service: 08/13/23 Time of Service: 18:10 DS: Diagnosis Discharge Diagnosis (1) Hypertension: Status: Chronic (2) Tachycardia, paroxysmal: Status: Acute (3) Gallstone ileus of small intestine: Status: Acute (4) Diverticula of colon: Status: Acute (5) Sleep apnea: (6) Hyperlipidemia: (7) Prediabetes: Discharge Plan Disposition Patient Disposition: Home Condition: Good Discharge Details Reason For Visit: Interactable Nausea/Vomiting,Hypokalemia Admit Date/Time: 08/09/23 07:26 Admit Provider: Alejandro Cueva Attending Provider: Alejandro Cueva Primary Care Provider: Vu Ma Hospital Course Hospital Course: 73 y/o male who was admitted to the hospital for intractable nausea and vomiting was found to have a calcified intraluminal mass in the proximal small bowel. He underwent exploratory laparotomy and was found to have a gallstone ileus. Postoperatively Ananth did very well, his mentation cleared and he had an NG tube in place for 48 hours postop. He was slowly progressed onto a regular diet which he tolerated very well. His pain had been controlled throughout. He does have a daniel dressing over his laparotomy incision which will need to be removed on 08/19. Can completely remove the dressing and throw it in the trash. The green light should be blinking constantly. If the light blinks orange or red, then you will need to reinforce the dressing. If you cannot get it to stop blinking orange or red then just take it off and remove it. He will discharge home later today on a regular diet. Restrictions include no lifting, pushing or pulling greater than 10 pounds. No strenuous bending or twisting. He will need to follow-up in the surgical office in 2 weeks for postop visit. Home Meds and New Rx's Prescriptions: New acetaminophen 325 mg Tablet 650 mg PO Q6H PRN PRNQty: 14 0RF amoxicillin-pot clavulanate 875-125 mg tablet 1 tab PO BID 3 Days Qty: 6 0RF Rx Instructions: start am 08/13 metaxalone 800 mg tablet 800 mg PO QID PRN (Reason: pain (scale score 4-6)) Qty: 40 2RF Rx Instructions: For pain not relieved with Tylenol and ibuprofen tramadol 50 mg tablet 50 mg PO Q4H PRN (Reason: pain (scale score 7-10)) Qty: 10 0RF Rx Instructions: Will cause constipation Continued cetirizine 10 mg tablet 10 mg PO DAILY PRN lisinopril-hydrochlorothiazide 20-25 mg tablet 1 tab PO DAILY multivitamin Tablet 1 tab PO DAILY cholecalciferol (vitamin D3) [Vitamin D3] 25 mcg (1,000 unit) Capsule 25 mcg PO DAILY famotidine [Pepcid] 40 mg tablet 40 mg PO BID Qty: 60 0RF Held ascorbic acid (vitamin C) [Vitamin C] 500 mg Tablet 500 mg PO DAILY Hold Instructions: Resume on 08/27/23. hold for 2 wks. Can cause stomach upset Discontinued ondansetron 4 mg tablet,disintegrating 4 mg PO Q8H PRN (Reason: nausea and vomiting) Qty: 20 0RF metoclopramide HCl [Reglan] 5 mg tablet 5 mg PO QAC Qty: 30 0RF Rx Instructions: administer 30 minutes before meals Discharge Instructions Additional Instructions: Keep an ice bag on the incision. 20 minutes on and 20 minutes off. Ice keeps the swelling down and swelling causes pain. Make sure you wrap the ice pack in a towel and don't apply directly to the skin. -No driving for 1 week or of you are taking narcotic pain medications. -If you have leonardo or sutures in place, they will be removed at your clinic appointment in 7-10 days. [facility] Surgery Clinic: [phone] -Follow-up with Dr. Li/Hammad in 7-10 days. Labs prior to appt. -soft diet: No beef/pork raw vegetables x1 -week. Cooked vegetables are fine. See below -no straining to move bowels -pain meds are very constipating: if you do not move your bowels daily take a dose of OTC Miralax -It is ok to shower. No bathe, soaking, swimming or hot tubs -Once the PCOS comes off, keep wound clean and dry. Wash incision with soap and water daily. Pat dry, don't rub. -Protein supplements daily. You may find that your appetite is smaller. Eat 3-6 small meals throughout the day. It is important to drink lots of water after surgery, 6-10 glasses a day. -If you were given an incentive spirometry (breathing marketing community liaison?), continue to do this 10x/hour while awake. -We do want you up walking, at least 5-6 times per day. This is very important to prevent pneumonia and blood clots. You can climb stairs, take them slowly. -No lifting over 5 pounds. This is very important to avoid developing a hernia in your incision. -You may find that you are very tired after surgery- this is normal. -please do not smoke for a minimum of 72 hours after surgery. -Remove daniel on 08/19. You Can completely remove the dressing and throw it in the trash. The green light should be blinking constantly. If the light blinks orange or red, then you will need to reinforce the dressing. If you cannot get it to stop blinking orange or red then just take it off and remove it. You can take a shower with the PCOS on. You do not have to cover it to shower. -Antibiotics for the next 3 days. Finish all, even if you are feeling good. Yogurt daily to prevent antibiotic diarrhea. ? Pain Management Protocol -Tylenol 1000mg every 6 hours.? Tylenol is an anti-inflammatory. -Ibuprofen 600mg every 6hrs prn pain.? Do not take aspirin while taking this medication.? Take this medication w/ food. Do not take on an empty stomach. -Use ice.? This also helps to keep swelling down *?It is important to take these medications to keep the swelling down.? Swelling is what causes pain. -Skelaxin: muscle relaxant you can take as needed for pain >7. -If none of these medications work then you can take tramadol for pain. Tramadol will make you constipated. - Do NOT strain to move your bowels!? This is like lifting 50#'s.? ?OR- Mirlax daily to prevent constipation. All these medications work in concert together?to produce a symphony of pain control.? You need to take them as a TOGETHER in order to control the pain,?NOT just pick and choose which one you want to take.? There is not one thing that completely controls pain.? AND there are multiple factors that produce the sensation of pain- so no one thing is going to control it. So in order to have a symphony of pain control- you need to use ALL of them together. ? Gastrointestinal Soft Diet Overview Overview What is a gastrointestinal soft diet? This diet is soft in texture, low in fiber, and easy to digest. The goal is to decrease) ?in the bowel that may cause and discomfort. This diet is often used after abdominal surgery or as a transitional diet after flares. Meats & Meat Substitutes ?? Foods Allowed: Chicken, turkey, fish, tender cuts of beef and pork, ground meats, eggs, creamy nut butters, tofu, skinless hot dogs, sausage patties without whole spices ?? Foods to Avoid : Tough, fibrous meats with gristle, meat with casings (hot dogs, sausage, kielbasa), lunch meats with whole spices, shellfish, beans, chunky peanut butter, nuts Fruits and Juices ?? Foods Allowed: Fruit juices without pulp, banana, avocado, applesauce, canned peaches and pears, cooked fruit without the skin/seeds.? Ground or over- cooked fruits.? Fruits ground finely in a ?smoothie?. ?? Foods to Avoid: Juices with pulp, fresh fruit (except banana and avocado), dried fruits, canned fruit cocktail and pineapple, coconut, frozen/thawed berries Vegetables ?? Foods Allowed: Well-cooked or canned vegetables, potatoes without skin, tomato sauces, vegetable juice ?? Foods to Avoid: Raw vegetables, all corn, all mushrooms, stewed tomatoes, potato skins, stir-sandra vegetables, sauerkraut, pickles, olives, all dried beans, peas, and legumes Cereals and Grains ?? Foods Allowed: Low- fiber dry or cooked cereals (less than 2 grams fiber per serving), white rice, pasta, macaroni, or noodles ?? Foods to Avoid: Cereals with nuts, berries, dried fruits, whole grain cereals, bran cereals, granola, brown or wild rice, whole grain pasta Breads and Crackers ?? Foods Allowed: White/refined breads and rolls, plain bagel, toast, plain crackers, zulema crackers ?? Foods to Avoid: Whole grain breads- including white whole grain; bread/ rolls with raisins, nuts or seeds, multi-grain crackers Dairy ?? Foods Allowed: Milk, cheese, yogurt, milkshakes, pudding, ice cream, cottage cheese, sherbet ;?lactose free or low lactose versions if lactose intolerant ?? Foods to Avoid: Dairy product mixed with fresh fruit (except banana), berries, nuts or seeds Desserts ?? Foods Allowed: Plain cake, pudding, custard, ice cream, sherbet, gelatin, fruit whips ?? Foods to Avoid: Any dessert that contains nuts, dried fruits, coconut, or fruits with seeds Herbs and Spices ?? Foods Allowed: All ground spices or herbs, salt ?? Foods to Avoid: Whole spices such as peppercorns, whole cloves, anise seeds, celery seeds, simi, candida seeds, and fresh herbs Snacks/Other Foods ?? Foods Allowed: Sugar, honey, jelly, mayonnaise, mustard, soy sauce, oil, butter, margarine, marshmallows, cookies without dried fruits or nuts, snack chips and pretzels using refined flours ?? Foods to Avoid: Carbonated beverages, jams or jellies with seeds, popcorn After several weeks, slowly start to reintroduce the ?Foods to Avoid? back into your diet unless your doctor has told you otherwise. Try a small portion of one of these foods each day. If it does not bother you within 24 hours, it can be added to your diet. Continue to add new foods in this way. Some people may continue to have food sensitivities and may need to continue to avoid certain foods. If you cannot tolerate a food, avoid that food for a few weeks before you try it again. Guidelines when eating 1.??? Avoid any food that you cannot tolerate or that causes gas, bloating, or stomach pain. 2.??? Make time for your meals. Do not eat while you are in a hurry. Cut your food into small pieces. Chew each bite to a mashed potato consistency. Do not eat when you cannot concentrate on chewing well. 3.??? Drink at least 6-8 cups of fluid per day? h Fluids include: water, coffee, tea, juice, milk, popsicles, soups, gelatin, pudding, ice cream, sherbet, and yogurt. In addition, choose caffeine-free beverages more often, especially if you are having?diarrhea. 4.??? A daily multivitamin may be recommended if diet is limited in amounts or variety of foods. Do not take any herbal supplements without first checking with your doctor. Activity:: Activity as Tolerated Equipment/Supplies:: No Equipment Needed Diet:: Normal Diet Discharge Orders Discharge Orders: Discharge Order (Routine); Ordered 08/13/23 Ordered By: Violeta Dorantes DS: Summary Time Spent with Patient providing and/or coordinating discharge services: Greater than 30 minutes Status at Discharge Functional status at discharge: independent ambulation Overall status at discharge: patient is progressing back to baseline Mental Status: mental status grossly normal Speech and Movement: speech and movement normal Mood: congruent mood Affect: normal affect Quality:SDOH Health Related Social Needs: Health related social needs food insecurity, transpo i nsecurity Health related social needs details New baseline funct ioning; not driving at this time, shares concerns about cost of food on fixed income (does not an ticipate returning to [employer]), especially healthy food recommended by filter tank tender helper head. Health related social needs details: New baseline functioning; not driving at this time, shares concerns about cost of food on fixed income (does not anticipate returning to [employer]), especially healthy food recommended by filter tank tender helper head. Referrals and interventions: JIM, COA: food, snf planning Exam Psych Mental Status: mental status grossly normal Speech and Movement: speech and movement normal Mood: congruent mood Affect: normal affect DS: Data Vitals/I&O Vitals and I&O: Vital Signs Temperature 36.7 C 08/13/23 09:07 Temperature Source Temporal Artery Scan 08/13/23 09:07 Pulse 74 08/13/23 12:14 Pulse Rhythm Regular 08/10/23 07:25 Pulse 80 08/13/23 12:14 Respiratory Rate 21 08/13/23 12:14 Respiratory Effort Normal, Non-Labored 08/13/23 09:07 Respiratory Depth Normal 08/13/23 09:07 Respiratory Pattern Normal 08/13/23 09:07 Blood Pressure 111/81 08/13/23 12:14 Blood Pressure Mean 91 08/13/23 12:14 Blood Pressure Position Sitting 08/13/23 09:07 Pulse Oximetry 99 08/13/23 12:14 Oxygen Delivery Method Room Air 08/13/23 09:07 Oxygen Flow Rate 0 08/13/23 09:07 Pain Level 0 08/13/23 09:07 Intake & Output 08/12/23 08/13/23 08/13/23 23:59 11:59 23:59 Intake Total 1192.5 / 2567.5 240 / 600 360 / 600 Output Total 750 / 1975 500 / 500 Balance 442.5 / 592.5 -260 / 100 360 / 100 Weight 94 kg Intake: IV 972.5 / 2167.5 Oral 220 / 400 240 / 600 360 / 600 Output: Gastric Drainage 400 / 1150 Left Nare 400 / 1150 Urine 350 / 825 500 / 500 Other: Urine Color Light Sandra Yellow Urine Appearance Clear Clear Urine Odor Normal Comment No void at this assesment. Voiding Methods Urinal Data Completed and Pending Labs on day of discharge: Labs from last 24 hours 08/13/23 05:33 WBC 9.26 RBC 4.15 L Hgb 11.7 L Hct 36.5 L MCV 88 MCH 28.2 MCHC 32.1 RDW 15.3 H Plt Count 290 MPV 10.2 Sodium 145 Potassium 3.4 L Chloride 110 H Carbon Dioxide 25.9 Anion Gap 9.1 BUN 22 H Creatinine 0.8 Est GFR (CKD-EPI 2020) 93.45 Glucose 101 Calcium 8.5 Preliminary micro results at discharge 08/10/23 16:51 Surgical Culture - Preliminary Peritoneal 08/10/23 16:51 Anaerobic Culture - Preliminary Peritoneal PFSH All Active Problems Tachycardia, paroxysmal (Acute) Gallstone ileus of small intestine (Acute) Hypertension (Chronic) Acute hypokalemia (Acute) Nausea with vomiting (Acute) Reflux esophagitis (Acute) Nausea & vomiting (Acute) Diverticula of colon (Acute) severe. extend over to the transverse colon 08/23 Rectal bleeding (Acute) Impacted cerumen (Acute 12/06/13) Hematoma (Acute 06/18/14) Medical History History of pilonidal cyst Allergic rhinitis Sleep apnea Hyperlipidemia Prediabetes Osteoarthritis Dermatitis of ear canal H/O meningioma of the brain Surgical History (Updated 08/10/23 @ 16:05 by Jovanna Li DO) History of nasal surgery History of colonoscopy (~08/16/20) Social History Smoking/Tobacco Use Status: Former Tobacco Use Quit Date: 04/05/85 Smoking risk assessment performed?: Yes Alcohol Intake: current Alcohol Intake frequency: a few times a week Drug use: Never Substance use type: does not use Housing: house Do you feel safe at home: Yes Do you feel safe in your relationship?: Yes Time Spent with Patient Time Spent with Patient: <45 minutes Time was spent: preparing to see the patient(eg.review tests), obtaining and/or reviewing separately otained hiistory, ordering medications,tests, procedures, counseling the patient and care coordination
--- NOTE | 2023-08-16 10:32 | PDOC.HHF2F_ITS ---
Home Health Referral Home Health Orders Clinical synopsis of why skilled professionals are needed: s/p exp lap and infectiong Medical diagnosis necessitation home health referral: gallstones ileus Registered Nurse: Check all that apply Assess for exacerbation of medical condition, instruct patient/caregivers on signs and symptoms to report for early detection: Ordered Other: s/p ex lap. no drains Physical Therapist: Check all that apply Increase strength & endurance for safe mobility at home: Ordered To design/establish home maintenance program: Ordered Home safety evaluation and teaching/gait training including stair management (if applicable): Ordered Home Bound Status Assistance of another person (Describe assistance and medical necessity): fatigue and pain Describe why leaving home would require a considerable and taxing effort: Side effects from pain medication (sedation/drowsiness) and Requires frequent rest periods Encounter Date and Reason: I certify that a FTF encounter for this patient was performed on August 16, 2023 and that such encounter was related to the primary reason the patient requires home health services. The encounter was conducted in the following manner: * By me as the certifying physician, CLIMATOLOGY TEACHER, PA or * By an inpatient physician, CLIMATOLOGY TEACHER or PA during an inpatient stay who communicated findings to me, Certification And Authentication I certify that I composed the above information based on my clinical judgment relating to this patient's medical condition and, if applicable, clinical fin dings communicated to me by the NPP or inpatient physician who performed the FTF encounter. Name of Provider that will be monitoring home health services: Jovanna Li
--- NOTE | 2023-08-16 11:58 | PDOC.HHF2F_ITS ---
Home Health Referral Registered Nurse: Check all that apply Assess for exacerbation of medical condition, instruct patient/caregivers on s igns and symptoms to report for early detection: Ordered Other: s/p ex lap. no drains Physical Therapist: Check all that apply Increase strength & endurance for safe mobility at home: Ordered To design/establish home maintenance program: Ordered Home safety evaluation and teaching/gait training including stair management (if applicable): Ordered Home Bound Status Patient has a condition such that leaving home is medically contraindicated (Describe): s/p ex lap Describe why leaving home would require a considerable and taxing effort: Side effects from pain medication (sedation/drowsiness), Requires frequent rest periods and Safety Concerns: describe Encounter Date and Reason: I certify that a FTF encounter for this patient was performed on August 13, 2023 and that such encounter was related to the primary reason the patient requires home health services. The encounter was conducted in the following manner: * By me as the certifying physician, SALES ADMINISTRATOR, PA or * By an inpatient physician, SALES ADMINISTRATOR or PA during an inpatient stay who communicated findings to me, Certification And Authentication I certify that I composed the above information based on my clinical judgment relating to this patient's medical condition and, if applicable, clinical findings communicated to me by the NPP or inpatient physician who performed the FTF encounter. Name of Provider that will be monitoring home health services: Jovanna Li
== END 2023-08-13 19:00 | disposition home or self-care (01) | DRG 982 ==
LOC: ER 07:29 → MS 08:23 → ICU 08-10 17:27
PROVIDERS: Family Medicine; Surgery; Admitting Provider Surgery; Emergency Provider Emergency Medicine Emergency Medical Services; PCP Physician Assistant; Visit Provider Surgery
PROC: 0DCA0ZZ Extirpation of Matter from Jejunum, Open Approach (ICD-10-PCS; CPT 49000; principal; 2023-08-10 16:00)
DX: K80.20 Calculus of gallbladder without cholecystitis without obstruction (principal); N17.9 Acute kidney failure, unspecified; E87.6 Hypokalemia; R11.2 Nausea with vomiting, unspecified; K21.00 Gastro-esophageal reflux disease with esophagitis, without bleeding; I10 Essential (primary) hypertension; I47.9 Paroxysmal tachycardia, unspecified; K57.30 Diverticulosis of large intestine without perforation or abscess without bleeding; R73.03 Prediabetes; E78.5 Hyperlipidemia, unspecified; I49.1 Atrial premature depolarization; I45.10 Unspecified right bundle-branch block; G47.30 Sleep apnea, unspecified
CPT/HCPCS: 44020; 00123; 36415; 71250; 76942; 80048; 80053; 83690; 85027; 88300; 93005; 96361; 96374; 96375; 99222; 99285; J1650; 74019; 74176; 83735; 84484; 85025; 87070; 87075; 87205; 93010; 99223; 99232; C9290; J0131; J0665; J0690; J1335; J2001; J2004; J2060; J2371; J2405; J2470; J2704; J3230; J3480

== ENCOUNTER → 2023-08-10 13:36 | Outpatient (BNVA) | payer MEDICARE, BC, SELFPAY | PROVIDERS: Visit Provider Internal Medicine Cardiovascular Disease ==

== ENCOUNTER 2023-08-19 09:55 | Outpatient (CLI) | payer MEDICARE, BC, SELFPAY ==
[2023-08-19 10:21] LABS: Abs Immature Grans 0.06 10^3/uL (0.0-0.06); Absolute Basophil Count 0.05 10^3/uL (0.0-0.2); Absolute Eosinophil Count 0.15 10^3/uL (0.0-0.7); Absolute Neutrophil Count 4.71 10^3/uL (1.2-6.7); Basophils % 0.7 %; Eosinophils % 2.2 %; HCT 39.9 % (40.0-50.0); HGB 12.6 g/dL (13.5-17.5); Immature Grans % 0.9 %; Lymphocytes % 18.9 %; MCH 28.2 pg (27.0-33.0); MCHC 31.6 % (32.0-36.0); MCV 89 fL (80-95); MPV 10.3 fL (8.0-11.0); Monocytes % 8.7 %; Neutrophils % 68.6 %; Platelet Count 363 10^3/uL (130-400); RBC 4.47 10^6/uL (4.36-5.78); RDW 15.9 % (11.8-14.1); RDW-SD 52.4 fL; WBC 6.87 10^3/uL (4.4-10.8)
[2023-08-19 11:06] LABS: ALT 79 U/L (16-63); AST 30 U/L (15-37); Albumin 3.1 g/dL (3.4-5.0); Alkaline Phosphatase 123 U/L (46-116); Anion Gap 7.4 mmol/L (3-11); BUN 20 mg/dL (7-18); Bilirubin, Total 0.4 mg/dL (0.2-1.0); CO2 30.6 mmol/L (21.0-32.0); Calcium 9.3 mg/dL (8.5-10.1); Chloride 105 mmol/L (98-107); Estimated GFR 79.47 (mL/min/1.73m2); Ferritin 94 ng/mL (26-388); Glucose 153 mg/dL (74-106); Sodium 143 mmol/L (136-145); Total Protein 7.2 g/dL (6.4-8.2)
== END 2023-08-19 09:56 | disposition home or self-care (01) ==
LOC: LBO 09:55
PROVIDERS: PCP Physician Assistant; Visit Provider Surgery
DX: I47.9 Paroxysmal tachycardia, unspecified; K57.30 Diverticulosis of large intestine without perforation or abscess without bleeding; E78.5 Hyperlipidemia, unspecified; R73.03 Prediabetes; G47.30 Sleep apnea, unspecified; E87.6 Hypokalemia; R79.89 Other specified abnormal findings of blood chemistry; K80.00 Calculus of gallbladder with acute cholecystitis without obstruction
CPT/HCPCS: 36415; 80053; 82728; 85025

== ENCOUNTER 2023-08-22 11:23 | Emergency (ER) | payer MEDICARE, BC, SELFPAY ==
[2023-08-22 11:36] VITALS: BP 134/81; PULSE 69; RESP 16; TEMP 37.1; O2SAT 100
[2023-08-22 11:43] VITALS: BP 134/81; PULSE 69; RESP 16; TEMP 37.1; O2SAT 100
--- NOTE | 2023-08-22 11:46 | ED.GENADUL_ITS ---
Discharge Plan Disposition Patient Disposition: Home Condition: Stable Discharge Details Clinical Impression: Hematoma Primary Care Provider: Vu Ma ED Provider: Chai Saucedo Home Meds and New Rx's Prescriptions: Continued cetirizine 10 mg tablet 10 mg PO DAILY PRN lisinopril-hydrochlorothiazide 20-25 mg tablet 1 tab PO DAILY multivitamin Tablet 1 tab PO DAILY ascorbic acid (vitamin C) [Vitamin C] 500 mg Tablet 500 mg PO DAILY Hold Instructions: Resume on 08/27/23. hold for 2 wks. Can cause stomach upset cholecalciferol (vitamin D3) [Vitamin D3] 25 mcg (1,000 unit) Capsule 25 mcg PO DAILY acetaminophen 325 mg Tablet 650 mg PO Q6H PRN PRNQty: 14 0RF Discharge Instructions Additional Instructions: You likely had a hematoma that came out through your incision. Follow-up with your surgeon as scheduled To the emergency department if you feel more ill, have severe abdominal pain or persistent vomiting HPI General Mode of arrival: ambulatory . Date/Time Provider Initiated Documentation: 08/22/23 11:24 . Limitations to Documentation: no limitations . Information obtained by: patient . History of Present Illness 73 year old M presents to the emergency department with the chief complaint of Bleeding from surgical wound, described as mild, Patient abdomen. Patient started experiencing this hour(s) (1) and it has been constant. No relieving factors improve symptom(s), No exacerbating factors reported . Patient notes no other symptoms.; denies fever/chills and nausea/vomiting. Patient did receive the following treatments prior to arrival, none Related Data Home Medications Medication Instructions Recorded Confirmed ascorbic acid (vitamin C) 500 mg 500 mg PO DAILY 11/16/19 08/22/23 tablet (Vitamin C) cetirizine 10 mg tablet 10 mg PO DAILY PRN 11/16/19 08/22/23 cholecalciferol (vitamin D3) 25 25 mcg PO DAILY 11/16/19 08/22/23 mcg (1,000 unit) capsule (Vitamin D3) lisinopril 20 1 tab PO DAILY 11/16/19 08/22/23 mg-hydrochlorothiazide 25 mg tablet multivitamin 1 tab PO DAILY 11/16/19 08/22/23 acetaminophen 325 mg tablet 650 mg (2 x 325 mg) PO Q6H PRN PRN 08/13/23 08/22/23 #14 tabs Previous Rx's Medication Instructions Recorded acetaminophen 325 mg tablet 650 mg (2 x 325 mg) PO Q6H PRN PRN 08/13/23 #14 tabs Allergies Allergy/AdvReac Type Severity Reaction Status Date / Time No Known Allergies Allergy Unverified 08/22/23 11:33 General Stated Complaint: Abd Prob LOTTIE: 3 Review of Systems All systems reviewed & are unremarkable except as noted in HPI and below Constitutional Constitutional: Denies chills, Denies fever(s) and Denies weakness Cardiovascular Cardiovascular: Denies chest pain and Denies dyspnea Respiratory Respiratory: Denies cough and Denies dyspnea Gastrointestinal Gastrointestinal: Denies abdominal pain, Denies nausea and Denies vomiting Musculoskeletal Musculoskeletal: Denies joint swelling Neurologic Neurologic: Denies weakness Exam Const General: no acute distress Orientation: alert HENMT Head: normal to inspection Ears: external ears normal General nose exam: external nose normal Mouth: moist mucous membranes Eyes General: appearance normal, both eyes and all related structures Neck Neck: normal visual inspection Resp Effort & Inspection: normal respiratory effort and able to speak in complete sentences Cardio Rate: regular rate GI Palpation: soft and nontender Skin General skin exam: no rashes or lesions noted Neuro General: patient alert and patient oriented x3 Extrem General: normal to inspection Psych Mental Status: mental status grossly normal Course Vital Signs Vital signs: Vital Signs Temperature 37.1 C 08/22/23 11:36 Pulse 69 08/22/23 11:36 Respiratory Rate 16 08/22/23 11:36 Blood Pressure 134/81 08/22/23 11:36 Pulse Oximetry 100 08/22/23 11:36 Temperature 37.1 C 08/22/23 11:43 Temperature Source Temporal Artery Scan 08/22/23 11:43 Pulse 69 08/22/23 11:43 Respiratory Rate 16 08/22/23 11:43 Respiratory Effort Normal, Non-Labored 08/22/23 11:39 Blood Pressure 134/81 08/22/23 11:43 Blood Pressure Position Sitting 08/22/23 11:43 Pulse Oximetry 100 08/22/23 11:43 Oxygen Delivery Method Room Air 08/22/23 11:43 Oxygen Flow Rate 0 08/22/23 11:43 Pain Level 1 08/22/23 11:43 Medical Decision Making 73-year-old male who earlier this month had a gallstone ileus for which he went under exploratory laparotomy, has been doing well at home, denies any abdominal pain. States that earlier today he had a small bulge at the superior portion of his incision and had bleeding coming from it so came here for evaluation. He is alert and oriented on arrival in no distress and appears well. He has a mid abdomen incision with leonardo in place, no signs of infection, no surrounding erythema, no tenderness. The superior portion has a small amount of serosanguineous bloody material on the padding, no current bleeding. No hernias or palpable abnormalities. Given lack of tenderness and well appearance do not feel any imaging or labs indicated, suspect she had a hematoma which caused the bleeding he reports earlier. He is stable for discharge, advised to follow-up with his surgeon and return precautions given Differential Diagnosis Differential Diagnosis: Hematoma, dehiscence Quality:SDOH Health Related Social Needs: Health related social needs food insecurity, transpo i nsecurity Health related social needs details New baseline funct ioning; not driving at this time, shares concerns about cost of food on fixed income (does not anticipate returning to [place]), especially healthy food recommended by cyber intelligence analyst. PFSH All Active Problems (Updated 08/22/23 @ 11:49 by Chai Saucedo MD) S/P exploratory laparotomy (Acute) Cholelithiasis and acute cholecystitis without obstruction (Acute) Elevated LFTs (Acute) Gallstone ileus (Acute) Tachycardia, paroxysmal (Acute) Hypertension (Chronic) Diverticula of colon (Acute) severe. extend over to the transverse colon 08/23 Rectal bleeding (Acute) Impacted cerumen (Acute 12/06/13) Hematoma (Acute 06/18/14) Medical History (Updated 08/22/23 @ 11:49 by Chai Saucedo MD) Reflux esophagitis History of pilonidal cyst Allergic rhinitis Sleep apnea Hyperlipidemia Prediabetes Osteoarthritis Dermatitis of ear canal H/O meningioma of the brain Surgical History (Updated 08/19/23 @ 11:29 by Jovanna Li DO) History of nasal surgery History of colonoscopy (~08/16/20) Social History Smoking/Tobacco Use Status: Former Tobacco Use Quit Date: 04/05/85 Smoking risk assessment performed?: Yes Alcohol Intake: current Alcohol Intake frequency: a few times a week Drug use: Never Substance use type: does not use Housing: house Do you feel safe at home: Yes Do you feel safe in your relationship?: Yes
== END 2023-08-22 11:56 | disposition home or self-care (01) ==
PROVIDERS: Emergency Provider Emergency Medicine; PCP Physician Assistant
DX: L76.32 Postprocedural hematoma of skin and subcutaneous tissue following other procedure (principal); I10 Essential (primary) hypertension; E78.5 Hyperlipidemia, unspecified; Z87.891 Personal history of nicotine dependence
CPT/HCPCS: 99283

== ENCOUNTER → 2023-08-26 12:49 | Outpatient (BNVA) | payer MEDICARE, BC, SELFPAY | PROVIDERS: PCP Physician Assistant; Referring Provider Physician Assistant; Visit Provider Physical Therapy Assistant | DX: Z48.02 Encounter for removal of sutures (principal) ==

== ENCOUNTER 2023-09-02 11:59 | Outpatient (CLI) | payer MEDICARE, BC, SELFPAY ==
[2023-09-02 08:48] LABS: Absolute Basophil Count 0.04 10^3/uL (0.0-0.2); Absolute Eosinophil Count 0.29 10^3/uL (0.0-0.7); Absolute Monocyte Count 0.54 10^3/uL (0.1-0.8); Absolute Neutrophil Count 2.53 10^3/uL (1.2-6.7); Basophils % 0.8 %; HCT 41.8 % (40.0-50.0); HGB 13.7 g/dL (13.5-17.5); Lymphocytes % 29.2 %; MCHC 32.8 % (32.0-36.0); MCV 88 fL (80-95); MPV 9.7 fL (8.0-11.0); Monocytes % 11.3 %; Neutrophils % 52.7 %; Platelet Count 267 10^3/uL (130-400); RBC 4.73 10^6/uL (4.36-5.78); RDW 15.9 % (11.8-14.1); RDW-SD 52.2 fL
[2023-09-02 09:07] LABS: Hemoglobin A1C 6.1 % (<5.7)
[2023-09-02 09:57] LABS: ALT 26 U/L (16-63); AST 14 U/L (15-37); Albumin 3.5 g/dL (3.4-5.0); Alkaline Phosphatase 100 U/L (46-116); Anion Gap 9.7 mmol/L (3-11); BUN 19 mg/dL (7-18); Bilirubin, Total 0.5 mg/dL (0.2-1.0); CO2 29.3 mmol/L (21.0-32.0); CREATININE 0.9 mg/dL (0.70-1.30); Calcium 9.5 mg/dL (8.5-10.1); Chloride 103 mmol/L (98-107); Estimated GFR 90.18 (mL/min/1.73m2); Ferritin 42 ng/mL (26-388); Glucose 113 mg/dL (74-106); Sodium 142 mmol/L (136-145); Total Protein 7.7 g/dL (6.4-8.2)
[2023-09-02 13:22] LABS: GGT 26 U/L (15-85)
== END 2023-09-02 12:00 | disposition home or self-care (01) ==
LOC: LBO 11:59
PROVIDERS: PCP Physician Assistant; Visit Provider Surgery
DX: I10 Essential (primary) hypertension (principal); R79.89 Other specified abnormal findings of blood chemistry; I47.9 Paroxysmal tachycardia, unspecified; K57.30 Diverticulosis of large intestine without perforation or abscess without bleeding; E78.5 Hyperlipidemia, unspecified; Z98.890 Other specified postprocedural states
CPT/HCPCS: 36415; 80053; 82728; 82977; 83036; 85025

== ENCOUNTER 2023-10-18 09:01 | Outpatient (CLI) | payer MEDICARE, BC, SELFPAY ==
[2023-10-18 09:32] LABS: Abs Immature Grans 0.01 10^3/uL (0.0-0.06); Absolute Basophil Count 0.04 10^3/uL (0.0-0.2); Absolute Eosinophil Count 0.16 10^3/uL (0.0-0.7); Absolute Lymphocyte Count 1.43 10^3/uL (1.2-3.4); Absolute Monocyte Count 0.59 10^3/uL (0.1-0.8); Absolute Neutrophil Count 3.51 10^3/uL (1.2-6.7); Basophils % 0.7 %; Eosinophils % 2.8 %; HCT 45.4 % (40.0-50.0); Immature Grans % 0.2 %; Lymphocytes % 24.9 %; MCH 29.3 pg (27.0-33.0); MCV 89 fL (80-95); Monocytes % 10.3 %; Neutrophils % 61.1 %; Platelet Count 228 10^3/uL (130-400); RBC 5.12 10^6/uL (4.36-5.78); RDW 15.6 % (11.8-14.1); RDW-SD 50.8 fL; WBC 5.74 10^3/uL (4.4-10.8)
[2023-10-18 09:48] LABS: ALT 16 U/L (16-63); AST 14 U/L (15-37); Albumin 3.5 g/dL (3.4-5.0); Alkaline Phosphatase 88 U/L (46-116); Anion Gap 7.6 mmol/L (3-11); BUN 20 mg/dL (7-18); Bilirubin, Total 0.59 mg/dL (0.2-1.0); CO2 28.4 mmol/L (21.0-32.0); CREATININE 0.9 mg/dL (0.70-1.30); Calcium 9.4 mg/dL (8.5-10.1); Chloride 108 mmol/L (98-107); Estimated GFR 90.18 (mL/min/1.73m2); Glucose 108 mg/dL (74-106); Potassium 4.1 mmol/L (3.5-5.1); Sodium 144 mmol/L (136-145); Total Protein 7.4 g/dL (6.4-8.2)
== END 2023-10-18 09:02 | disposition home or self-care (01) ==
PROVIDERS: PCP Physician Assistant; Visit Provider Surgery
DX: I10 Essential (primary) hypertension (principal); I47.9 Paroxysmal tachycardia, unspecified; R79.89 Other specified abnormal findings of blood chemistry; K80.00 Calculus of gallbladder with acute cholecystitis without obstruction; K62.5 Hemorrhage of anus and rectum; K57.30 Diverticulosis of large intestine without perforation or abscess without bleeding; K56.3 Gallstone ileus; T14.8XXA Other injury of unspecified body region, initial encounter; E78.5 Hyperlipidemia, unspecified; R73.03 Prediabetes; K21.00 Gastro-esophageal reflux disease with esophagitis, without bleeding; Z98.890 Other specified postprocedural states
CPT/HCPCS: 36415; 80053; 85025

== ENCOUNTER 2023-11-22 01:32 | Outpatient (CLI) | payer MEDICARE, BC, SELFPAY ==
--- OUTSIDE RECORDS SUMMARY | 2023-11-23 01:35 | XMS_ITS | Encounter Summary ---
Author Organization [facility] Address [address] [place] [address] Care Team Providers Care Director Career Name Role Phone Unknown, Provider Primary Care Provider Encounter Details Date Type Department Care Team (Late st Contact Info) Description 08/11/2023 Lab Requisition [facility] Pathology & Laboratory Medicine - [facility] [address] [place] [address] Jovanna Li, DO [address] [place], [place] [address] Diverticulosis of large intestine without perforation or abscess without bleeding; Paroxysmal tachycardia, unspecified (HCC-CMS); Gallstone ileus (HCC-CMS); Essential (primary) hypertension; Gastro-esophageal reflux disease with esophagitis, without bleeding; Nausea with vomiting, unspecified; Hypokalemia Social History Tobacco Use Types Packs/Day Years Used Date Smoking Tobacco: Never Assessed Sex and Gender Information Value Date Recorded Sex Assigned at Not on file Gender Identity Not on file Sexual Orientation Not on file documented as of this encounter Plan of Treatment Not on file documented as of this encounter Procedures Procedure Name Priority Date/Time Associated Diagnosis Comments SURGICAL PATHOLOGY Today 08/10/2023 16 :55 EDT Paroxysmal tachycardia, unspecified (HCC-CMS) Gallstone ileus (HCC-CMS) Essential (primary) hypertension Gastro-esophageal reflux disease with esophagitis, without bleeding Nausea with vomiting, unspecified Hypokalemia Diverticulosis of large intestine without perforation or abscess without bleeding documented in this encounter Results * SURGICAL PATHOLOGY (08/10/2023 16:55 EDT) Note to Patient The following pathology results have been interpreted by your pathologist and may be available to you before your health provider has had the opportunity to review them. Please allow time for your provider to receive these results and explore management options, if applicable. 08/13/2023 11:47 [facility] Final Diagnosis A. GALLSTONE, REMOVAL: - Pigment gallstone, consistent with clinical history of cholelithiasis. Gross only. 08/13/2023 11:47 [facility] Attestation By the signature below, the attending physician certifies that they have 1) personally conducted a gross and/or microscopic examination of the described specimen(s), and/or personally interpreted the results of laboratory testing of the described specimen(s), and 2) personally rendered or confirmed the above diagnosis. 08/13/2023 11:47 [facility] at 1147 Clinical History Gallstone 08/13/2023 11:47 [facility] Gross Description A. Received in formalin labelled with proper patient identification (initials R, M) and gallstone is a single dark green-black firm gallstone (5.1 x 4.0 x 3.6 cm) with a rough granular outer surface and a focal area (2.5 cm in greatest dimension) that is rosado-brown, smooth and flattened. No soft tissue is present. No sections submitted, gross examination only. AYAKA MCKEON([facility]) 08/11/2023 15:44 08/13/2023 11:47 [facility] Performing Lab [facility] 08/13/2023 11:47 [facility] Scanned Images 08/13/2023 11:47 [facility] Tissue STONE - BODY MATERIAL / Unknown 08/10/2023 16:55 EDT 08/11/2023 7:46 EDT Jovanna Li DO PATHOLOGY ORDERABLES [facility] [address] [place], [place] [address] documented in this encounter Visit Diagnoses Diagnosis Diverticulosis of large intestine without perforation or abscess without bleeding Diverticulosis of colon (without mention of hemorrhage) Paroxysmal tachycardia, unspecified (HCC-CMS) Paroxysmal tachycardia, unspecified Gallstone ileus (HCC-CMS) Gallstone ileus Essential (primary) hypertension Unspecified essential hypertension Gastro-esophageal reflux disease with esophagitis, without bleeding Nausea with vomiting, unspecified Hypokalemia Hypopotassemia documented in this encounter Care Teams Director Career Relationship Specialty Start Date End Date Unknown, Provider, PCP - General 07/05/23 documented as of this encounter
--- OUTSIDE RECORDS SUMMARY | 2023-11-23 01:35 | XMS_ITS | Encounter Summary ---
Author Organization [facility] Address [facility] [place] [address] Care Team Providers Care Network Support Engineer Name Role Phone Unavailable Primary Care Provider Unavailabl e Reason for Visit * Reason Comments Results Encounter Details Date Type Department Care Team (Late st Contact Info) Description 07/02/2020 10:00 AM EDT TH Visit (TeleHealth) Neurosurgery at [facility] [place] [address] Norberto Gomez MD [facility] [address] [place] [address] Meningioma Social History Tobacco Use Types Packs/Day Years Used Date Smoking Tobacco: Never Assessed Sex and Gender Information Value Date Recorded Sex Assigned at Not on file Gender Identity Not on file Sexual Orientation Not on file documented as of this encounter Progress Notes * Norberto Gomez MD - 07/02/2020 10:00 AM EDT I do spoke with Ananth on the phone. He is a 70-year-old male that was found to have a left frontal meningioma as part of a work-up for a trauma. He has remained asymptomatic from this. On repeat imaging, I do not see a significant change in the overall size or dimensions of the mass.There is minimal flair abnormality around the lesion. We will plan on a follow-up MRI scan in 1 time or sooner if symptoms arise documented in this encounter Plan of Treatment Not on file documented as of this encounter Visit Diagnoses Diagnosis Meningioma Benign neoplasm of cerebral meninges documented in this encounter
--- OUTSIDE RECORDS SUMMARY | 2023-11-23 01:35 | XMS_ITS | Encounter Summary ---
Author Organization [facility] Address [facility] [place] [place] [address] Care Team Providers Care Mechanic Chief Name Role Phone Unavailable Primary Care Provider Unavailabl e Encounter Details Date Type Department Care Team (Late st Contact Info) Description 06/11/2020 Ancillary Procedure [place] [address] Norberto Gomez MD [facility] [place] [place] [address] Social History Tobacco Use Types Packs/Day Years Used Date Smoking Tobacco: Never Assessed Sex and Gender Information Value Date Recorded Sex Assigned at Not on file Gender Identity Not on file Sexual Orientation Not on file documented as of this encounter Plan of Treatment Not on file documented as of this encounter Procedures Procedure Name Priority Date/Time Associated Diagnosis Comments FILM LIBRARY STORAGE ONLY MR HEAD Routine 06/11/2020 12:00 AM EST documented in this encounter Results * Film Library- Storage Only MR Head (06/11/2020 12:00 AM EST) Narrative [facility] - 06/14/2020 7:39 PM EST This exam is auto-finalizing. It's purpose is for storage only. Norberto Gomez MD IMG FILM LIBRARY ORD ERABLES [place], [place] documented in this encounter Visit Diagnoses Not on filedocumented in this encounter
--- OUTSIDE RECORDS SUMMARY | 2023-11-23 01:35 | XMS_ITS | Clinical Summary ---
Author Organization [facility] [place] [address] Care Team Providers Care Marketing Campaign Analyst Name Role Phone Unavailable Primary Care Provider Unavailabl e Social History Tobacco Use Types Packs/Day Years Used Date Smoking Tobacco: Never Assessed Sex and Gender Information Value Date Recorded Sex Assigned at Not on file Gender Identity Not on file Sexual Orientation Not on file Plan of Treatment Health Maintenance Due Date Last Done Comments CT Colonography 1950 Colonoscopy 1950 Colorectal Cancer Screening 1950 FIT DNA 1950 FIT 1950 Sigmoidoscopy (10 year) with FIT yearly 1950 Sigmoidoscopy 1950 Hepatitis C Screening 02/25/1968 Lipid Screening 02/25/1968 Tdap adult 1969 Tetanus vaccine 1969 Zoster vaccine (1 of 2) 02/25/2000 Advance Directive 2005 Pneumoccocal Vaccine: 65+ (1 of 1 - PCV) 2015 Covid-19 Vaccine (1 - season) 2022 Influenza (Flu) vaccine (1 o f 1 - Influenza standard series) 12/05/2023
--- OUTSIDE RECORDS SUMMARY | 2023-11-23 01:35 | XMS_ITS | Encounter Summary ---
Author Organization [facility] Address [address] [place] [address] Care Team Providers Care Log Chipper Operator Name Role Phone Unknown, Provider Primary Care Provider Encounter Details Date Type Department Care Team (Late st Contact Info) Description 09/27/2020 Lab Requisition [facility] Pathology & Laboratory Medicine - [facility] [address] [place] [address] Outr Resulting Lab, Provider Social History Tobacco Use Types Packs/Day Years Used Date Smoking Tobacco: Never Assessed Sex and Gender Information Value Date Recorded Sex Assigned at Not on file Gender Identity Not on file Sexual Orientation Not on file documented as of this encounter Plan of Treatment Not on file documented as of this encounter Procedures Procedure Name Priority Date/Time Associated Diagnosis Comments ZZCOVID-19 TEST [facility] PCR Today 09/26/2020 10:55 EDT COVID-19 TESTING Routine 09/26/2020 10:5 5 EDT documented in this encounter Results * COVID-19 TEST [facility] PCR (09/26/2020 10:55 EDT) Swab ENTIRE NASOPHARYNX / Unknown 09/26/2020 10:55 EDT 09/27/2020 15:52 EDT Provider Outr Resulting Lab MICROBIOLOGY - GENERAL ORDERABLES [facility] [address] [place] [address] * COVID-19 TESTING (09/26/2020 10:55 EDT) COVID-19 rt-PCR Result Negative Negative 09/28/2020 14:09 EDT [facility] Comment: This test has not been FDA cleared or approved. This test has been authorized by FDA under an EUA for use by authorized laboratories. This test has been authorized only for detection of nucleic acid from 2019-nCoV, not for any other viruses or pathogens. This test is only authorized for the duration of the declaration that circumstances exist justifying the authorization of emergency use of in vitro diagnostic tests for detection and/or diagnosis of 2019-nCoV under section 564(b)(1) of Act, 21 U.S.C ?? 360bbb-3(b) (1), unless the authorization is terminated or revoked sooner. Negative results do not preclude 2019-nCoV infection and should not be used as the sole basis for treatment or other patient management decisions. Negative results must be combined with clinical observations, patient history, and epidemiological information. This test was developed and its performance characteristics determined by [facility]. It has not been cleared or approved by the US Food and Drug Administration. FDA does not require this test to go through premarket FDA review. This test is used for clinical purposes. It should not be regarded as investigational or for research. This laboratory is certified under the Clinical Laboratory Improvement Amendments (CLIA) as qualified to perform high complexity clinical laboratory testing. This test is based on the CDC COVID-19 Emergency Use Authorization (EUA) assay, with minor modification as defined by the FDA Performed on the MODLOFTo 7 Flex RT-PCR System. Performing Lab [facility] 09/28/2020 14:09 EDT [facility] Swab 09/26/2020 10:5 5 EDT 09/27/2020 15:52 EDT Provider Outr Resulting Lab MICROBIOLOGY - GENERAL ORDERABLES [facility] [address] [place] [address] documented in this encounter Visit Diagnoses Not on filedocumented in this encounter Care Teams Log Chipper Operator Relationship Specialty Start Date End Date Unknown, Provider, PCP - General 07/05/23 documented as of this encounter
--- OUTSIDE RECORDS SUMMARY | 2023-11-23 01:35 | XMS_ITS | Clinical Summary ---
Author Organization [facility] Address [address] [place] [address] Care Team Providers Care Plant Wrapper Name Role Phone Unknown, Provider Primary Care Provider Social History Tobacco Use Types Packs/Day Years Used Date Smoking Tobacco: Never Assessed Sex and Gender Information Value Date Recorded Sex Assigned at Not on file Gender Identity Not on file Sexual Orientation Not on file Plan of Treatment Health Maintenance Due Date Last Done Comments Hepatitis C Screen 1950 RSV Immunization ( o r 60+ Years) (1 - 1-dose 60+ series) 2010 Fall Risk Screening 2015 COVID-19 Vaccine (2022- season) 2022 Care Teams Plant Wrapper Relationship Specialty Start Date End Date Unknown, Provider, PCP - General 07/05/23
--- OUTSIDE RECORDS SUMMARY | 2023-11-23 01:35 | XMS_ITS | Referral Summary ---
Author Organization [facility] Address [address] [place] [address] Care Team Providers Care Rigging Worker Name Role Phone Unknown, Provider Primary Care Provider Social History Tobacco Use Types Packs/Day Years Used Date Smoking Tobacco: Never Assessed Sex and Gender Information Value Date Recorded Sex Assigned at Not on file Gender Identity Not on file Sexual Orientation Not on file Plan of Treatment Not on file Care Teams Rigging Worker Relationship Specialty Start Date End Date Unknown, Provider, PCP - General 07/05/23
--- OUTSIDE RECORDS SUMMARY | 2023-11-23 01:35 | XMS_ITS | Encounter Summary ---
Author Organization [facility] Address [facility] [place] [address] Care Team Providers Care Healthcare Management Name Role Phone Unavailable Primary Care Provider Unavailabl e Encounter Details Date Type Department Care Team (Late st Contact Info) Description 11/16/2019 1:30 PM EDT Ancillary Procedure Radiology Library at [facility] [address] Marcial Lai MD [facility] [place] [place] [address] Social History Tobacco Use Types Packs/Day Years [...] Associated Diagnosis Comments FILM LIBRARY STORAGE ONLY CT HEAD AND SPINE Routine 11/16/2019 1:26 PM EDT documented in this encounter Results * Film Library- Storage Only CT Head And Spine (11/16/2019 1:26 PM EDT) Narrative [facility] - 11/16/2019 1:26 PM EDT This exam is auto-finalizing. It's purpose is for storage only. Marcial Lai MD IMG FILM LIBRARY ORD ERABLES [place], [place] documented in this encounter Visit Diagnoses Not on filedocumented in this encounter
--- OUTSIDE RECORDS SUMMARY | 2023-11-23 01:35 | XMS_ITS | Encounter Summary ---
Author Organization [facility] Address [facility] [place] [address] Care Team Providers Care School Office Assistant Name Role Phone Unavailable Primary Care Provider Unavailabl e Encounter Details Date Type Department Care Team (Late st Contact Info) Description 11/16/2019 1:35 PM EDT Ancillary Procedure [place] [address] Marcial Lai MD [facility] [place] [address] Social History Tobacco Use Types Packs/Day Years [...] Diagnosis Comments FILM LIBRARY STORAGE ONLY CT CHEST Routine 11/16/2019 1:26 PM EDT documented in this encounter Results * Film Library- Storage Only CT Chest (11/16/2019 1:26 PM EDT) Narrative [facility] - 11/16/2019 1:26 PM EDT This exam is auto-finalizing. It's purpose is for storage only. Marcial Lai MD IMG FILM LIBRARY ORD ERABLES [place], [place] documented in this encounter Visit Diagnoses Not on filedocumented in this encounter
--- OUTSIDE RECORDS SUMMARY | 2023-11-23 01:35 | XMS_ITS | Encounter Summary ---
Author Organization [facility] [place] [address] Care Team Providers Care Md Pediatric Allergist Name Role Phone Unavailable Primary Care Provider Unavailabl e Encounter Details Date Type Department Care Team (Late st Contact Info) Description 12/05/2019 [place] [phone] Funmi Manjarrez Social History Tobacco Use Types Packs/Day Years Used Date Smoking Tobacco: Never Assessed Sex and Gender Information Value Date Recorded Sex Assigned at Not on file Gender Identity Not on file Sexual Orientation Not on file documented as of this encounter Miscellaneous Notes * Telephone Encounter - Rachel Landry - 06/18/2020 5:01 PM EDT MRI from 06/11 in edh updated appt notes for 07/02 TOV scheduled with ABIMBOLA, closing encounter * Telephone Encounter - Funmi Manjarrez - 06/14/2020 3:23 PM EST AB sending fax for imaging at [facility] = 06/11/20 Scheduled next available = 07/02 Send note to ABIMBOLA to inform imaging is in eDH when loaded Postpone until 06/18/20 * Telephone Encounter - Andra Wright - 06/14/2020 2:53 PM EST Pt completed MRI on 06/11/20, faxed push request to [facility]. * Telephone Encounter - AdrianaAndra Brunilda - 05/27/2020 5:31 PM EST No authorization required. Faxed order and demos to [facility] ([phone]). Postponing 1 week to allow time for scheduling. * Telephone Encounter - Andra Wright - 12/07/2019 5:57 PM EDT Postponing closer to expected date in order to PA - if needed * Telephone Encounter - Funmi Manjarrez - 12/05/2019 3:25 PM EDT Patient needs f/u appointment(s): With [facility] on/around June 2020 6m TOV, s/p Meningioma, MRI Brain wwo [place] prior ~~~~~~~~~~~~~~~~~~~~~~~~~~~~~~~~~~~~~~~~~~~~~~~~~~~~~~~ Norberto Gomez MD Sent: WedDecember 05, 2019 10:34 AM To: P [facility] Neuro[facility] [place] ?? Message MRI brain +/- 6 months at [place]. ??I can call with results * Telephone Encounter - Funmi Manjarrez - 12/05/2019 3:25 PM EDT ----- Message from Norberto Gomez MD sent at 12/05/2019 10:34 AM EDT ----- MRI brain +/- 6 months at [place]. I can call with results documented in this encounter Plan of Treatment Not on file documented as of this encounter Visit Diagnoses Not on filedocumented in this encounter
--- OUTSIDE RECORDS SUMMARY | 2023-11-23 01:35 | XMS_ITS | Continuity of Care Document ---
Author Organization MD - [facility] [place] [address] Assessment No assessment recorded. Plan of Treatment Reminders Order Date Submit Date Provider Last Modified By Organization Details Last Modified Time Details Appointments Follow Up 30 2023 08:00A M Not available Not available Not available Lab HbA1c (hemoglob in A1c), blood [address] [facility] (Registration ), [address] [place] [address] [place], [address], 09/15/2023 11:41:40 CMP, serum or plasma [address] [facility] (Registration ), [address] [place] [address] [place], [address], 09/15/2023 11:41:29 lipid panel, serum [address] [facility] (Registration ), [address] [place] [address] [place], [address], 09/15/2023 11:41:35 Referral None recorded. Procedures None recorded. Surgeries None recorded. Imaging None recorded. Medication Orders lisinopri l 10 mg-hydroc hlorothia zide 12.5 mg tablet 2023 024 [facility], [address], [place], [address], 10/11/2023 16:26:28 Patient TargetsNo targets recorded. Patient Instructions Encounter Date Encounter Id Patient Instructions Last Modified By Organization Details Last Modified Time 09/15/2023 [id number] Ananth - we will lower your blood pressure medication to 10/12.5 mg daily. You can cut the current tablets in half. We will check fasting blood work just prior to followup in 3 months. anabela Not available 09/15/2023 10:27:02 Reason for Referral None Reported. Problems Name Status Onset Date Resolution Date Notes Provider Name and Address Organization Details Recorded Time Essential hypertension Active 195903/26/2021 - Comments only - Олег Haque MD - BP reasonable for age but not ideal. Adherence not 100%. try qhs dosing. BMP today Problem Code: I10; Problem Code Type: ICD-10; Not Available [facility] 3 05:55:59 Obstructive sleep apnea syndrome Active 200803/26/2021 - Comments only - Олег Haque MD - Managing with position, didn't tolerate CPAP Problem Code: G47.33; Problem Code Type: ICD-10; Not Available [facility] 3 05:55:59 Hyperlipidemi a Active 201403/26/2021 - Comments only - Олег Haque MD - He doesn't want a statin, but will repeat lipids to give feedback/dilan jerardo on diet. Problem Code: E78.5; Problem Code Type: ICD-10; Not Available [facility] 3 05:56:00 Allergic rhinitis Active 2014 Problem Code: J30.9; Problem Code Type: ICD-10; Not Available [facility] 3 05:56:00 Adult health examination Active 201403/26/2021 - Comments only - Олег Haque MD - His preventive care is UTD. Had colonoscopy, diverticulosi s, discussed diet, fiber is good. See below BMI is elevated, we discussed diet and exercise Problem Code: Z00.00; Problem Code Type: ICD-10; Not Available [facility] 3 05:56:00 Prediabetes Active 201603/26/2021 - Comments only - Олег Haque MD - A1c up slightly with weight. Discussed diet/activity Problem Code: R73.03; Problem Code Type: ICD-10; Not Available [facility] 3 05:56:00 Osteoarthriti s Active 201703/11/2020 - Comments only - Олег Haque MD - States glucosamine helping, discussed exercise. Problem Code: M19.90; Problem Code Type: ICD-10; Not Available [facility] 3 05:56:00 Body mass index 30+ - obesity Active 2018 Problem Code: Z68.30; Problem Code Type: ICD-10; Not Available [facility] 3 05:56:00 Acute non-infective otitis externa Active 2018 Problem Code: H60.599; Problem Code Type: ICD-10; Not Available [facility] 3 05:56:00 Benign neoplasm of cerebral meninges Active 201903/11/2020 - Comments only - Олег Haque MD - Had MRI and neurosurgery consult at [facility]. We need record. He denies symtoms. F/u scan plannin in June. Problem Code: D32.0; Problem Code Type: ICD-10; Not Available [facility] 3 05:56:01 Blood glucose outside reference range Completed 201612/30/2022 05/26/2017 - Comments only - Олег Haque MD - Denies symptoms, A1c reassuring Problem Code: R73.09; Problem Code Type: ICD-10; Not Available [facility] 3 05:56:06 Fever Completed 202003/26/2021 Problem Code: R50.9; Problem Code Type: ICD-10; Not Available [facility] 3 05:56:07 Periodic limb movement disorder Completed 200811/06/2014 Not Available [facility] 3 05:56:10 Hypertensive disorder Completed Not Available [facility] 3 05:56:12 Screening for malignant neoplasm of colon Completed 201803/26/2021 Problem Code: Z12.11; Problem Code Type: ICD-10; Not Available [facility] 3 05:56:16 Anxiety disorder Active 202201/06/2023 - Comments only - Олег Haque MD - Ananth's symptoms are c/w JADE with manifestation s of GI distress and possibly complicated by his lactose intolerance. Given this association is chronic I don't think GI work up is warrented. Discussed treatment recommendatio ns, including SSRI and therapy. He would like to consider therapy. He isn't sure about SSRI but would like the Rx and consider. Get lytes/TSH with labs. Problem Code: F41.9; Problem Code Type: ICD-10; Not Available [facility] 4 05:37:26 Intolerance to lactose Active 2022 Problem Code: E73.9; Problem Code Type: ICD-10; Not Available [facility] 4 05:37:26 Diarrhea Active 2022 Problem Code: R19.7; Problem Code Type: ICD-10; Not Available [facility] 4 05:37:26 Gallstone ileus Active 2023 s/p gallstone extraction 08/2023 GANESH GONZALEZ PA-C [facility] [address], [place], [address] , [facility] 4 15:39:56 Problem Notes None recorded. Medical Equipment None Reported. Allergies No known drug allergies Medications Name Sig Start Date Stop Date Status Note LastModified by Organization Details LastModified Time Vitamin C 500 mg tablet take 1 tablet daily 2016 active Not Available Not Available Not Avai lable cetirizine 10 mg tablet Take 1 tablet by mouth once a day for allergie s as needed 2022 active Not Available Not Available Not Avai lable citalopram 10 mg tablet Take 1 tablet by mouth once a day 09/14 completed Not Available Not Available Not Available lisinopril 20 mg tablet Take 1 by mouth daily 2014 active needs labs done for refill Not Available Not Available Not Available famotidine 40 mg tablet TAKE 1 TABLET BY MOUTH TWICE DAILY 09/14 completed Not Available Not Available Not Available Deras Concentrat e oral syrup one po daily 2017 active Not Available Not Available Not Avai lable tramadol 50 mg tablet TAKE 1 TABLET BY MOUTH EVERY 4 HOURS NEEDED FOR PAIN (PAIN SCALE 7-10) WILL CAUSE CONSTIPA TION 09/14 completed Not Available Not Available Not Available potassium 99 mg tablet Take 1 tablet every day by oral route. active Not Available Not Available No t Available metoclopra mide 5 mg tablet TAKE 1 TABLET BY MOUTH BEFORE MEALS, ADMINIST ER 30 MINUTES BEFORE MEALS 09/14 completed Not Available Not Available Not Available lisinopril 10 mg tablet Take 1 by mouth daily 11/06 completed Not Available Not Available Not Available lisinopril 20 mg-hydroch lorothiazi de 25 mg tablet Take 1 tablet by mouth every evening 12/31 completed needs labs done for refill Not Available Not Available Not Available aspirin 81 mg tablet 1TAB qd 07/17 completed Not Available Not Available Not Available hydrochlor othiazide 25 mg tablet Take 1 by mouth daily 05/25 completed Not Available Not Available Not Available Aspir-81 mg tablet,del ayed release take 1 tab daily 03/11 completed Not Available Not Available Not Available lisinopril 10 mg-hydroch lorothiazi de 12.5 mg tablet Take 1 tablet every day by oral route. active Not Available Not Available No t Available ondansetro n 4 mg disintegra ting tablet DISSOLVE 1 TABLET IN MOUTH EVERY 8 HOURS NEEDED FOR NAUSEA OR VOMITING 09/14 completed Not Available Not Available Not Available glucosamin e-chondroi tin 500 mg-400 mg capsule 1 tab daily 2018 active Not Available Not Available Not Avai lable amoxicilli n 875 mg-potassi um clavulanat e 125 mg tablet TAKE 1 TABLET BY MOUTH TWICE DAILY FOR 3 DAYS START MORNING OF 08/13 completed Not Available Not Available Not Available multivitam in active Not Available Not Available Not Available Glucosamin e-Chondroi ti Complex 1 tablet once a day 09/14 completed Not Available Not Available Not Available cholecalci ferol (vitamin D3) 25 mcg (1,000 unit) tablet once a day 2016 active Not Available Not Available Not Avai lable Vitals Date Recorded Body height Body mass index (BMI) Body weight Body temperature Oxygen saturation Oxygen saturation in Arterial blood by Pulse oximetry Respiratory rate Heart rate Systolic blood pressure Diastolic blood pressure Provider Name and Address Organization Details Last Updated DateTime 4 186.436 cm 26.8 kg/m2 10989.4 4 g 98.4 [degF] 99 % 99 % 16 /min 70 /min 106 mm[Hg] 62 mm[Hg] GAL ELLIOTT RN MD - [facility]. 10:04:32 Social History None recorded. Functional Status None recorded. Mental Status None recorded. Family History Relationship Description Onset Age of this Age Resolved Age Notes Mother Family history of Hypertension Notes:*Problem: Mother: CLL, ? at age 83 Father: Dwindles, ? at 92 Medical History No medical history recorded. Immunizations Vaccine Type Date Status Provider Name and Address Organization Details Recorded Time Tdap 05/13/2010 completed Not Available [facility] 05:04:28 Tdap 05/20/2020 completed Not Available [facility] 05:04:28 Pneumococcal conjugate PCV 13 05/25/2016 completed Not Available [facility] 02/12/2023 05:04:29 Td(adult) unspecified formulation 10/02/2004 completed Not Available [facility] 02/12/2023 05:04:30 Influenza, split virus, trivalent, preservative 12/31/2014 completed Not Available [facility] 02/12/2023 05:04:31 Influenza, split virus, quadrivalent, PF 01/12/2019 completed Not Available [facility] 02/12/2023 05:04:32 Influenza, split virus, quadrivalent, preservative 12/22/2017 completed Not Available [facility] 02/12/2023 05:04:32 Influenza, split virus, quadrivalent, preservative 12/28/2016 completed Not Available [facility] 02/12/2023 05:04:32 Influenza, high-dose, quadrivalent, PF 02/12/2021 completed Not Available [facility] 02/12/2023 05:04:33 COVID-19, mRNA, LNP-S, PF, 100 mcg/0.5mL dose or 50 mcg/0.25mL dose 06/03/2020 completed Not Available [facility] 02/12/2023 05:04:34 SARS-COV-2 (COVID-19) vaccine, UNSPECIFIED 07/11/2020 completed Not Available [facility] 02/12/2023 05:04:35 pneumococcal polysaccharide PPV23 05/26/2017 completed Not Available [facility] 2022 05:04:36 influenza, unspecified formulation 12/11/2013 completed Not Available [facility] 02/12/2023 05:04:37 influenza, unspecified formulation 01/03/2020 completed Not Available [facility] 02/12/2023 05:04:37 influenza, unspecified formulation 02/11/2013 completed Not Available [facility] 02/12/2023 05:04:38 Past Encounters Encounter ID Performer Location Encounter Start Date Encounter Closed Date Diagnosis/Indication Diagnosis SNOMED-CT Code [id number] GANESH GONZALEZ PA-C [facility] [address] [place] [address] 09/15/2023 09:49:44 09/15/2023 10:49:38 Essential hypertension 88027136 Hyperlipidemia 99136895 Prediabetes 626389044 Gallstone ileus 34456605 Health Concerns Section Related Observation LastModified by Organization Detai ls LastModified Time None Recorded Concern Status LastModified by Organization Details LastModified Time None Recorded Payers Encounter Date Sequence Insurance Name Policy Number Policy Ramirez Covered Member ID Ramirez Member ID Guarantor Name 09/15/2023 2 [place] [facility] Ananth Ann [id number] Ananth Ann 09/15/2023 1 [place] [employer] Ananth Ann [id number] Ananth Ann Notes Date Note Type Note Provider Name and Address Organization Details Recorded Time 09/15/2023 text/html HPI Notes: Ananth is here for hospital followup following removal of gallstone from the small bowel. He had gallstone ileus. This was in early August. He is feeling much better. Incisions are slowly healing. His appetite is back to normal. Bowels are moving well. He has follow-up with a general surgeon later this summer with a CT scan prior. Gallbladder is still in place. Currently only taking blood pressure medication. GANESH GONZALEZ PA-C [address], [place], [address], [facility]. 09/15/2023 10:52:26
--- OUTSIDE RECORDS SUMMARY | 2023-11-23 01:35 | XMS_ITS | Encounter Summary ---
Author Organization [facility] Address [facility] [place] [address] Care Team Providers Care Bricklayer Apprentice Name Role Phone Unavailable Primary Care Provider Unavailabl e Reason for Visit * Reason Onset Date Comments Reminder Appointment 07/01/2020 Encounter Details Date Type Department Care Team (Late st Contact Info) Description 07/01/2020 [place] [phone] Norberto Gomez MD [facility] [place] [address] Reminder Appointment Social History Tobacco Use Types Packs/Day Years Used Date Smoking Tobacco: Never Assessed Sex and Gender Information Value Date Recorded Sex Assigned at Not on file Gender Identity Not on file Sexual Orientation Not on file documented as of this encounter Miscellaneous Notes * Telephone Encounter - Imelda Woodson CMA - 07/01/2020 11:34 AM EDT Unable to review medications and allergies prior to upcoming tele- appointment scheduled with Neurology provider. documented in this encounter Plan of Treatment Not on file documented as of this encounter Visit Diagnoses Not on filedocumented in this encounter
--- OUTSIDE RECORDS SUMMARY | 2023-11-23 01:35 | XMS_ITS | Encounter Summary ---
Author Organization [facility] Address [facility] [place] [address] Care Team Providers Care International Broadcast Music Librarian Name Role Phone Unavailable Primary Care Provider Unavailabl e Encounter Details Date Type Department Care Team (Late st Contact Info) Description 07/02/2020 Tele[place] [phone] Norberto Gomez MD [facility] [place] [address] Social History Tobacco Use Types Packs/Day Years Used Date Smoking Tobacco: Never Assessed Sex and Gender Information Value Date Recorded Sex Assigned at Not on file Gender Identity Not on file Sexual Orientation Not on file documented as of this encounter Miscellaneous Notes * Telephone Encounter - Stephanie Armijo - 05/21/2021 4:35 PM EST Letter mailed to patient requesting call back for scheduling. * Telephone Encounter - Rachel Landry - 05/02/2021 4:02 PM EST Faxed MRI order to [facility] on 05/01 Postponing 1 wk * Telephone Encounter - Rachel Landry - 07/02/2020 9:35 AM EDT Patient needs f/u appointment(s): With AP/AW on/around 07/02/21 1 yr TOV, s/p Meningioma, MRI Brain at [place] prior * Telephone Encounter - Rachel Landry - 07/02/2020 9:20 AM EDT Norberto Gomez MD Sent: Tara July 02, 2020 ??9:14 AM To: P [facility] [place] ?? Message MRI brain +/- 1 yr @ [place]. ?? MOODY can call documented in this encounter Plan of Treatment Not on file documented as of this encounter Visit Diagnoses Not on filedocumented in this encounter
--- OUTSIDE RECORDS SUMMARY | 2023-11-23 01:35 | XMS_ITS | Encounter Summary ---
Author Organization [facility] [place] [address] Care Team Providers Care Printing Screen Assembler Name Role Phone Unavailable Primary Care Provider Unavailabl e Reason for Visit * Reason Comments Brain Tumor * Consultation (Routine) - Closed Specialty Diagnoses / Procedures Referred By Rm martinez Referred To Contact Neurosurgery Diagnoses Incidental finding of meningioma Zuleyma James, CUSTOMER RELATIONS ADVISOR [address] [place] [address] [facility] [address] [place] [phone] Referral ID Status Reason Start Date Expiration Date V isits Requested Visits Authorized [id number] Closed Consult, Test & Treat 11/20/2019 11/19/2020 1 1 Encounter Details Date Type Department Care Team (Late st Contact Info) Description 12/05/2019 10:30 AM EDT TH Visit (TeleHealth) [place] [address] Norberto Gomez MD [facility] [place] [address] Meningioma Social History Tobacco Use Types Packs/Day Years Used Date Smoking Tobacco: Never Assessed Sex and Gender Information Value Date Recorded Sex Assigned at Not on file Gender Identity Not on file Sexual Orientation Not on file documented as of this encounter Progress Notes * Norberto Gomez MD - 12/05/2019 10:30 AM EDT I just spoke with Ananth on the phone. He was apparently involved in a head trauma and underwent a CTscan as part of the trauma work-up. While no intracranial pathology was found referable to his trauma, we did find a left frontal meningioma. He was subsequently referred for neurosurgical evaluation. He has no history of seizures or focal neurologic deficit. The meningioma is moderately to heavily calcified. It is located in the left frontal region. It measures approximately 24 mm in greatest dimension. There is clearly mass-effect around it but no significant edema or other worrisome signs. I explained to Ananth that the options would be either treatment which would involve surgical resection or observation. He is more inclined with the latter. I will set up an MRI scan for him to have performed at [place] in 6 months. If he has any new symptoms he knows to contact me. documented in this encounter Plan of Treatment Not on file documented as of this encounter Visit Diagnoses Diagnosis Meningioma Benign neoplasm of cerebral meninges documented in this encounter
--- OUTSIDE RECORDS SUMMARY | 2023-11-23 01:35 | XMS_ITS | Data Portability ---
Author Organization [place] - [facility] [place] [address] Assessment No assessment recorded. Plan of Treatment Reminders Order Date Submit Date Provider Last Modified By Organization Details Last Modified Time Details Appointments Follow Up 30 2023 08:00A M Not available Not available Not available Lab HbA1c (hemoglob in A1c), blood 2023 024 [facility] (Registration ), [address] [place] [address] [place], [address], 09/15/2023 11:41:40 CMP, serum or plasma 2023 024 [facility] (Registration ), [address] [place] [address] [place], [address], 09/15/2023 11:41:29 lipid panel, serum 2023 024 [facility] (Registration ), [address] [place] [address] [place], [address], 09/15/2023 11:41:35 Referral None recorded. Procedures None recorded. Surgeries None recorded. Imaging None recorded. Medication Orders lisinopri l 10 mg-hydroc hlorothia zide 12.5 mg tablet 2023 024 [facility], [address], [place], [address], 10/11/2023 16:26:28 Patient TargetsNo targets recorded. Patient Instructions Encounter Date Encounter Id Patient Instructions Last Modified By Organization Details Last Modified Time 09/15/2023 [id number] Ananth - we will lower your blood pressure medication to 10/12.5 mg daily. You can cut the current tablets in half. We will check fasting blood work just prior to followup in 3 months. [email or web address] Not available 09/15/2023 10:27:02 Reason for Referral None Reported. Results Created Date Observation Date Name Description Value Unit Range Abnormal Flag LastModifiedBy Organization Detail LastModifiedTime 08/19/19 24 08/19/2023 COMPL ETE BLOOD COUNT W/DIF F WBC 6.87 10_3/ uL 4.4-10 .8 normal Not Available [address] [place], [address] 08/19/2023 10:24:13 08/19/19 24 08/19/2023 COMPL ETE BLOOD COUNT W/DIF F RBC 4.47 10_6/ uL 4.36-5 .78 normal Not Available [address] [place], [address] 08/19/2023 10:24:13 08/19/19 24 08/19/2023 COMPL ETE BLOOD COUNT W/DIF F HGB 12.6 g/dL 13.5-1 7.5 low Not Available [address] [place], [address] 08/19/2023 10:24:13 08/19/19 24 08/19/2023 COMPL ETE BLOOD COUNT W/DIF F HCT 39.9 % 40.0-5 0.0 low Not Available [address] [place], [address] 08/19/2023 10:24:13 08/19/19 24 08/19/2023 COMPL ETE BLOOD COUNT W/DIF F MCV 89 fL 80-95 normal Not Available [address] [place], [address] 08/19/2023 10:24:13 08/19/19 24 08/19/2023 COMPL ETE BLOOD COUNT W/DIF F MCH 28.2 pg 27.0-3 3.0 normal Not Available [address] [place], [address] 08/19/2023 10:24:13 08/19/19 24 08/19/2023 COMPL ETE BLOOD COUNT W/DIF F MCHC 31.6 % 32.0-3 6.0 low Not Available [address] [place], [address] 08/19/2023 10:24:13 08/19/19 24 08/19/2023 COMPL ETE BLOOD COUNT W/DIF F RDW 15.9 % 11.8-1 4.1 high Not Available [address] [place], [address] 08/19/2023 10:24:13 08/19/19 24 08/19/2023 COMPL ETE BLOOD COUNT W/DIF F platelet count 363 10_3/ uL 130-40 0 normal Not Available [address] [place], [address] 08/19/2023 10:24:13 08/19/19 24 08/19/2023 COMPL ETE BLOOD COUNT W/DIF F MPV 10.3 fL 8.0-11 .0 normal Not Available [address] [place], [address] 08/19/2023 10:24:13 08/19/19 24 08/19/2023 COMPL ETE BLOOD COUNT W/DIF F neutrophils % 68.6 % Not Available [address] [place], [address] 08/19/2023 10:24:13 08/19/19 24 08/19/2023 COMPL ETE BLOOD COUNT W/DIF F lymphocytes % 18.9 % Not Available [address] [place], [address] 08/19/2023 10:24:13 08/19/19 24 08/19/2023 COMPL ETE BLOOD COUNT W/DIF F monocytes % 8.7 % Not Available Xavier denny [address] [place], [address] 08/19/2023 10:24:13 08/19/19 24 08/19/2023 COMPL ETE BLOOD COUNT W/DIF F eosinophils % 2.2 % Not Available [address] [place], [address] 08/19/2023 10:24:13 08/19/19 24 08/19/2023 COMPL ETE BLOOD COUNT W/DIF F basophils % 0.7 % Not Available Xavier denny [address] [place], [address] 08/19/2023 10:24:13 08/19/19 24 08/19/2023 COMPL ETE BLOOD COUNT W/DIF F immature grans % 0.9 % Not Available [address] [place], [address] 08/19/2023 10:24:13 08/19/19 24 08/19/2023 COMPL ETE BLOOD COUNT W/DIF F nucleated RBC 0.0 % 0.0-0. 3 normal Not Available [address] [place], [address] 08/19/2023 10:24:13 08/19/19 24 08/19/2023 COMPL ETE BLOOD COUNT W/DIF F absolute neutrophil count 4.71 10_3/ uL 1.2-6. 7 normal Not Available [address] [place], [address] 08/19/2023 10:24:13 08/19/19 24 08/19/2023 COMPL ETE BLOOD COUNT W/DIF F absolute lymphocyte count 1.30 10_3/ uL 1.2-3. 4 normal Not Available [address] [place], [address] 08/19/2023 10:24:13 08/19/19 24 08/19/2023 COMPL ETE BLOOD COUNT W/DIF F absolute monocyte count 0.60 10_3/ uL 0.1-0. 8 normal Not Available [address] [place], [address] 08/19/2023 10:24:13 08/19/19 24 08/19/2023 COMPL ETE BLOOD COUNT W/DIF F absolute eosinophil count 0.15 10_3/ uL 0.0-0. 7 normal Not Available [address] [place], [address] 08/19/2023 10:24:13 08/19/19 24 08/19/2023 COMPL ETE BLOOD COUNT W/DIF F absolute basophil count 0.05 10_3/ uL 0.0-0. 2 normal Not Available [address] [place], [address] 08/19/2023 10:24:13 08/19/19 24 08/19/2023 COMPR EHENS LYNDA METAB OLIC PANEL calcium 9.3 mg/dL 8.5-10 .1 normal Not Available [address] [place], [address] 08/19/2023 11:12:19 08/19/19 24 08/19/2023 COMPR EHENS LYNDA METAB OLIC PANEL glucose 153 mg/dL 74-106 high Not Available [address] [place], [address] 08/19/2023 11:12:19 08/19/19 24 08/19/2023 COMPR EHENS LYNDA METAB OLIC PANEL BUN 20 mg/dL 7-18 high Not Available [address] [place], [address] 08/19/2023 11:12:19 08/19/19 24 08/19/2023 COMPR EHENS LYNDA METAB OLIC PANEL creatinine 1.0 mg/dL 0.70-1 .30 normal Not Available [address] [place], [address] 08/19/2023 11:12:19 08/19/19 24 08/19/2023 COMPR EHENS LYNDA METAB OLIC PANEL estimated GFR 79.47 mL/min /1.73m 2 Not Available [address] [place], [address] 08/19/2023 11:12:19 08/19/19 24 08/19/2023 COMPR EHENS LYNDA METAB OLIC PANEL total protein 7.2 g/dL 6.4-8. 2 normal Not Available [address] [place], [address] 08/19/2023 11:12:19 08/19/19 24 08/19/2023 COMPR EHENS LYNDA METAB OLIC PANEL albumin 3.1 g/dL 3.4-5. 0 low Not Available [address] [place], [address] 08/19/2023 11:12:19 08/19/19 24 08/19/2023 COMPR EHENS LYNDA METAB OLIC PANEL bilirubin, total 0.4 mg/dL 0.2-1. 0 normal Not Available [address] [place], [address] 08/19/2023 11:12:19 08/19/19 24 08/19/2023 COMPR EHENS LYNDA METAB OLIC PANEL alk phos 123 U/L 46-116 high Not Available [address] [place], [address] 08/19/2023 11:12:19 08/19/19 24 08/19/2023 COMPR EHENS LYNDA METAB OLIC PANEL sodium 143 mmol/ L 136-14 5 normal Not Available [address] [place], [address] 08/19/2023 11:12:19 08/19/19 24 08/19/2023 COMPR EHENS LYNDA METAB OLIC PANEL potassium 4.0 mmol/ L 3.5-5. 1 normal Not Available [address] [place], [address] 08/19/2023 11:12:19 08/19/19 24 08/19/2023 COMPR EHENS LYNDA METAB OLIC PANEL chloride 105 mmol/ L 98-107 normal Not Available [address] [place], [address] 08/19/2023 11:12:19 08/19/19 24 08/19/2023 COMPR EHENS LYNDA METAB OLIC PANEL CO2 30.6 mmol/ L 21.0-3 2.0 normal Not Available [address] [place], [address] 08/19/2023 11:12:19 08/19/19 24 08/19/2023 COMPR EHENS LYNDA METAB OLIC PANEL anion gap 7.4 mmol/ L 3-11 normal Not Available [address] [place], [address] 08/19/2023 11:12:19 08/19/19 24 08/19/2023 COMPR EHENS LYNDA METAB OLIC PANEL AST 30 U/L 15-37 normal Not Available [address] [place], [address] 08/19/2023 11:12:19 08/19/19 24 08/19/2023 COMPR EHENS LYNDA METAB OLIC PANEL ALT 79 U/L 16-63 high Not Available [address] [place], [address] 08/19/2023 11:12:19 08/19/19 24 08/19/2023 STEVENSON TIN ferritin 94 NG/mL 26-388 normal Not Available [address] [place], [address] 08/19/2023 11:12:20 09/02/19 24 09/02/2023 COMPL ETE BLOOD COUNT W/DIF F WBC 4.80 10_3/ uL 4.4-10 .8 normal Not Available [address] [place], [address] 09/02/2023 08:54:08 09/02/19 24 09/02/2023 COMPL ETE BLOOD COUNT W/DIF F RBC 4.73 10_6/ uL 4.36-5 .78 normal Not Available [address] [place], [address] 09/02/2023 08:54:08 09/02/19 24 09/02/2023 COMPL ETE BLOOD COUNT W/DIF F HGB 13.7 g/dL 13.5-1 7.5 normal Not Available [address] [place], [address] 09/02/2023 08:54:08 09/02/19 24 09/02/2023 COMPL ETE BLOOD COUNT W/DIF F HCT 41.8 % 40.0-5 0.0 normal Not Available [address] [place], [address] 09/02/2023 08:54:08 09/02/19 24 09/02/2023 COMPL ETE BLOOD COUNT W/DIF F MCV 88 fL 80-95 normal Not Available [address] [place], [address] 09/02/2023 08:54:08 09/02/19 24 09/02/2023 COMPL ETE BLOOD COUNT W/DIF F MCH 29.0 pg 27.0-3 3.0 normal Not Available [address] [place], [address] 09/02/2023 08:54:08 09/02/19 24 09/02/2023 COMPL ETE BLOOD COUNT W/DIF F MCHC 32.8 % 32.0-3 6.0 normal Not Available [address] [place], [address] 09/02/2023 08:54:08 09/02/19 24 09/02/2023 COMPL ETE BLOOD COUNT W/DIF F RDW 15.9 % 11.8-1 4.1 high Not Available [address] [place], [address] 09/02/2023 08:54:08 09/02/19 24 09/02/2023 COMPL ETE BLOOD COUNT W/DIF F platelet count 267 10_3/ uL 130-40 0 normal Not Available [address] [place], [address] 09/02/2023 08:54:08 09/02/19 24 09/02/2023 COMPL ETE BLOOD COUNT W/DIF F MPV 9.7 fL 8.0-11 .0 normal Not Available [address] [place], [address] 09/02/2023 08:54:08 09/02/19 24 09/02/2023 COMPL ETE BLOOD COUNT W/DIF F neutrophils % 52.7 % Not Available [address] [place], [address] 09/02/2023 08:54:08 09/02/19 24 09/02/2023 COMPL ETE BLOOD COUNT W/DIF F lymphocytes % 29.2 % Not Available [address] [place], [address] 09/02/2023 08:54:08 09/02/19 24 09/02/2023 COMPL ETE BLOOD COUNT W/DIF F monocytes % 11.3 % Not Available [address] [place], [address] 09/02/2023 08:54:08 09/02/19 24 09/02/2023 COMPL ETE BLOOD COUNT W/DIF F eosinophils % 6.0 % Not Available [address] [place], [address] 09/02/2023 08:54:08 09/02/19 24 09/02/2023 COMPL ETE BLOOD COUNT W/DIF F basophils % 0.8 % Not Available [address] [place], [address] 09/02/2023 08:54:08 09/02/19 24 09/02/2023 COMPL ETE BLOOD COUNT W/DIF F immature grans % 0.0 % Not Available [address] [place], [address] 09/02/2023 08:54:08 09/02/19 24 09/02/2023 COMPL ETE BLOOD COUNT W/DIF F nucleated RBC 0.0 % 0.0-0. 3 normal Not Available [address] [place], [address] 09/02/2023 08:54:08 09/02/19 24 09/02/2023 COMPL ETE BLOOD COUNT W/DIF F absolute neutrophil count 2.53 10_3/ uL 1.2-6. 7 normal Not Available [address] [place], [address] 09/02/2023 08:54:08 09/02/19 24 09/02/2023 COMPL ETE BLOOD COUNT W/DIF F absolute lymphocyte count 1.40 10_3/ uL 1.2-3. 4 normal Not Available [address] [place], [address] 09/02/2023 08:54:08 09/02/19 24 09/02/2023 COMPL ETE BLOOD COUNT W/DIF F absolute monocyte count 0.54 10_3/ uL 0.1-0. 8 normal Not Available [address] [place], [address] 09/02/2023 08:54:08 09/02/19 24 09/02/2023 COMPL ETE BLOOD COUNT W/DIF F absolute eosinophil count 0.29 10_3/ uL 0.0-0. 7 normal Not Available [address] [place], [address] 09/02/2023 08:54:08 09/02/19 24 09/02/2023 COMPL ETE BLOOD COUNT W/DIF F absolute basophil count 0.04 10_3/ uL 0.0-0. 2 normal Not Available [address] [place], [address] 09/02/2023 08:54:08 09/02/19 24 09/02/2023 HEMOG LOBIN A1C hemoglobin A1C 6.1 % <5.7 high Not Available [address] [place], [address] 09/02/2023 09:16:07 09/02/19 24 09/02/2023 COMPR EHENS LYNDA METAB OLIC PANEL calcium 9.5 mg/dL 8.5-10 .1 normal Not Available [address] [place], [address] 09/02/2023 13:24:44 09/02/19 24 09/02/2023 COMPR EHENS LYNDA METAB OLIC PANEL glucose 113 mg/dL 74-106 high Not Available [address] [place], [address] 09/02/2023 13:24:44 09/02/19 24 09/02/2023 COMPR EHENS LYNDA METAB OLIC PANEL BUN 19 mg/dL 7-18 high Not Available [address] [place], [address] 09/02/2023 13:24:44 09/02/19 24 09/02/2023 COMPR EHENS LYNDA METAB OLIC PANEL creatinine 0.9 mg/dL 0.70-1 .30 normal Not Available [address] [place], [address] 09/02/2023 13:24:44 09/02/19 24 09/02/2023 COMPR EHENS LYNDA METAB OLIC PANEL estimated GFR 90.18 mL/min /1.73m 2 Not Available [address] [place], [address] 09/02/2023 13:24:44 09/02/19 24 09/02/2023 COMPR EHENS LYNDA METAB OLIC PANEL total protein 7.7 g/dL 6.4-8. 2 normal Not Available [address] [place], [address] 09/02/2023 13:24:44 09/02/19 24 09/02/2023 COMPR EHENS LYNDA METAB OLIC PANEL albumin 3.5 g/dL 3.4-5. 0 normal Not Available [address] [place], [address] 09/02/2023 13:24:44 09/02/19 24 09/02/2023 COMPR EHENS LYNDA METAB OLIC PANEL bilirubin, total 0.5 mg/dL 0.2-1. 0 normal Not Available [address] [place], [address] 09/02/2023 13:24:44 09/02/19 24 09/02/2023 COMPR EHENS LYNDA METAB OLIC PANEL alk phos 100 U/L 46-116 normal Not Available [address] [place], [address] 09/02/2023 13:24:44 09/02/19 24 09/02/2023 COMPR EHENS LYNDA METAB OLIC PANEL sodium 142 mmol/ L 136-14 5 normal Not Available [address] [place], [address] 09/02/2023 13:24:44 09/02/19 24 09/02/2023 COMPR EHENS LYNDA METAB OLIC PANEL potassium 4.0 mmol/ L 3.5-5. 1 normal Not Available [address] [place], [address] 09/02/2023 13:24:44 09/02/19 24 09/02/2023 COMPR EHENS LYNDA METAB OLIC PANEL chloride 103 mmol/ L 98-107 normal Not Available [address] [place], [address] 09/02/2023 13:24:44 09/02/19 24 09/02/2023 COMPR EHENS LYNDA METAB OLIC PANEL CO2 29.3 mmol/ L 21.0-3 2.0 normal Not Available [address] [place], [address] 09/02/2023 13:24:44 09/02/19 24 09/02/2023 COMPR EHENS LYNDA METAB OLIC PANEL anion gap 9.7 mmol/ L 3-11 normal Not Available [address] [place], [address] 09/02/2023 13:24:44 09/02/19 24 09/02/2023 COMPR EHENS LYNDA METAB OLIC PANEL AST 14 U/L 15-37 low Not Available [address] [place], [address] 09/02/2023 13:24:44 09/02/19 24 09/02/2023 COMPR EHENS LYNDA METAB OLIC PANEL ALT 26 U/L 16-63 normal Not Available [address] [place], [address] 09/02/2023 13:24:44 09/02/19 24 09/02/2023 STEVENSON TIN ferritin 42 NG/mL 26-388 normal Not Available [address] [place], [address] 09/02/2023 10:07:16 09/02/19 24 09/02/2023 GGT GGT 26 U/L 15-85 normal Not Available [address] [place], [address] 09/02/2023 13:24:45 09/02/19 24 09/02/2023 STEVENSON TIN ferritin 42 NG/mL 26-388 normal Not Available [address] [place], [address] 09/02/2023 13:24:45 10/18/19 24 10/18/2023 COMPL ETE BLOOD COUNT W/DIF F WBC 5.74 10_3/ uL 4.4-10 .8 normal Not Available [address] [place], [address] 10/18/2023 09:37:49 10/18/19 24 10/18/2023 COMPL ETE BLOOD COUNT W/DIF F RBC 5.12 10_6/ uL 4.36-5 .78 normal Not Available [address] [place], [address] 10/18/2023 09:37:49 10/18/19 24 10/18/2023 COMPL ETE BLOOD COUNT W/DIF F HGB 15.0 g/dL 13.5-1 7.5 normal Not Available [address] [place], [address] 10/18/2023 09:37:49 10/18/19 24 10/18/2023 COMPL ETE BLOOD COUNT W/DIF F HCT 45.4 % 40.0-5 0.0 normal Not Available [address] [place], [address] 10/18/2023 09:37:49 10/18/19 24 10/18/2023 COMPL ETE BLOOD COUNT W/DIF F MCV 89 fL 80-95 normal Not Available [address] [place], [address] 10/18/2023 09:37:49 10/18/19 24 10/18/2023 COMPL ETE BLOOD COUNT W/DIF F MCH 29.3 pg 27.0-3 3.0 normal Not Available [address] [place], [address] 10/18/2023 09:37:49 10/18/19 24 10/18/2023 COMPL ETE BLOOD COUNT W/DIF F MCHC 33.0 % 32.0-3 6.0 normal Not Available [address] [place], [address] 10/18/2023 09:37:49 10/18/19 24 10/18/2023 COMPL ETE BLOOD COUNT W/DIF F RDW 15.6 % 11.8-1 4.1 high Not Available [address] [place], [address] 10/18/2023 09:37:49 10/18/19 24 10/18/2023 COMPL ETE BLOOD COUNT W/DIF F platelet count 228 10_3/ uL 130-40 0 normal Not Available [address] [place], [address] 10/18/2023 09:37:49 10/18/19 24 10/18/2023 COMPL ETE BLOOD COUNT W/DIF F MPV 9.0 fL 8.0-11 .0 normal Not Available [address] [place], [address] 10/18/2023 09:37:49 10/18/19 24 10/18/2023 COMPL ETE BLOOD COUNT W/DIF F neutrophils % 61.1 % Not Available [address] [place], [address] 10/18/2023 09:37:49 10/18/19 24 10/18/2023 COMPL ETE BLOOD COUNT W/DIF F lymphocytes % 24.9 % Not Available [address] [place], [address] 10/18/2023 09:37:49 10/18/19 24 10/18/2023 COMPL ETE BLOOD COUNT W/DIF F monocytes % 10.3 % Not Available [address] [place], [address] 10/18/2023 09:37:49 10/18/19 24 10/18/2023 COMPL ETE BLOOD COUNT W/DIF F eosinophils % 2.8 % Not Available [address] [place], [address] 10/18/2023 09:37:49 10/18/19 24 10/18/2023 COMPL ETE BLOOD COUNT W/DIF F basophils % 0.7 % Not Available [address] [place], [address] 10/18/2023 09:37:49 10/18/19 24 10/18/2023 COMPL ETE BLOOD COUNT W/DIF F immature grans % 0.2 % Not Available [address] [place], [address] 10/18/2023 09:37:49 10/18/19 24 10/18/2023 COMPL ETE BLOOD COUNT W/DIF F nucleated RBC 0.0 % 0.0-0. 3 normal Not Available [address] [place], [address] 10/18/2023 09:37:49 10/18/19 24 10/18/2023 COMPL ETE BLOOD COUNT W/DIF F absolute neutrophil count 3.51 10_3/ uL 1.2-6. 7 normal Not Available [address] [place], [address] 10/18/2023 09:37:49 10/18/19 24 10/18/2023 COMPL ETE BLOOD COUNT W/DIF F absolute lymphocyte count 1.43 10_3/ uL 1.2-3. 4 normal Not Available [address] [place], [address] 10/18/2023 09:37:49 10/18/19 24 10/18/2023 COMPL ETE BLOOD COUNT W/DIF F absolute monocyte count 0.59 10_3/ uL 0.1-0. 8 normal Not Available [address] [place], [address] 10/18/2023 09:37:49 10/18/19 24 10/18/2023 COMPL ETE BLOOD COUNT W/DIF F absolute eosinophil count 0.16 10_3/ uL 0.0-0. 7 normal Not Available [address] [place], [address] 10/18/2023 09:37:49 10/18/19 24 10/18/2023 COMPL ETE BLOOD COUNT W/DIF F absolute basophil count 0.04 10_3/ uL 0.0-0. 2 normal Not Available [address] [place], [address] 10/18/2023 09:37:49 10/18/19 24 10/18/2023 COMPR EHENS LYNDA METAB OLIC PANEL calcium 9.4 mg/dL 8.5-10 .1 normal Not Available [address] [place], [address] 10/18/2023 09:50:51 10/18/19 10/18/2023 COMPR EHENS LYNDA METAB OLIC PANEL glucose 108 mg/dL 74-106 high Not Available [address] [place], [address] 10/18/2023 09:50:51 10/18/19 24 10/18/2023 COMPR EHENS LYNDA METAB OLIC PANEL BUN 20 mg/dL 7-18 high Not Available [address] [place], [address] 10/18/2023 09:50:51 10/18/19 24 10/18/2023 COMPR EHENS LYNDA METAB OLIC PANEL creatinine 0.9 mg/dL 0.70-1 .30 normal Not Available [address] [place], [address] 10/18/2023 09:50:51 10/18/19 24 10/18/2023 COMPR EHENS LYNDA METAB OLIC PANEL estimated GFR 90.18 mL/min /1.73m 2 Not Available [address] [place], [address] 10/18/2023 09:50:51 10/18/19 24 10/18/2023 COMPR EHENS LYNDA METAB OLIC PANEL total protein 7.4 g/dL 6.4-8. 2 normal Not Available [address] [place], [address] 10/18/2023 09:50:51 10/18/19 24 10/18/2023 COMPR EHENS LYNDA METAB OLIC PANEL albumin 3.5 g/dL 3.4-5. 0 normal Not Available [address] [place], [address] 10/18/2023 09:50:51 10/18/19 24 10/18/2023 COMPR EHENS LYNDA METAB OLIC PANEL bilirubin, total 0.59 mg/dL 0.2-1. 0 normal Not Available [address] [place], [address] 10/18/2023 09:50:51 10/18/19 24 10/18/2023 COMPR EHENS LYNDA METAB OLIC PANEL alk phos 88 U/L 46-116 normal Not Available [address] [place], [address] 10/18/2023 09:50:51 10/18/19 24 10/18/2023 COMPR EHENS LYNDA METAB OLIC PANEL sodium 144 mmol/ L 136-14 5 normal Not Available [address] [place], [address] 10/18/2023 09:50:51 10/18/19 24 10/18/2023 COMPR EHENS LYNDA METAB OLIC PANEL potassium 4.1 mmol/ L 3.5-5. 1 normal Not Available [address] [place], [address] 10/18/2023 09:50:51 10/18/19 24 10/18/2023 COMPR EHENS LYNDA METAB OLIC PANEL chloride 108 mmol/ L 98-107 high Not Available [address] [place], [address] 10/18/2023 09:50:51 10/18/19 24 10/18/2023 COMPR EHENS LYNDA METAB OLIC PANEL CO2 28.4 mmol/ L 21.0-3 2.0 normal Not Available [address] [place], [address] 10/18/2023 09:50:51 10/18/19 24 10/18/2023 COMPR EHENS LYNDA METAB OLIC PANEL anion gap 7.6 mmol/ L 3-11 normal Not Available [address] [place], [address] 10/18/2023 09:50:51 10/18/19 24 10/18/2023 COMPR EHENS LYNDA METAB OLIC PANEL AST 14 U/L 15-37 low Not Available [address] [place], [address] 10/18/2023 09:50:51 10/18/19 24 10/18/2023 COMPR EHENS LYNDA METAB OLIC PANEL ALT 16 U/L 16-63 normal Not Available [address] [place], [address] 10/18/2023 09:50:51 11/22/19 24 11/22/2023 COMPR EHENS LYNDA METAB OLIC PANEL calcium 9.8 mg/dL 8.5-10 .1 normal Not Available [address] [place], [address] 11/22/2023 08:24:44 11/22/19 24 11/22/2023 COMPR EHENS LYNDA METAB OLIC PANEL glucose 113 mg/dL 74-106 high Not Available [address] [place], [address] 11/22/2023 08:24:44 11/22/19 24 11/22/2023 COMPR EHENS LYNDA METAB OLIC PANEL BUN 22 mg/dL 7-18 high Not Available [address] [place], [address] 11/22/2023 08:24:44 11/22/19 24 11/22/2023 COMPR EHENS LYNDA METAB OLIC PANEL creatinine 1.0 mg/dL 0.70-1 .30 normal Not Available [address] [place], [address] 11/22/2023 08:24:44 11/22/19 24 11/22/2023 COMPR EHENS LYNDA METAB OLIC PANEL estimated GFR 79.47 mL/min /1.73m 2 Not Available [address] [place], [address] 11/22/2023 08:24:44 11/22/19 24 11/22/2023 COMPR EHENS LYNDA METAB OLIC PANEL total protein 7.5 g/dL 6.4-8. 2 normal Not Available [address] [place], [address] 11/22/2023 08:24:44 11/22/19 24 11/22/2023 COMPR EHENS LYNDA METAB OLIC PANEL albumin 3.6 g/dL 3.4-5. 0 normal Not Available [address] [place], [address] 11/22/2023 08:24:44 11/22/19 24 11/22/2023 COMPR EHENS LYNDA METAB OLIC PANEL bilirubin, total 0.69 mg/dL 0.2-1. 0 normal Not Available [address] [place], [address] 11/22/2023 08:24:44 11/22/19 24 11/22/2023 COMPR EHENS LYNDA METAB OLIC PANEL alk phos 95 U/L 46-116 normal Not Available [address] [place], [address] 11/22/2023 08:24:44 11/22/19 24 11/22/2023 COMPR EHENS LYNDA METAB OLIC PANEL sodium 141 mmol/ L 136-14 5 normal Not Available [address] [place], [address] 11/22/2023 08:24:44 11/22/19 24 11/22/2023 COMPR EHENS LYNDA METAB OLIC PANEL potassium 4.2 mmol/ L 3.5-5. 1 normal Not Available [address] [place], [address] 11/22/2023 08:24:44 11/22/19 24 11/22/2023 COMPR EHENS LYNDA METAB OLIC PANEL chloride 106 mmol/ L 98-107 normal Not Available [address] [place], [address] 11/22/2023 08:24:44 11/22/19 24 11/22/2023 COMPR EHENS LYNDA METAB OLIC PANEL CO2 26.9 mmol/ L 21.0-3 2.0 normal Not Available [address] [place], [address] 11/22/2023 08:24:44 11/22/19 24 11/22/2023 COMPR EHENS LYNDA METAB OLIC PANEL anion gap 8.1 mmol/ L 3-11 normal Not Available [address] [place], [address] 11/22/2023 08:24:44 11/22/19 24 11/22/2023 COMPR EHENS LYNDA METAB OLIC PANEL AST 17 U/L 15-37 normal Not Available [address] [place], [address] 11/22/2023 08:24:44 11/22/19 24 11/22/2023 COMPR EHENS LYNDA METAB OLIC PANEL ALT 23 U/L 16-63 normal Not Available Abiodun wagner [address] [place], [address] 11/22/2023 08:24:44 11/22/19 24 11/22/2023 LIPID 2 cholesterol 185 mg/dL <200 Not Available Xavier [address] [place], [address] 11/22/2023 08:24:44 11/22/19 24 11/22/2023 LIPID 2 triglyceride 51 mg/dL <150 Not Available [address] [place], [address] 11/22/2023 08:24:44 11/22/19 24 11/22/2023 LIPID 2 HDL cholesterol 63 mg/dL 40-60 Not Available Jd nath [address] [place], [address] 11/22/2023 08:24:44 11/22/19 24 11/22/2023 LIPID 2 calculated LDL 112 mg/dL <100 high Not Available Gustavo cevallos [address] [facility] [place], [address] 11/22/2023 08:24:44 Result Notes None recorded. Problems Name Status Onset Date Resolution Date Notes Provider Name and Address Organization Details Recorded Time Essential hypertension Active 195903/26/2021 - Comments only - Олег Haque MD - BP reasonable for age but not ideal. Adherence not 100%. try qhs dosing. BMP today Problem Code: I10; Problem Code Type: ICD-10; Not Available [facility] 3 05:55:59 Obstructive sleep apnea syndrome Active 200803/26/2021 - Comments only - Олег Haque MD - Managing with position, didn't tolerate CPAP Problem Code: G47.33; Problem Code Type: ICD-10; Not Available [facility] 3 05:55:59 Hyperlipidemi a Active 201403/26/2021 - Comments only - Олег Haque MD - He doesn't want a statin, but will repeat lipids to give feedback/dilan vation on diet. Problem Code: E78.5; Problem Code Type: ICD-10; Not Available [facility] 3 05:56:00 Allergic rhinitis Active 2014 Problem Code: J30.9; Problem Code Type: ICD-10; Not Available [facility] 3 05:56:00 Adult health examination Active 201403/26/2021 - Comments only - Олег Haque MD - His preventive care is UTD. Had colonoscopy, diverticulosi s, discussed diet, fiber is good. See below BMI is elevated, we discussed diet and exercise Problem Code: Z00.00; Problem Code Type: ICD-10; Not Available [facility] 3 05:56:00 Prediabetes Active 201603/26/2021 - Comments only - Олег Haque MD - A1c up slightly with weight. Discussed diet/activity Problem Code: R73.03; Problem Code Type: ICD-10; Not Available [facility] 3 05:56:00 Osteoarthriti s Active 201703/11/2020 - Comments only - Олег Haque MD - States glucosamine helping, discussed exercise. Problem Code: M19.90; Problem Code Type: ICD-10; Not Available [facility] 3 05:56:00 Body mass index 30+ - obesity Active 2018 Problem Code: Z68.30; Problem Code Type: ICD-10; Not Available [facility] 3 05:56:00 Acute non-infective otitis externa Active 2018 Problem Code: H60.599; Problem Code Type: ICD-10; Not Available [facility] 3 05:56:00 Benign neoplasm of cerebral meninges Active 201903/11/2020 - Comments only - Олег Haque MD - Had MRI and neurosurgery consult at [facility]. We need record. He denies symtoms. F/u scan plannin in June. Problem Code: D32.0; Problem Code Type: ICD-10; Not Available [facility] 3 05:56:01 Blood glucose outside reference range Completed 201612/30/2022 05/26/2017 - Comments only - Олег Haque MD - Denies symptoms, A1c reassuring Problem Code: R73.09; Problem Code Type: ICD-10; Not Available [facility] 3 05:56:06 Fever Completed 202003/26/2021 Problem Code: R50.9; Problem Code Type: ICD-10; Not Available [facility] 3 05:56:07 Periodic limb movement disorder Completed 200811/06/2014 Not Available [facility] 3 05:56:10 Hypertensive disorder Completed Not Available [facility] 3 05:56:12 Screening for malignant neoplasm of colon Completed 201803/26/2021 Problem Code: Z12.11; Problem Code Type: ICD-10; Not Available [facility] 3 05:56:16 Anxiety disorder Active 202201/06/2023 - [...] F41.9; Problem Code Type: ICD-10; Not Available [facility] 4 05:37:26 Intolerance to lactose Active 2022 Problem Code: E73.9; Problem Code Type: ICD-10; Not Available [facility] 4 05:37:26 Diarrhea Active 2022 Problem Code: R19.7; Problem Code Type: ICD-10; Not Available [facility] 4 05:37:26 Gallstone ileus Active 2023 s/p gallstone extraction 08/[address], [place], [address] , [facility]. 4 15:39:56 Problem Notes None recorded. Medical [...] Updated DateTime 4 186.436 cm 26.8 kg/m2 81147.4 4 g 98.4 [degF] 99 % 99 % 16 /min 70 /min 106 mm[Hg] 62 mm[Hg] GAL ELLIOTT RN [place] [facility] 4 10:04:32 Social History None recorded. Functional Status [...] Recorded Time Tdap 05/13/2010 completed Not Available [facility] 05:04:28 Tdap 05/20/2020 completed Not Available [facility] 05:04:28 Pneumococcal conjugate PCV 13 05/25/2016 completed Not Available [facility] 02/12/2023 05:04:29 Td(adult) unspecified formulation 10/02/2004 completed Not Available [facility] 02/12/2023 05:04:30 Influenza, split virus, trivalent, preservative 12/31/2014 completed Not Available [facility] 02/12/2023 05:04:31 Influenza, split virus, quadrivalent, PF 01/12/2019 completed Not Available [facility] 02/12/2023 05:04:32 Influenza, split virus, quadrivalent, preservative 12/22/2017 completed Not Available [facility] 02/12/2023 05:04:32 Influenza, split virus, quadrivalent, preservative 12/28/2016 completed Not Available [facility] 02/12/2023 05:04:32 Influenza, high-dose, quadrivalent, PF 02/12/2021 completed Not Available [facility] 02/12/2023 05:04:33 COVID-19, mRNA, LNP-S, PF, 100 mcg/0.5mL dose or 50 mcg/0.25mL dose 06/03/2020 completed Not Available [facility] 02/12/2023 05:04:34 SARS-COV-2 (COVID-19) vaccine, UNSPECIFIED 07/11/2020 completed Not Available [facility] 02/12/2023 05:04:35 pneumococcal polysaccharide PPV23 05/26/2017 completed Not Available [facility] 2022 05:04:36 influenza, unspecified formulation 12/11/2013 completed Not Available [facility] 02/12/2023 05:04:37 influenza, unspecified formulation 01/03/2020 completed Not Available [facility] 02/12/2023 05:04:37 influenza, unspecified formulation 02/11/2013 completed Not Available [facility] 02/12/2023 05:04:38 Past Encounters Encounter ID Performer Location Encounter Start Date Encounter Closed Date Diagnosis/Indication Diagnosis SNOMED-CT Code [id number] GANESH GONZLAEZ PA-C [facility] Tres Vasquez [facility] [place] [address] 09/15/2023 09:49:44 09/15/2023 10:49:38 Essential hypertension 89810831 Hyperlipidemia 68852469 Prediabetes 553797249 Gallstone ileus 10423093 Health Concerns Section Related Observation LastModified by Organization Detai ls LastModified Time None Recorded Concern Status LastModified by Organization Details LastModified Time None Recorded Advance Directives Directive None Recorded Payers Encounter Date Sequence Insurance Name Policy Number Policy Ramirez Covered Member ID Ramirez Member ID Guarantor Name 09/15/2023 2 [place] [facility] Ananth Ann [id number] Ananth Ann 09/15/2023 1 MED[place]: [employer] Ananth Ann [id number] Ananth Ann Notes Date Note Type [...] place. Currently only taking blood pressure medication. [address], [place], [address], [facility]. 09/15/2023 10:52:26
--- NOTE | 2023-11-23 06:45 | DI.CT_ITS ---
Exam(s) CT ABDOMEN PELVIS W EXAM: CT ABDOMEN PELVIS W CLINICAL HISTORY: f/u from gallstone, ileus. TECHNIQUE: Imaging Protocol: Axial computed tomography images with coronal and sagittal reformatted images were created and reviewed CONTRAST MATERIAL: Intravenous: Omnipaque 350 Contrast volume:100 ml Oral: yes / no COMPARISON: CT CT ABDOMEN PELVIS WO from 08/10/2023 FINDINGS: ABDOMEN and PELVIS: Lung Bases: No acute findings. Liver: Normal density. No suspicious mass. Gallbladder and biliary tract: Status post cholecystectomy.. No biliary dilation. Biliary air rem ains present. Pancreas: Normal density. No abnormal calcifications or inflammatory process. No evidence of mass. Spleen: Normal. Kidneys: Normal size, contour and axis. No radiodense stones. No obstructive uropathy. No suspicious masses seen. Adrenal glands: No masses seen. Vasculature: Abdominal aorta non-dilated. Soft tissues: Unremarkable. Bladder: No gross wall thickening. No calculi.No focal mass. Bowel: No obstruction. No bowel wall thickening. Sigmoid and descending colon diverticulosis. Tim endix normal. Peritoneal cavity: No ascites. No focal collection. No mesenteric inflammatory response. Bones: Unremarkable for age. Reproductive organs: Prostate enlarged. Right testicle appears superiorly positioned in the right in guinal canal. Lymph nodes: No pathologically enlarged lymph nodes. IMPRESSION:: Status post cholecystectomy. Biliary air is present, likely postsurgical. No bowel di latation. Diverticulosis. Right inguinal testicle. RADIATION DOSE DELIVERED: Total DLP DATA REPOSITORY: All CT scans at this facility are submitted to the National Radiology Data Registry (NRDR) Dose Index Registry (DIR) with the [employer] ([employer]). RADIATION OPTIMIZATION: All CT scans at this facility use at least one of these dose optimization te chniques: automated exposure control; mA and/or kV adjustment per patient size (includes targeted exa ms where dose is matched to clinical indication); or iterative reconstruction.
[2023-11-23] MEDS: Barium Sulfate 2% W/V-Creamy Vanilla Smoothie 450 ML BTL PO ×2 (07:51→07:52)
[2023-11-23] MEDS: Normal Saline - Diluent 50 ML VIAL IJ (10:00)
[2023-11-23] MEDS: Omnipaque 350 MG/ML 100 ML BTL IJ (10:01)
== END 2023-11-22 01:52 ==
LOC: DI 12-01 15:15
PROVIDERS: PCP Physician Assistant; Visit Provider Surgery
DX: K80.00 Calculus of gallbladder with acute cholecystitis without obstruction (principal)
CPT/HCPCS: 74177; J3490

== ENCOUNTER 2023-11-23 15:11 | Outpatient (CLI) | payer MEDICARE, BC, SELFPAY ==
[2023-11-22 08:21] LABS: ALT 23 U/L (16-63); AST 17 U/L (15-37); Albumin 3.6 g/dL (3.4-5.0); Alkaline Phosphatase 95 U/L (46-116); Anion Gap 8.1 mmol/L (3-11); BUN 22 mg/dL (7-18); Bilirubin, Total 0.69 mg/dL (0.2-1.0); CO2 26.9 mmol/L (21.0-32.0); Calcium 9.8 mg/dL (8.5-10.1); Calculated LDL 112 mg/dL (<100); Chloride 106 mmol/L (98-107); Cholesterol 185 mg/dL (<200); Estimated GFR 79.47 (mL/min/1.73m2); Glucose 113 mg/dL (74-106); HDL Cholesterol 63 mg/dL (40-60); Potassium 4.2 mmol/L (3.5-5.1); Sodium 141 mmol/L (136-145); Total Protein 7.5 g/dL (6.4-8.2); Triglyceride 51 mg/dL (<150)
== END 2023-11-23 15:12 | disposition home or self-care (01) ==
LOC: LBO 12-01 15:13
PROVIDERS: PCP Physician Assistant; Visit Provider Physician Assistant
DX: E78.5 Hyperlipidemia, unspecified (principal); I10 Essential (primary) hypertension
CPT/HCPCS: 36415; 80053; 80061

== ENCOUNTER → 2023-12-20 12:33 | Outpatient (BNVA) | payer MEDICARE, BC, SELFPAY | PROVIDERS: PCP Physician Assistant; Referring Provider Physician Assistant; Visit Provider Surgery | DX: Z48.815 Encounter for surgical aftercare following surgery on the digestive system (principal) | CPT/HCPCS: 99213 ==

== ENCOUNTER 2025-03-26 09:55 | Outpatient (CLI) | payer MEDICARE, BC, SELFPAY ==
[2025-03-26 10:47] LABS: HCT 49.1 % (40.0-50.0); HGB 16.9 g/dL (13.5-17.5); MCH 32.5 pg (27.0-33.0); MCHC 34.4 % (32.0-36.0); MCV 94 fL (80-95); MPV 9.5 fL (8.0-11.0); Platelet Count 199 10^3/uL (130-400); RBC 5.20 10^6/uL (4.36-5.78); RDW 12.9 % (11.8-14.1); RDW-SD 45.0 fL; WBC 6.23 10^3/uL (4.4-10.8)
[2025-03-26 13:52] LABS: Hemoglobin A1C 5.4 % (<5.7)
[2025-03-26 13:59] LABS: ALT 13 U/L (10-49); AST 19 U/L (<34); Albumin 4.7 g/dL (3.2-5.0); Alkaline Phosphatase 91 U/L (46-116); Anion Gap 9.8 mmol/L (3-11); BUN 17 mg/dL (9-23); Bilirubin, Total 0.7 mg/dL (0.2-1.2); CO2 27.2 mmol/L (20.0-31.0); Calcium 9.8 mg/dL (8.3-10.6); Chloride 107 mmol/L (98-107); Cholesterol 223 mg/dL (<200); Glucose 110 mg/dL (74-106); HDL Cholesterol 77 mg/dL (>or=40); Potassium 4.1 mmol/L (3.5-5.1); Sodium 144 mmol/L (136-145); Total Protein 8.2 g/dL (5.7-8.2)
== END 2025-03-26 09:56 | disposition home or self-care (01) ==
LOC: LBO 09:57
PROVIDERS: PCP Physician Assistant; Visit Provider Physician Assistant
DX: R73.03 Prediabetes (principal); I10 Essential (primary) hypertension; E78.5 Hyperlipidemia, unspecified
CPT/HCPCS: 36415; 80053; 80061; 85027; 83036